=== PATIENT | male | born 1960 | race Caucasian/White ===

== ENCOUNTER 2021-11-17 14:53 | Outpatient (CLI) | payer OTHER, SELFPAY ==
[2021-11-17 21:35] LABS: Potassium* 3.6 mmol/L (3.6-5.1)
[2021-11-17 21:38] LABS: Alanine Aminotransferase* 24 U/L (4-50); Cholesterol* 208 mg/dL (90-199); HDL Cholesterol* 36 mg/dL (>=40); LDL Cholesterol Calculated 130 mg/dL (<100); Triglycerides* 212 mg/dL (40-149)
== END 2021-11-17 14:54 | disposition home or self-care (01) ==
LOC: LKVREF 14:53
PROVIDERS: PCP Family Medicine; Visit Provider Family Medicine
DX: E78.5 Hyperlipidemia, unspecified (principal); Z00.00 Encounter for general adult medical examination without abnormal findings; Z13.9 Encounter for screening, unspecified
CPT/HCPCS: 80061; 84132; 84460

== ENCOUNTER 2022-10-24 14:22 | Outpatient (CLI) | payer OTHER, SELFPAY | END 2022-10-24 14:23 | disposition home or self-care (01) | PROVIDERS: PCP Family Medicine; Visit Provider Family Medicine | DX: I71.20 Thoracic aortic aneurysm, without rupture, unspecified (principal); I51.7 Cardiomegaly; I34.0 Nonrheumatic mitral (valve) insufficiency; I48.91 Unspecified atrial fibrillation | CPT/HCPCS: 93306 ==

== ENCOUNTER 2023-07-17 08:01 | Outpatient (CLI) | payer BC, SELFPAY | END 2023-07-17 08:02 | disposition home or self-care (01) | LOC: WOUND 08:01 | PROVIDERS: PCP Family Medicine; Visit Provider Family Medicine | DX: I87.312 Chronic venous hypertension (idiopathic) with ulcer of left lower extremity (principal); L97.328 Non-pressure chronic ulcer of left ankle with other specified severity; F10.10 Alcohol abuse, uncomplicated | CPT/HCPCS: 11042; G0463 ==

== ENCOUNTER 2023-07-23 08:32 | Outpatient (CLI) | payer BC, SELFPAY | END 2023-07-23 08:33 | disposition home or self-care (01) | LOC: WOUND 08:32 | PROVIDERS: PCP Family Medicine; Visit Provider Nurse Practitioner Family | DX: I87.312 Chronic venous hypertension (idiopathic) with ulcer of left lower extremity (principal); I87.2 Venous insufficiency (chronic) (peripheral); L97.322 Non-pressure chronic ulcer of left ankle with fat layer exposed; I89.0 Lymphedema, not elsewhere classified; F10.10 Alcohol abuse, uncomplicated | CPT/HCPCS: 97597 ==

== ENCOUNTER 2023-07-30 09:04 | Outpatient (CLI) | payer BC, SELFPAY | END 2023-07-30 09:05 | disposition home or self-care (01) | LOC: WOUND 09:04 | PROVIDERS: PCP Family Medicine; Visit Provider Physician Assistant | DX: I87.312 Chronic venous hypertension (idiopathic) with ulcer of left lower extremity (principal); I87.2 Venous insufficiency (chronic) (peripheral); L97.322 Non-pressure chronic ulcer of left ankle with fat layer exposed; I89.0 Lymphedema, not elsewhere classified | CPT/HCPCS: 97597 ==

== ENCOUNTER 2023-08-06 10:05 | Outpatient (CLI) | payer BC, SELFPAY | END 2023-08-06 10:06 | disposition home or self-care (01) | LOC: WOUND 10:05 | PROVIDERS: PCP Family Medicine; Visit Provider Nurse Practitioner Family | DX: I87.312 Chronic venous hypertension (idiopathic) with ulcer of left lower extremity (principal); I87.2 Venous insufficiency (chronic) (peripheral); L97.322 Non-pressure chronic ulcer of left ankle with fat layer exposed; I89.0 Lymphedema, not elsewhere classified | CPT/HCPCS: 11042 ==

== ENCOUNTER 2023-08-09 15:36 | Outpatient (CLI) | payer BC, SELFPAY ==
--- OUTSIDE RECORDS SUMMARY | 2023-08-09 15:38 | XMS_ITS | Referral Summary ---
Author Name Unknown Organization [facility] Address [address] [place] [address] Care Team Providers Care Round Boner Name Role Phone Elsewhere, Pcp Primary Care Provider Unavailabl e Source Comments Patient records contain information from all sites at [facility]. For routine questions regarding patient records, call [phone] during business hours, M-F 8:00 AM - 5:00 PM Central Time. Record requests for emergency care only can be directed to [phone] at any time.[facility] Encounters Date Type Department Care Team Description 07/30/2023 2:45 PM CDT - 07/30/2023 11:59 PM CDT Hospital Encounter Department of Radiology in [place], [place] [address] [place] [phone] Cuco Brown P.A.-C. 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 0 Active triamterene-hydroCH LOROthiazide (DYAZIDE) 37.5-25 mg per capsule Take 2 capsules by mouth daily. 0 Active losartan (COZAAR) 50 mg tablet Take 50 mg by mouth daily. 0 Active potassium chloride (K-TAB) 20 mEq CR tablet Take 20 mEq by mouth daily. 0 Active sildenafil citrate (SILDENAFIL, ANTIHYPERTENSIVE, ORAL) Take 20 mg by mouth daily. 0 Active terazosin (HYTRIN) 1 mg capsule Take 1-2 mg by mouth at bedtime. 0 Active metoprolol succinate (TOPROL-XL) 50 mg 24 hr tablet Take 50 mg by mouth daily. Do not crush or chew. 0 Active triamcinolone (KENALOG) 0.1 % ointment Apply 1 application topically 2 (two) times a day. 0 Active furosemide (LASIX) 20 mg tablet Take 1 tablet (20 mg total) by mouth daily for 10 days. 10 tablet 0 12/27/2017 Active allopurinoL (ZYLOPRIM) 300 mg tablet Take 300 mg by mouth daily. 0 Active tadalafiL (CIALIS) 5 mg tablet Take 1 tablet by mouth daily. 0 05/22/[address] Active aspirin [address] tablet Take 1 tablet by mouth daily. 0 02/08/2017 Active Active Problems Problem Noted Date Diagnosed Date Morbid Obesity Body Mass Ind ex Greater Than Or Equal To 40 Adult 07/25/2015 Overview: Morbid Obesity Body Mass Index (BMI) >40 Adult Hypertension 08/18/2009 Overview: HTN [Hypertension] Immunizations Name Administration Dates Next Due DTP 04/01/1962,01/22/1962,1961 DTaP (Infanrix, [employer]) 06/13/2007 OPV 05/01/1962,04/01/1962 Smallpox 06/05/1962 Tdap 06/13/2007 Social History Tobacco Use Types Packs/Day Years Used Date Smoking Tobacco: Never Alcohol Use Standard Drinks/Week Comments Yes 0 (1 standard drink = 0.6 oz pur e alcohol) 6-10 beers daily Nutrition Answer Date Recorded Nutrition: EVOO Fat Source Unknown 07/04 Nutrition: Servings of Fruits/Vegetables per Day Not on file 07/04/2020 Dental Answer Date Recorded Dental: Regular Dentist Unknown 07/05/19 21 Sex and Gender Information Value Date Recorded Sex Assigned at Not on file Gender Identity Not on file Sexual Orientation Not on file Last Filed Vital Signs Vital Sign Reading Time Taken Comments Blood Pressure 157/93 12/27/2017 6:30 PM CDT Pulse 72 12/27/2017 6:30 PM CDT Temperature 36.4 ??C (97.5 ??F) 12/27/2017 1:44 PM CD T Respiratory Rate 21 12/27/2017 6:30 PM CDT Oxygen Saturation 96% 12/27/2017 6:30 PM CDT Inhaled Oxygen Concentration - - Weight 192 kg (423 lb 2.8 oz) 12/27/2017 1:35 PM CDT Height 190.3 cm (6' 2.92) 12/27/2017 1:35 PM CD T Body Mass Index 53 12/27/2017 1:35 PM CDT Plan of Treatment Not on file Procedures Procedure Name Priority Date/Time Associated Diagnosis Comments US LOWER EXTREMITY VENOUS INSUFFICIENCY BILATERAL RAD - Routine (most inpatients and all outpatients) 07/30/2023 5:03 PM CDT 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 Severe incompetence of the remnant great saphenous vein at the knee. The great saphenous vein connects to the superficial epigastric vein and anterior accessory vein in the mid thigh. Varicosities arise off the great saphenous vein in the mid thigh and connect to the anterior accessory saphenous vein. Varicosities also arise off the great saphenous vein in the calf and connect to the small saphenous vein. Mild incompetence of the anterior accessory saphenous vein. A paramedic vein is present off the posterior tibial vein. LEFT: Status post endovascular venous laser ablation of the great saphenous vein in 2017. 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 Varicosities arise off the anterior accessory saphenous vein in the upper thigh and connected to the remnant great saphenous vein in the calf and knee. A paramedic arises off the posterior tibial vein and has multiple varicosities, approximately 4 cm above a superficial ulcer in the medial left ankle. Narrative 07/30/2023 5:20 PM CDT EXAM: US LOWER EXTREMITY VENOUS INSUFFICIENCY BILATERAL Exam performed with color and spectral Doppler analysis. COMPARISON: Ultrasound lower extremity veins 12/27/2017 FINDINGS: RIGHT: Status post endovascular venous laser ablation of the great saphenous vein in 2017. Severe incompetence of the remnant great saphenous vein at the knee. The great saphenous vein connects to the superficial epigastric vein and anterior accessory vein in the mid thigh. Varicosities arise off the great saphenous vein in the mid thigh and connect to the anterior accessory saphenous vein. Varicosities also arise off the great saphenous vein in the calf and connect to the small saphenous vein. Mild incompetence of the anterior accessory saphenous vein. A paramedic vein is present off the posterior tibial vein. LEFT: Status post endovascular venous laser ablation of the great saphenous vein in 2017. 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 Varicosities arise off the anterior accessory saphenous vein in the upper thigh and connected to the remnant great saphenous vein in the calf and knee. A paramedic arises off the posterior tibial vein and has multiple varicosities, approximately 4 cm above a superficial ulcer in the medial left ankle. DVT SCREENING RIGHT: Negative for acute DVT. LEFT: Negative for acute DVT. Exam was performed with the patient standing and the leg being evaluated in a non weight-bearing position. Right CFV: Competent. Right FV: Competent. Right Pop: Competent. Right SFJ: Competent. Right AASV: Mild Incompetence. Right GSV Upper: Absent. Right GSV Knee: Severe Incompetence. Right GSV Calf : Competent. Right SPJ: Competent. Right SSV Calf: Competent. Right SFJ: 3.5 mm Right AASV: N/A Right GSV Upper: N/A Right GSV Knee: N/A Right SPJ: 6.5 mm Right SSV: 6.0 mm Left ??CFV: Competent. Left ??FV: Competent. Left ??Pop: Competent. Left ??SFJ: Competent. Left AASV: Competent. Left ??GSV Upper: Absent. Left ??GSV Knee: Severe Incompetence. Left ??GSV Calf: Competent. Left ??SPJ: Competent. Left ??SSV Calf: Competent. Left SFJ: 6.1 mm Left AASV: N/A Left GSV Upper: N/A Left GSV Knee: N/A Left SPJ: 6.4 mm Left SSV: 6.5 mm Absent= A Not Imaged= x Mild = 0.5 to 1 second Moderate= 1 to 3 seconds Severe = > 3 seconds * For the femoral and popliteal veins, significant reflux is greater than 1 second. May upgrade or downgrade depending on amplitude of reflux. Incidentally noted are multiple bilateral prominent inguinal lymph nodes, likely reactive. Procedure Note Clemente Liriano M.D. - 07/30/2023 EXAM: US LOWER EXTREMITY VENOUS INSUFFICIENCY BILATERAL Exam performed with color and spectral Doppler analysis. COMPARISON: Ultrasound lower extremity veins 12/27/2017 FINDINGS: RIGHT: Status post endovascular venous laser ablation of the greatsaphenous vein in 2017. Severe incompetence of the remnant great saphenousvein at the knee. The great saphenous vein connects to the superficialepigastric vein and anterior accessory vein in the mid thigh. Varicosities arise off the great saphenous vein inthe mid thigh and connect to the anterior accessory saphenous vein.Varicosities also arise off the great saphenous vein in the calf andconnect to the small saphenous vein. Mild incompetence of the anterior accessory saphenous vein. A paramedic veinis present off the posterior tibial vein. LEFT: Status post endovascular venous laser ablation of the greatsaphenous vein in 2017. Severe incompetence of the great saphenous vein inthe knee. Varicosities arise off the anterior accessory saphenous vein inthe upper thigh and connected to the remnant great saphenous vein in the calf and knee. A paramedic arises offthe posterior tibial vein and has multiple varicosities, approximately 4cm above a superficial ulcer in the medial left ankle. DVT SCREENING RIGHT: Negative for acute DVT. LEFT: Negative for acute DVT. Exam was performed with the patient standing and the leg being evaluatedin a non weight-bearing position. Right CFV: Competent. Right FV: Competent. Right Pop: Competent. Right SFJ: Competent. Right AASV: Mild Incompetence. Right GSV Upper: Absent. Right GSV Knee: Severe Incompetence. Right GSV Calf : Competent. Right SPJ: Competent. Right SSV Calf: Competent. Right SFJ: 3.5 mm Right AASV: N/A Right GSV Upper: N/A Right GSV Knee: N/A Right SPJ: 6.5 mm Right SSV: 6.0 mm Left CFV: Competent. Left FV: Competent. Left Pop: Competent. Left SFJ: Competent. Left AASV: Competent. Left GSV Upper: Absent. Left GSV Knee: Severe Incompetence. Left GSV Calf: Competent. Left SPJ: Competent. Left SSV Calf: Competent. Left SFJ: 6.1 mm Left AASV: N/A Left GSV Upper: N/A Left GSV Knee: N/A Left SPJ: 6.4 mm Left SSV: 6.5 mm Absent= A Not Imaged= x Mild = 0.5 to 1 second Moderate= 1 to 3 seconds Severe = > 3 seconds * For the femoral and popliteal veins, significant reflux is greater than1 second. May upgrade or downgrade depending on amplitude of reflux. Incidentally noted are multiple bilateral prominent inguinal lymph nodes,likely reactive. IMPRESSION: RIGHT: Status post endovascular venous laser ablation of the greatsaphenous vein in 2017. Severe incompetence of the remnant great saphenousvein at the knee. The great saphenous vein connects to the superficialepigastric vein and anterior accessory vein in the mid thigh. Varicosities arise off the great saphenous vein inthe mid thigh and connect to the anterior accessory saphenous vein.Varicosities also arise off the great saphenous vein in the calf andconnect to the small saphenous vein. Mild incompetence of the anterior accessory saphenous vein. A paramedic veinis present off the posterior tibial vein. LEFT: Status post endovascular venous laser ablation of the greatsaphenous vein in 2017. Severe incompetence of the great saphenous vein inthe knee. Varicosities arise off the anterior accessory saphenous vein inthe upper thigh and connected to the remnant great saphenous vein in the calf and knee. A paramedic arises offthe posterior tibial vein and has multiple varicosities, approximately 4cm above a superficial ulcer in the medial left ankle. Cuco Brown P.A.-C. IMG US PROCEDUR ES * Leg-General Surgery Image Exam (07/11/2023 2:10 PM DOOR FITTER) 07/11/2023 2:10 PM DOOR FITTER Narrative [facility] - 07/11/2023 2:12 PM DOOR FITTER This order has been created and auto-finalized to support the import of images acquired without order. The clinical documentation to support these images can be found on the encounter that produced images. Provider Not In System IMG NON RAD IMAGI NG PROCEDURES [facility] NA from Last 3 Months Care Teams Round Boner Relationship Specialty Start Date End Date Elsewhere, Pcp PCP - General Family Medicine 08/06/17
--- OUTSIDE RECORDS SUMMARY | 2023-08-09 15:38 | XMS_ITS | Encounter Summary ---
Author Name Unknown Organization [facility] Address [address] [place] [address] Care Team Providers Care Sports Fitness And Wellness Director Name Role Phone Elsewhere, Pcp Primary Care Provider Unavailabl e Encounter Details Date Type Department Care Team (Late st Contact Info) Description 03/25/2018 [facility] [address] [place] [address] Terrell Fernandez M.D. [address] [place] [address] Contracture Dupuytren's (Primary Dx) Social History Tobacco Use Types Packs/Day Years Used Date Smoking Tobacco: Never Alcohol Use Standard Drinks/Week Comments Yes 0 (1 standard drink = 0.6 oz pur e alcohol) 6-10 beers daily Sex and Gender Information Value Date Recorded Sex Assigned at Not on file Gender Identity Not on file Sexual Orientation Not on file documented as of this encounter Plan of Treatment Not on file documented as of this encounter Visit Diagnoses Diagnosis Contracture Dupuytren's- Primary documented in this encounter Care Teams Sports Fitness And Wellness Director Relationship Specialty Start Date End Date Elsewhere, Pcp PCP - General Family Medicine 08/06/17 documented as of this encounter
--- OUTSIDE RECORDS SUMMARY | 2023-08-09 15:38 | XMS_ITS | Data Portability ---
Author Name Unknown Address [address] [place] [address] Phone [phone] Organization [place] [facility] [employer] Address [address] [place] [address] Assessment Encounter Date Assessment Date Assessment LastModified by Organization Details LastModified Time 12/28/2022 12/28/2022 The patient was informed of his diagnosis as detailed down below. At this time the patient was informed that I would NOT recommend phenol and alcohol procedures secondary to my significant concern regarding healing that procedure due to his underlying skin envelope. The patient was understanding of this and will be seen in 2 weeks for a recheck. [email or web address] Not available 12/28/2022 15:54:11 Plan of Treatment Reminders Order Date Submit Date Provider Last Modified By Organization Details Last Modified Time Details Appointments None record ed. Lab None record ed. Referral None record ed. Procedures None record ed. Surgeries None record ed. Imaging None record ed. Medication Orders None record ed. Patient TargetsNo targets recorded. Patient InstructionsNo instructions recorded. Reason for Referral None Reported. Problems Name Status Onset Date Resolution Date Notes Provider Name and Address Organization Details Recorded Time Foot joint pain Active 019 Foot joint pain; Original Code: 104782613 Maximino ginal Codesystem: SNOMED CT Classifica tion: Medical Confi rmation Status: Confirmed Not Available [facility] 3 09:13:23 Hypertensive disorder Active 017 Hypertensive disorder; Original Code: 9387354206 Or iginal Codesystem: SNOMED CT Classifica tion: Medical Confi rmation Status: Confirmed Not Available [facility] 3 09:13:23 Peroneal tendinitis of left lower limb Active 019 Peroneal tendinitis of left lower limb; Original Code: [id number] Or iginal Codesystem: SNOMED CT Classifica tion: Medical Confi rmation Status: Confirmed Not Available [facility] 3 09:13:23 Heart disease Active 017 Heart disease; Original Code: 27812486 Orig inal Codesystem: SNOMED CT Classifica tion: Medical Confi rmation Status: Confirmed Not Available [facility] 3 09:13:23 Foot pain Active 017 Foot pain; Original Code: 470003231 Maximino ginal Codesystem: SNOMED CT Classifica tion: Medical Confi rmation Status: Confirmed Not Available [facility] 3 09:13:23 Congenital varus deformity of foot Active 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 Procedures Surgical History Date Name Laterality Status Provider Name and Address Organization Details Recorded Time [address] Christianson active Jackie ca [place] [facility] 01/11/2023 14:18:[address] Christianson completed Arvind George, CARLA [address] [place], [address], [facility] - [facility] 12/28/2022 15:48:44 Imaging Results None recorded. Procedure Notes None recorded. Medical Equipment None Reported. Medications Name Sig Start Date Stop Date Status Note LastModified by Organization Details LastModified Time terazosin 5 mg capsule TAKE 1 CAPSULE BY MOUTH ONCE DAILY AT BEDTIME active Not Available Not Available No t Available triamterene 37.5 mg-hydrochlor othiazide 25 mg capsule TAKE 2 CAPSULES BY MOUTH IN THE MORNING active Not Available Not Available No t Available potassium chloride ER 20 mEq tablet,extend ed release(part/ cryst) TAKE 2 TABLETS BY MOUTH TWICE DAILY active Not Available Not Available No t Available allopurinol 300 mg tablet TAKE 1 TABLET BY MOUTH ONCE DAILY active Not Available Not Available No t Available furosemide 20 mg tablet TAKE 1 TABLET BY MOUTH ONCE DAILY IN THE MORNING AND 2 ONCE DAILY AT NOON -- TOTAL DAILY DOSE OF 60MG active Not Available Not Available No t Available metoprolol succinate ER 25 mg tablet,extend ed release 24 hr TAKE 1 TABLET BY MOUTH ONCE DAILY active Not Available Not Available No t Available tadalafil 5 mg tablet TAKE 1 TABLET BY MOUTH ONCE DAILY active Not Available Not Available No t Available Vitals None Recorded Social History None recorded. Functional Status None recorded. Mental Status None recorded. Family History Nothing Reported. Medical History No medical history recorded. Past Encounters Encounter ID Performer Location Encounter Start Date Encounter Closed Date Diagnosis/Indication Diagnosis SNOMED-CT Code [id number] Arvind George DPM [place] [facility] [address] [place] [address] 12/28/2022 14:45:58 12/28/2022 16:06:42 Paronychia of toe of right foot [id number] 02 Health Concerns Section Related Observation LastModified by Organization Detai ls LastModified Time None Recorded Concern Status LastModified by Organization Details LastModified Time None Recorded Advance Directives Directive None Recorded Payers Encounter Date Sequence Insurance Name Policy Number Policy Lin Covered Member ID Lin Member ID Guarantor Name 12/28/2022 1 [employer] - [facility] - CHOICE PLUS (POS) Robert Charles [id number] Robert Charles Notes Date Note Type Note Provider Name and Address Organization Details Recorded Time 12/28/2022 text/html HPI Notes: Patient is a 62 year old male established patient who presents to clinic today for evaluation of an infected, ingrown nail to the right big toe. Mentions that he has had these removed in the past by my partner and he has noticed that it became ingrown with substantial infection about 1 month prior to the right [place]. Arvind George DPM [address] [place], [address], [facility] - [facility] 12/28/2022 15:54:14
--- OUTSIDE RECORDS SUMMARY | 2023-08-09 15:38 | XMS_ITS ---
Author Name Unknown Organization [facility] Address [address] [place] [address] Care Team Providers Care Pawn Shop Keeper Name Role Phone Unavailable Unavailable Unavailable Surgery Details Not on file Complications Check Surgery Details section. Procedure Estimated Blood Loss Check Surgery Details section. Procedure Findings Check Surgery Details section. Procedure Specimens Taken Check Surgery Details section.
--- OUTSIDE RECORDS SUMMARY | 2023-08-09 15:38 | XMS_ITS | Encounter Summary ---
Author Name Unknown Organization [facility] Address [address] [place] [address] Care Team Providers Care Business Attorney Name Role Phone Elsewhere, Pcp Primary Care Provider Unavailabl e Reason for Referral * Outpatient (Routine) - Closed Specialty Diagnoses / Procedures Referred By Contac t Referred To Contact Diagnoses 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 Procedures US Lower Extremity Venous Insufficiency Bilateral Cuco Brown P.A.-C. [address] [place] [address] [facility] Region Referral ID Status Reason Start Date Expiration Date Visits Re quested Visits Authorized [id number] Closed 07/11/2023 07/10/2024 1 1 ERS' COMPENSATION HEARINGS OFFICER Reason for Visit * Reason Comments Consult Varicose veins * Appointment Request (Routine) - Closed Specialty Diagnoses / Procedures Referred By Contac t Referred To Contact General Surgery Referral ID Status Reason Start Date Expiration Date Visits Re quested Visits Authorized [id number] Closed 07/05/2023 07/04/2024 1 1 Encounter Details Date Type Department Care Team (Latest Contact Info) Description 07/11/2023 2:00 PM WORKERS' COMPENSATION HEARINGS OFFICER Comprehensive Visit Department of General Surgery in [place], [place] [address], [place] [address] Cuco Brown P.A.-C. [address], [place] [address] 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 (Primary Dx) Social History Tobacco Use Types [...] on file documented as of this encounter Consult Notes * Cuco Brown P.A.-C. - 07/11/2023 2:00 PM CST SUBJECTIVE REFERRAL: REASON FOR CONSULT Robert Charles is a 62 y.o. yo who presents for evaluation of Varicose Veins. He was referred by Rickie Bailey MD HISTORY OF PRESENT ILLNESS Mr. Charles is being seen in consultation today for complaints of varicose veins. Patient states that on July 02 he had a random occurrence of one of his varicose veins 'springing a leak' and bleeding heavily for which he had to seek emergency care. This has happened to him several times in the past. He did have a bilateral EVLT of his GSV back in 2017. Which leg: left If both, which is worse: left How long has the patient had problems: two months has been issues with bruising and bleeding Wear compression stockings: no - patient states that he is no longer able to get them on due to hisarthritis. He does use velcro compression devices which he has been doing for at least a 'couple years' - they do help somewhat with his swelling, but not with any bleeding. History of DVT: No Does the patient take anticoagulation: Aspirin (81 mg) occasionally History of superficial bleeding episodes: Yes, describe: multiple spontaneous bleeding from visiblevaricose veins History of trauma or broken bones to legs: No Does the patient have wounds (prolonged healing): Yes, describe: right lower extremity was treated a couple years ago for a non healing wound. 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 OBJECTIVE PHYSICAL EXAM General: Alert and oriented x 3 in no acute distress sitting in office chair. Legs: Severe edema in bilateral lower extremities. Left leg with some varicosities with the posterior aspect otherwise some minor small varicosities scattered throughout. Wound on left ankle. Pictures in [facility] Ultrasound: not done. Ordered today ASSESSMENT / PLAN #1 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 I have seen and examined Robert Charles in consultation for varicose veins. The patient wasadvised of the need to wear obky-[id number]-[id number] compression stockings for a minimum of 3 months. They understand once the ultrasound is complete, it will be reviewed by Dr. Tobias for consideration of treatment. Additionally, the nursing staff will complete the prior authorization process after which they will receive a phone call to notify them of approval and discuss scheduling the procedure. All of their questions were answered. ERS' COMPENSATION HEARINGS OFFICER documented in this encounter Plan of Treatment Not on file documented as of this encounter Results * US Lower Extremity Venous Insufficiency [...] of the anterior accessory saphenous vein. A branch administrator vein is present off the posterior tibial vein. LEFT: Status post endovascular venous laser ablation of the great saphenous vein in 2017. 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 Varicosities arise off the anterior accessory saphenous vein in the upper thigh and connected to the remnant great saphenous vein in the calf and knee. A branch administrator arises off the posterior tibial vein and [...] of the anterior accessory saphenous vein. A branch administrator vein is present off the posterior tibial vein. LEFT: Status post endovascular venous laser ablation of the great saphenous vein in 2017. 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 Varicosities arise off the anterior accessory saphenous vein in the upper thigh and connected to the remnant great saphenous vein in the calf and knee. A branch administrator arises off the posterior tibial vein and [...] of the anterior accessory saphenous vein. A branch administrator veinis present off the posterior tibial vein. LEFT: Status post endovascular venous laser ablation of the greatsaphenous vein in 2017. Severe incompetence of the great saphenous vein inthe knee. Varicosities arise off the anterior accessory saphenous vein inthe upper thigh and connected to the remnant great saphenous vein in the calf and knee. A branch administrator arises offthe posterior tibial vein and has [...] of the anterior accessory saphenous vein. A branch administrator veinis present off the posterior tibial vein. LEFT: Status post endovascular venous laser ablation of the greatsaphenous vein in 2017. Severe incompetence of the great saphenous vein inthe knee. Varicosities arise off the anterior accessory saphenous vein inthe upper thigh and connected to the remnant great saphenous vein in the calf and knee. A branch administrator arises offthe posterior tibial vein and has multiple varicosities, approximately 4cm above a superficial ulcer in the medial left ankle. Cuco GRANT US PROCEDUR ES documented in this encounter Visit Diagnoses Diagnosis 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- Primary 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 documented in this encounter Care Teams Business Attorney Relationship Specialty Start Date End Date Elsewhere, Pcp PCP - General Family Medicine 08/06/17 documented as of this encounter
--- OUTSIDE RECORDS SUMMARY | 2023-08-09 15:38 | XMS_ITS | Encounter Summary ---
Author Name Unknown Organization [facility] Address [address] [place] [address] Care Team Providers Care Cartography/Mapping Technician Name Role Phone Elsewhere, Pcp Primary Care Provider Unavailabl e Reason for Visit * Reason Comments Bleeding/Bruising Encounter Details Date Type Department Care Team (Late st Contact Info) Description 07/02/2023 9:37 PM SUPERVISOR CARBON PAPER COATING - 07/02/2023 11:51 PM SUPERVISOR CARBON PAPER COATING Emergency [facility] [address] [place] [id number] Varicose Veins Of Right Lower Extremity With Ulcer Of Ankle (HCC) (Primary Dx) Discharge Disposition: Home or Self Care Social History Tobacco Use Types Packs/Day Years [...] on file documented as of this encounter Medications at Time of Discharge Medication Sig Dispensed Refills Start Date End Date aspirin [address] tablet Take 1 tablet by mouth daily. 0 02/08/2017 aspirin, buffered, 325 mg tablet Take 325 mg by mouth daily. 0 furosemide (LASIX) 20 mg tablet Take 1 tablet (20 mg total) by mouth daily for 10 days. 10 tablet 0 12/27/2017 losartan (COZAAR) 50 mg tablet Take 50 mg by mouth daily. 0 metoprolol succinate (TOPROL-XL) 50 mg 24 hr tablet Take 50 mg by mouth daily. Do not crush or chew. 0 potassium chloride (K-TAB) 20 mEq CR tablet Take 20 mEq by mouth daily. 0 sildenafil citrate (SILDENAFIL, ANTIHYPERTENSIVE, ORAL) Take 20 mg by mouth daily. 0 tadalafiL (CIALIS) 5 mg tablet Take 1 tablet by mouth daily. 0 05/22/2023 terazosin (HYTRIN) 1 mg capsule Take 1-2 mg by mouth at bedtime. 0 triamcinolone (KENALOG) 0.1 % ointment Apply 1 application topically 2 (two) times a day. 0 triamterene-hydroCHLOR Othiazide (DYAZIDE) 37.5-25 mg per capsule Take 2 capsules by mouth daily. 0 documented as of this encounter Plan of Treatment Not on file documented as of this encounter Visit Diagnoses Diagnosis Varicose Veins Of Right Lower Extremity With Ulcer Of Ankle (HCC)- Primary documented in this encounter Care Teams Cartography/Mapping Technician Relationship Specialty Start Date End Date Elsewhere, Pcp PCP - General Family Medicine 08/06/17 documented as of this encounter
--- OUTSIDE RECORDS SUMMARY | 2023-08-09 15:38 | XMS_ITS | Clinical Summary ---
Author Name Unknown Organization [facility] Address [address] [place] [address] Care Team Providers Care Plan Coordinator Name Role Phone Elsewhere, Pcp Primary Care Provider Unavailabl e Source Comments Patient records contain information from all sites at [facility]. For routine questions regarding patient records, call [phone] during business hours, M-F 8:00 AM - 5:00 PM Central Time. Record requests for emergency care only can be directed to [phone] at any time.[facility] Allergies Active Allergy Reactions Criticality Noted Date [...] >40 Adult Hypertension 08/18/2009 Overview: HTN [Hypertension] Encounters Date Type Department Care Team Description 07/30/2023 2:45 PM CDT - 07/30/2023 11:59 PM CDT Hospital Encounter Department of Radiology in [place], [place] [address], [place] [address] Cuco Brown P.AJorden-C. 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 Discharge Disposition: Home or Self Care 07/11/2023 2:10 PM CASTING ROOM OPERATOR Ancillary Procedure Department of General Surgery 07/11/2023 2:00 PM CASTING ROOM OPERATOR Comprehensive Visit Department of General Surgery in [place], [place] [address], [place] [address] Cuco Brown P.A.-C. 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 (Primary Dx) 07/02/2023 9:37 PM CASTING ROOM OPERATOR - 07/02/2023 11:51 PM CASTING ROOM OPERATOR Emergency [facility] [address] [place] [phone] Varicose Veins Of Right Lower Extremity With Ulcer Of Ankle (HCC) (Primary Dx) Discharge Disposition: Home or Self Care from Last 3 Months Immunizations Name Administration Dates Next Due DTP 04/01/1962,01/22/1962,1961 DTaP (Infanrix, [employer]) 06/13/2007 OPV 05/01/1962,04/01/1962 Smallpox 06/05/1962 Tdap 06/13/2007 Family History Medical History Relation Name Comments Cancer Brother Testicular Canc er Leukemia Father Hypertension Mother Stroke Mother Relation Name Status Comments Brother Father Mother Social History Tobacco Use Types Packs/Day Years Used Date Smoking Tobacco: Never Alcohol Use Standard Drinks/Week Comments Yes 0 (1 standard drink = 0.6 oz pur e alcohol) 6-10 beers daily Nutrition Answer Date Recorded Nutrition: EVOO Fat Source Unknown 07/04 Nutrition: Servings of Fruits/Vegetables per Day Not on file 07/04/2020 Dental Answer Date Recorded Dental: Regular Dentist Unknown 07/05/19 Sex and Gender Information Value Date Recorded [...] 12/27/2017 1:35 PM CDT Plan of Treatment Health Maintenance Due Date Last Done Comments CT Colonography 1961 Cologuard 1961 FIT 1961 HIV Screening 1961 Hepatitis C Screening 1960 Office Visit for Blood Pressure Check / Re-check 1961 Orthopoxvirus Vaccine (1 - Risk 2-dose series) 1961 06/05/1962 Zoster Vaccines (1 of 2) 09/30/2011 Creatinine Level (Kidney Function Test) 12/27/2018 12/27/2017, 01/25/2016, 01/21/2015, Additional history exists Potassium Level 12/27/2018 12/27/2017, 01/05, 01/21/2015, Additional history exists Sodium Level 12/27/2018 12/27/2017, 01/05, 01/21/2015, Additional history exists Fasting Glucose for Diabetes Screening 12/27/2020 12/27/2017, 01/25/2016, 01/21/2015, Additional history exists Lipid (Cholesterol) Screening 01/24/2021 01/25/2016, 01/21/2015, 01/11/2014, Additional history exists Colonoscopy 06/02/2021 06/02/2011 Colorectal Cancer Screening 06/02/2021 COVID-19 Vaccine ( - 2022- season) 2023 Influenza Vaccine (#1) 2023 Depression Screening (Annual PHQ-2) 05/06/2023 DTaP,Tdap,and Td Vaccines (7 - Td or Tdap) 09/05/2028 09/05/2018, 06/13/2007, 06/13/2007, Additional history exists Pneumococcal vaccine (0-64 years) Aged Out No longer eligible based on patient's age to complete this topic Procedures Procedure Name Priority Date/Time Associated Diagnosis Comments US LOWER EXTREMITY VENOUS INSUFFICIENCY BILATERAL RAD - Routine (most inpatients and all outpatients) 07/30/2023 5:03 PM CDT 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 GENERAL SURGERY IMAGE EXAM Routine 07/11/2023 2:10 PM CASTING ROOM OPERATOR from Last 3 Months Results * US [...] of the anterior accessory saphenous vein. A web content director vein is present off the posterior tibial vein. LEFT: Status post endovascular venous laser ablation of the great saphenous vein in 2017. 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 Varicosities arise off the anterior accessory saphenous vein in the upper thigh and connected to the remnant great saphenous vein in the calf and knee. A web content director arises off the posterior tibial vein and [...] of the anterior accessory saphenous vein. A web content director vein is present off the posterior tibial vein. LEFT: Status post endovascular venous laser ablation of the great saphenous vein in 2017. 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 Varicosities arise off the anterior accessory saphenous vein in the upper thigh and connected to the remnant great saphenous vein in the calf and knee. A web content director arises off the posterior tibial vein and [...] of the anterior accessory saphenous vein. A web content director veinis present off the posterior tibial vein. LEFT: Status post endovascular venous laser ablation of the greatsaphenous vein in 2017. Severe incompetence of the great saphenous vein inthe knee. Varicosities arise off the anterior accessory saphenous vein inthe upper thigh and connected to the remnant great saphenous vein in the calf and knee. A web content director arises offthe posterior tibial vein and has [...] of the anterior accessory saphenous vein. A web content director veinis present off the posterior tibial vein. LEFT: Status post endovascular venous laser ablation of the greatsaphenous vein in 2017. Severe incompetence of the great saphenous vein inthe knee. Varicosities arise off the anterior accessory saphenous vein inthe upper thigh and connected to the remnant great saphenous vein in the calf and knee. A web content director arises offthe posterior tibial vein and has multiple varicosities, approximately 4cm above a superficial ulcer in the medial left ankle. Cuco Brown P.A.-C. IMG US PROCEDUR ES * Leg-General Surgery Image Exam (07/11/2023 2:10 PM CASTING ROOM OPERATOR) 07/11/2023 2:10 PM CASTING ROOM OPERATOR Narrative IIMS - 07/11/2023 2:12 PM CASTING ROOM OPERATOR This order has been created and auto-finalized to support the import of images acquired without order. The clinical documentation to support these images can be found on the encounter that produced images. Provider Not In System IMG NON RAD IMAGI NG PROCEDURES IIM[facility] NA from Last 3 Months Care Teams Plan Coordinator Relationship Specialty Start Date End Date Elsewhere, Pcp PCP - General Family Medicine 08/06/17
--- OUTSIDE RECORDS SUMMARY | 2023-08-09 15:38 | XMS_ITS | Encounter Summary ---
Author Name Unknown Organization [facility] Address [address] [place] [address] Care Team Providers Care Drywall Hanger Framer Name Role Phone Elsewhere, Pcp Primary Care Provider Unavailabl e Encounter Details Date Type Department Care Team (Late st Contact Info) Description 07/11/2023 2:10 PM HAND PATTERN MARKER Ancillary Procedure Department of General Surgery Social History Tobacco Use Types Packs/Day Years [...] on file documented as of this encounter Procedures Procedure Name Priority Date/Time Associated Diagnosis Comments GENERAL SURGERY IMAGE EXAM Routine 07/11/2023 2:10 PM HAND PATTERN MARKER documented in this encounter Results * Leg-General Surgery Image Exam (07/11/2023 2:10 PM HAND PATTERN MARKER) 07/11/2023 2:10 PM HAND PATTERN MARKER Narrative IIMS - 07/11/2023 2:12 PM HAND PATTERN MARKER This order has been created and auto-finalized to support the import of images acquired without order. The clinical documentation to support these images can be found on the encounter that produced images. Provider Not In System IMG NON RAD IMAGI NG PROCEDURES [facility] NA documented in this encounter Visit Diagnoses Not on filedocumented in this encounter Care Teams Drywall Hanger Framer Relationship Specialty Start Date End Date Elsewhere, Pcp PCP - General Family Medicine 08/06/17 documented as of this encounter
--- OUTSIDE RECORDS SUMMARY | 2023-08-09 15:38 | XMS_ITS | Encounter Summary ---
Author Name Unknown Organization [facility] Address [address] [place] [address] Care Team Providers Care Automotive Parts Salesperson Name Role Phone Elsewhere, Pcp Primary Care Provider Unavailabl e Reason for Referral * Outpatient (Routine) - Closed Specialty Diagnoses / Procedures Referred By Clary pacheco Referred To Contact Diagnoses 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 Procedures US Lower Extremity Venous Insufficiency Bilateral Cuco Brown P.A.-C. [address] [place] [address] [facility] Region Referral ID Status Reason Start Date Expiration Date Visits Re quested Visits Authorized [id number] Closed 07/11/2023 07/10/2024 1 1 Reason for Visit * Outpatient (Routine) - Closed Specialty Diagnoses / Procedures Referred By Clary pacheco Referred To Contact Diagnoses 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 Procedures US Lower Extremity Venous Insufficiency Bilateral Cuco Brown P.A.-C. [address] [place] [address] [facility] Region Referral ID Status Reason Start Date Expiration Date Visits Re quested Visits Authorized [id number] Closed 07/11/2023 07/10/2024 1 1 Encounter Details Date Type Department Care Team (Latest Contact Info) Description 07/30/2023 2:45 PM CDT - 07/30/2023 11:59 PM CDT Hospital Encounter Department of Radiology in [place], [place] [address] [place] [address] Cuco Brown P.A.-C. [address] [place] [address] 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 Discharge Disposition: Home or Self Care Social [...] Sig Dispensed Refills Start Date End Date allopurinoL (ZYLOPRIM) 300 mg tablet Take 300 mg by mouth daily. [address] tablet Take 1 tablet by mouth daily. 0 02/08/2017 aspirin, buffered, 325 mg tablet Take 325 mg by mouth daily. 0 losartan (COZAAR) 50 mg tablet Take 50 [...] topically 2 (two) times a day. 0 triamterene-hydroCHLORO thiazide (DYAZIDE) 37.5-25 mg per capsule Take 2 [...] With Other Complications documented in this encounter Results * US Lower Extremity Venous Insufficiency Bilateral (07/30/2023 5:03 PM CDT) Anatomical Region Laterality Modality Lower Extremity, Ultrasound RST LOS, Ultrasound ARZ LOS, Ultrasound FLA LOS, Procedural, Vascular Interventional NWWI LOS Bilateral Ultrasound Impressions 07/30/2023 5:20 PM CDT RIGHT: Status post endovascular venous laser ablation of the great saphenous vein in 2016. Severe incompetence of the remnant great saphenous [...] of the anterior accessory saphenous vein. A billing typist vein is present off the posterior tibial vein. LEFT: Status post endovascular venous laser ablation of the great saphenous vein in 2017. 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 Varicosities arise off the anterior accessory saphenous vein in the upper thigh and connected to the remnant great saphenous vein in the calf and knee. A billing typist arises off the posterior tibial vein and [...] of the anterior accessory saphenous vein. A billing typist vein is present off the posterior tibial vein. LEFT: Status post endovascular venous laser ablation of the great saphenous vein in 2017. 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 Varicosities arise off the anterior accessory saphenous vein in the upper thigh and connected to the remnant great saphenous vein in the calf and knee. A billing typist arises off the posterior tibial vein and [...] of the anterior accessory saphenous vein. A billing typist veinis present off the posterior tibial vein. LEFT: Status post endovascular venous laser ablation of the greatsaphenous vein in 2017. Severe incompetence of the great saphenous vein inthe knee. Varicosities arise off the anterior accessory saphenous vein inthe upper thigh and connected to the remnant great saphenous vein in the calf and knee. A billing typist arises offthe posterior tibial vein and has [...] of the anterior accessory saphenous vein. A billing typist veinis present off the posterior tibial vein. LEFT: Status post endovascular venous laser ablation of the greatsaphenous vein in 2017. Severe incompetence of the great saphenous vein inthe knee. Varicosities arise off the anterior accessory saphenous vein inthe upper thigh and connected to the remnant great saphenous vein in the calf and knee. A billing typist arises offthe posterior tibial vein and has multiple varicosities, approximately 4cm above a superficial ulcer in the medial left ankle. Cuco Bronw P.A.-C. Kasey RDORIGUEZ PROCEDUR ES documented in this encounter Visit Diagnoses Diagnosis 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 documented in this encounter Care Teams Automotive Parts Salesperson Relationship Specialty Start Date End Date Elsewhere, Pcp PCP - General Family Medicine 08/06/17 documented as of this encounter
--- OUTSIDE RECORDS SUMMARY | 2023-08-09 15:38 | XMS_ITS | Clinical Summary ---
Author Name Unknown Organization [facility] Address [place], [place] [address] Care Team Providers Care Physician Office Secretary Name Role Phone Terrell Fernandez MD Primary Care Provider [phone] Allergies Active Allergy Reactions Criticality Noted Date Comments Amlodipine Arthralgia 07/04/2018 Lisinopril Cough 02/07/2018 Losartan Intolerance-Can't Take 07/04/2018 Medications Medication Sig Dispensed Refills Start Date End Date Status omeprazole (PRILOSEC) 20 mg capsuleIndication s:gastroesophagea l reflux disease Take 20 mg by mouth once daily before a meal. As needed Indications: GASTROESOPHAGEAL REFLUX Active tadalafil (CIALIS) 5 mg tabletIndications :erectile dysfunction Take 5 mg by mouth once daily if needed. Take 30 minutes before sexual activity. Indications: ERECTILE DYSFUNCTION Active triamterene-hydro chlorothiazide, 75-50 mg, (MAXZIDE) 75-50 mg tabletIndications :hypertension Take 2 tablets by mouth every morning. Indications: hypertension 0 02/08/2017 Active aspirin (ECOTRIN) 81 mg enteric coated tablet Take 1 tablet by mouth once daily with a meal. 0 02/08/2017 Active potassium chloride (KLOR-CON M20) 20 mEq Extended-Release tablet Take 1 tablet by mouth once daily with a meal. 0 02/08/2017 Active metoprolol succinate (TOPROL XL) 50 mg sustained-release tablet Take 1 tablet by mouth once daily. 0 07/04/2018 Active Terazosin HCl 10 mg capsuleIndication s:Essential hypertension Take 1 capsule by mouth at bedtime. 90 capsule 3 07/04/2018 Active furosemide (LASIX) 20 mg tabletIndications :Essential hypertension Take 2 tablets by mouth every morning. 0 07/04/2018 Active allopurinoL (ZYLOPRIM) 100 mg tablet Take 100 mg by mouth once daily. 07/20/2019 Active Active Problems Problem Noted Date Diagnosed Date Right ventricular dilation 08/28/2019 Morbid obesity due to excess calories 08/28/2019 Permanent atrial fibrillation 08/28/2019 HTN (hypertension) 08/28/2019 Ascending aortic aneurysm 08/28/2019 SAMIR (obstructive sleep apnea) 08/28/2019 Encounters Date Type Department Care Team Description 07/02/2023 9:38 PM DISTRICT ADMINISTRATIVE ASSISTANT - 07/02/2023 11:51 PM DISTRICT ADMINISTRATIVE ASSISTANT Emergency [facility] [address] [place] [address] Rickie Bailey MD Varicose veins of ankle (Primary Dx) Discharge Disposition: Home Self Care 07/02/2023 Travel from Last 3 Months Social History Tobacco Use Types Packs/Day Years Used Date Smoking Tobacco: Never Smokeless Tobacco: Never Alcohol Use Standard Drinks/Week Comments Yes 0 (1 standard drink = 0.6 oz pur e alcohol) 2-6 Drinks a day. Social Connections Answer Date Recorded Frequency of Communication with Friends and Fami ly Not on file 05/06/2021 Financial Resource Strain Answer Date R ecorded Difficulty of Paying Living Expenses Not on file 05/06/2021 Difficulty of Paying Living Expenses Not on file 05/06/2021 Sex and Gender Information Value Date Recorded Sex Assigned at Not on file Gender Identity Not on file Sexual Orientation Not on file Obstetrics History Last Filed Vital Signs Vital Sign Reading Time Taken Comments Blood Pressure 135/85 07/02/2023 11:00 PM DISTRICT ADMINISTRATIVE ASSISTANT Pulse 92 07/02/2023 11:00 PM DISTRICT ADMINISTRATIVE ASSISTANT Temperature 37.1 ??C (98.7 ??F) 07/02/2023 9:49 PM CS T Respiratory Rate 18 07/02/2023 11:0 0 PM DISTRICT ADMINISTRATIVE ASSISTANT Oxygen Saturation 96% 07/02/2023 11: 00 PM DISTRICT ADMINISTRATIVE ASSISTANT Inhaled Oxygen Concentration - - Weight 203.8 kg (449 lb 4.8 oz) 07/02/2023 9:49 PM DISTRICT ADMINISTRATIVE ASSISTANT Height 190.5 cm (6' 3) 07/02/2023 9:49 PM DISTRICT ADMINISTRATIVE ASSISTANT Body Mass Index 56.16 07/02/2023 9:49 PM DISTRICT ADMINISTRATIVE ASSISTANT Plan of Treatment Health Maintenance Due Date Last Done Comments Tdap 1972 Depression screening for age 12+ 1973 HIV for age 15-65 1976 Hepatitis C screening for ag e 18-79 09/30/1979 Tetanus booster 1981 Colonoscopy through age 75 2006 Lipids for age 45-75 2006 Zoster (shingles) series for age 50+ (1 of 2) 09/30/2011 BMI (ht and wt on same day) for age 18+ 08/27/2020 08/28/2019 COVID-19 vaccine series ( season) 2023 Influenza for age 50-64 01/05/2024 Pneumococcal series for age 6-64 Aged Out No longer eligible based on patient's age to complete this topic Advance Directives * Full Code (Latest Code Status on File) Date Activated Date Inactivated Comments 06/02/2012 7:11 AM 06/02/2012 12:53 PM Care Teams Physician Office Secretary Relationship Specialty Start Date End Date Terrell Fernandez MD [address] [place] [address] PCP - General Family Practice 08/11/21
--- OUTSIDE RECORDS SUMMARY | 2023-08-09 15:38 | XMS_ITS | Encounter Summary ---
Author Name Unknown Organization [facility] Address [address] [place] [address] Care Team Providers Care Nail Making Machine Tender Name Role Phone Elsewhere, Pcp Primary Care Provider Unavailabl e Encounter Details Date Type Department Care Team (Late st Contact Info) Description 11/07/2017 [facility] [address] [place] [address] Terrell Fernandez M.D. [address] [place] [address] Obesity Unspecified (Primary Dx) Social History Tobacco Use Types Packs/Day Years Used Date Smoking Tobacco: Never Sex and Gender Information Value Date Recorded Sex Assigned at Not on file Gender Identity Not on file Sexual Orientation Not on file documented as of this encounter Plan of Treatment Not on file documented as of this encounter Visit Diagnoses Diagnosis Obesity Unspecified- Primary documented in this encounter Care Teams Nail Making Machine Tender Relationship Specialty Start Date End Date Elsewhere, Pcp PCP - General Family Medicine 08/06/17 documented as of this encounter
== END 2023-08-09 15:37 | disposition home or self-care (01) ==
LOC: WOUND 15:36
PROVIDERS: PCP Family Medicine; Visit Provider Nurse Practitioner Family
DX: I87.312 Chronic venous hypertension (idiopathic) with ulcer of left lower extremity (principal); I87.2 Venous insufficiency (chronic) (peripheral); L97.322 Non-pressure chronic ulcer of left ankle with fat layer exposed; I89.0 Lymphedema, not elsewhere classified
CPT/HCPCS: 29581

== ENCOUNTER 2023-08-13 09:56 | Outpatient (CLI) | payer BC, SELFPAY ==
--- OUTSIDE RECORDS SUMMARY | 2023-08-13 09:58 | XMS_ITS | Clinical Summary ---
Author Name Unknown Organization [facility] Address [address] [place] [address] Care Team Providers Care Die Drawing Checker Name Role Phone Elsewhere, Pcp Primary Care Provider Unavailabl e Source Comments Patient records contain information from all sites at [facility]. For routine questions regarding patient records, call [phone] during business hours, M-F 8:00 AM - 5:00 PM Central Time. Record requests for emergency care only can be directed to [phone] at any time.[facility] Allergies Active Allergy Reactions Criticality Noted Date [...] CDT Hospital Encounter Department of Radiology in [place], [place] [address], [place] [address] Cuco Brown P.AJorden-C. 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 Discharge Disposition: Home or Self Care 07/11/2023 2:10 PM CARBON SEQUESTRATION PLANT ENGINEER Ancillary Procedure Department of General Surgery 07/11/2023 2:00 PM CARBON SEQUESTRATION PLANT ENGINEER Comprehensive Visit Department of General Surgery in [place], [place] [address], [place] [address] Cuco Brown P.A.-C. 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 (Primary Dx) 07/02/2023 9:37 PM CARBON SEQUESTRATION PLANT ENGINEER - 07/02/2023 11:51 PM CARBON SEQUESTRATION PLANT ENGINEER Emergency [facility] [address] [place] [phone] Varicose Veins Of Right Lower Extremity With [...] SURGERY IMAGE EXAM Routine 07/11/2023 2:10 PM CARBON SEQUESTRATION PLANT ENGINEER from Last 3 Months Results * US [...] of the anterior accessory saphenous vein. A manager service desk vein is present off the posterior tibial vein. LEFT: Status post endovascular venous laser ablation of the great saphenous vein in 2017. 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 Varicosities arise off the anterior accessory saphenous vein in the upper thigh and connected to the remnant great saphenous vein in the calf and knee. A manager service desk arises off the posterior tibial vein and [...] of the anterior accessory saphenous vein. A manager service desk vein is present off the posterior tibial vein. LEFT: Status post endovascular venous laser ablation of the great saphenous vein in 2017. 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 Varicosities arise off the anterior accessory saphenous vein in the upper thigh and connected to the remnant great saphenous vein in the calf and knee. A manager service desk arises off the posterior tibial vein and [...] of the anterior accessory saphenous vein. A manager service desk veinis present off the posterior tibial vein. LEFT: Status post endovascular venous laser ablation of the greatsaphenous vein in 2017. Severe incompetence of the great saphenous vein inthe knee. Varicosities arise off the anterior accessory saphenous vein inthe upper thigh and connected to the remnant great saphenous vein in the calf and knee. A manager service desk arises offthe posterior tibial vein and has [...] of the anterior accessory saphenous vein. A manager service desk veinis present off the posterior tibial vein. LEFT: Status post endovascular venous laser ablation of the greatsaphenous vein in 2017. Severe incompetence of the great saphenous vein inthe knee. Varicosities arise off the anterior accessory saphenous vein inthe upper thigh and connected to the remnant great saphenous vein in the calf and knee. A manager service desk arises offthe posterior tibial vein and has multiple varicosities, approximately 4cm above a superficial ulcer in the medial left ankle. Cuco Brown P.A.-C. IMG US PROCEDUR ES * Leg-General Surgery Image Exam (07/11/2023 2:10 PM CARBON SEQUESTRATION PLANT ENGINEER) 07/11/2023 2:10 PM CARBON SEQUESTRATION PLANT ENGINEER Narrative IIMS - 07/11/2023 2:12 PM CARBON SEQUESTRATION PLANT ENGINEER This order has been created and auto-finalized to support the import of images acquired without order. The clinical documentation to support these images can be found on the encounter that produced images. Provider Not In System IMG NON RAD IMAGI NG PROCEDURES IIMS NA from Last 3 Months Care Teams Die Drawing Checker Relationship Specialty Start Date End Date Elsewhere, Pcp PCP - General Family Medicine 08/06/17
--- OUTSIDE RECORDS SUMMARY | 2023-08-13 09:59 | XMS_ITS | Encounter Summary ---
Author Name Unknown Organization [facility] Address [address] [place] [address] Care Team Providers Care Observer Electrical Prospecting Name Role Phone Elsewhere, Pcp Primary Care Provider Unavailabl e Reason for Referral * Outpatient (Routine) - Closed Specialty Diagnoses / Procedures Referred By Clary pacheco Referred To Contact Diagnoses 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 Procedures US Lower Extremity Venous Insufficiency Bilateral Cuco Brown P.A.-C. [address] [place] [address] [facility] Region Referral ID Status Reason Start Date Expiration Date Visits Re quested Visits Authorized [id number] Closed 07/11/2023 07/10/2024 1 1 Reason for Visit * Outpatient (Routine) - Closed Specialty Diagnoses / Procedures Referred By Clary pacheco Referred To Contact Diagnoses 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 Procedures US Lower Extremity Venous Insufficiency Bilateral Cuco Brown P.A.-C. [address] [place] [address] [facility] Region Referral ID Status Reason Start Date Expiration Date Visits Re quested Visits Authorized [id number] Closed 07/11/2023 07/10/2024 1 1 Encounter Details Date Type Department Care Team (Latest Contact Info) Description 07/30/2023 2:45 PM CDT - 07/30/2023 11:59 PM CDT Hospital Encounter Department of Radiology in [place], [place] [address] [place] [address] Cuco Brown P.A.-C. [address] [place] [address] Varicose Veins Of Bilateral Lower [...] of the anterior accessory saphenous vein. A target setter vein is present off the posterior tibial vein. LEFT: Status post endovascular venous laser ablation of the great saphenous vein in 2017. 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 Varicosities arise off the anterior accessory saphenous vein in the upper thigh and connected to the remnant great saphenous vein in the calf and knee. A target setter arises off the posterior tibial vein and [...] of the anterior accessory saphenous vein. A target setter vein is present off the posterior tibial vein. LEFT: Status post endovascular venous laser ablation of the great saphenous vein in 2017. 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 Varicosities arise off the anterior accessory saphenous vein in the upper thigh and connected to the remnant great saphenous vein in the calf and knee. A target setter arises off the posterior tibial vein and [...] of the anterior accessory saphenous vein. A target setter veinis present off the posterior tibial vein. LEFT: Status post endovascular venous laser ablation of the greatsaphenous vein in 2017. Severe incompetence of the great saphenous vein inthe knee. Varicosities arise off the anterior accessory saphenous vein inthe upper thigh and connected to the remnant great saphenous vein in the calf and knee. A target setter arises offthe posterior tibial vein and has [...] of the anterior accessory saphenous vein. A target setter veinis present off the posterior tibial vein. LEFT: Status post endovascular venous laser ablation of the greatsaphenous vein in 2017. Severe incompetence of the great saphenous vein inthe knee. Varicosities arise off the anterior accessory saphenous vein inthe upper thigh and connected to the remnant great saphenous vein in the calf and knee. A target setter arises offthe posterior tibial vein and has multiple varicosities, approximately 4cm above a superficial ulcer in the medial left ankle. Cuco Brown P.A.-C. Kasey RODRIGUEZ PROCEDUR ES documented in this encounter Visit Diagnoses Diagnosis 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 documented in this encounter Care Teams Observer Electrical Prospecting Relationship Specialty Start Date End Date Elsewhere, Pcp PCP - General Family Medicine 08/06/17 documented as of this encounter
--- OUTSIDE RECORDS SUMMARY | 2023-08-13 09:59 | XMS_ITS | Data Portability ---
Author Name Unknown Address [address] [place] [address] Phone [phone] Organization [place] [facility] [employer] Address [address] [place] [address] Assessment Encounter Date Assessment Date Assessment LastModified [...] Active 019 Foot joint pain; Original Code: 767021547 Maximino ginal Codesystem: SNOMED CT Classifica tion: Medical Confi rmation Status: Confirmed Not Available [facility] 3 09:13:23 Hypertensive disorder Active 017 Hypertensive disorder; Original Code: [id number] Or iginal Codesystem: SNOMED CT Classifica tion: Medical Confi rmation Status: Confirmed Not Available [facility] 3 09:13:23 Peroneal tendinitis of left lower limb Active 019 Peroneal tendinitis of left lower limb; Original Code: [id number] Or iginal Codesystem: SNOMED CT Classifica tion: Medical Confi rmation Status: Confirmed Not Available [facility] 3 09:13:23 Heart disease Active 017 Heart disease; Original Code: [id number] Orig inal Codesystem: SNOMED CT Classifica tion: Medical Confi rmation Status: Confirmed Not Available [facility] 3 09:13:23 Foot pain Active 017 Foot pain; Original Code: [id number] Maximino ginal Codesystem: SNOMED CT Classifica tion: Medical Confi rmation Status: Confirmed Not Available [facility] 3 09:13:23 Congenital varus deformity of foot Active 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 Procedures Surgical History Date Name Laterality Status Provider Name and Address Organization Details Recorded Time [address] Christianson active Jackie ca [place] [facility] 01/11/2023 14:18:[address] Christianson completed Arvind George, CARLA [address] [place], [address], [facility] 12/28/2022 [...] Diagnosis SNOMED-CT Code [id number] Arvind George DPM [place] Main [facility] [address] [place] [address] 12/28/2022 14:45:58 12/28/2022 16:06:42 Paronychia of toe of right foot [id number] 02 Health Concerns Section Related Observation LastModified by Organization Detai ls LastModified Time None Recorded Concern Status LastModified by Organization Details LastModified Time None Recorded Advance Directives Directive None Recorded Payers Encounter Date Sequence Insurance Name Policy Number Policy Lin Covered Member ID Lin Member ID Guarantor Name 12/28/2022 1 [employer] CHOICE - [facility] - CHOICE PLUS (POS) Robert Charles [id number] Robert Charles Notes Date Note Type Note [...] the right Hallux. Arvind George DPM [address] [place], [address], [facility] 12/28/2022 15:54:14
--- OUTSIDE RECORDS SUMMARY | 2023-08-13 09:59 | XMS_ITS | Encounter Summary ---
Author Name Unknown Organization [facility] Address [address] [place] [address] Care Team Providers Care Statue Maker Name Role Phone Elsewhere, Pcp Primary Care Provider Unavailabl e Encounter Details Date Type Department Care Team (Late st Contact Info) Description 11/07/2017 [facility] [address] [place] [address] Terrell Fernandez M.D. [address] [place] [address] Obesity Unspecified (Primary Dx) Social History Tobacco [...] Primary documented in this encounter Care Teams Statue Maker Relationship Specialty Start Date End Date Elsewhere, Pcp PCP - General Family Medicine 08/06/17 documented as of this encounter
--- OUTSIDE RECORDS SUMMARY | 2023-08-13 09:59 | XMS_ITS | Encounter Summary ---
Author Name Unknown Organization [facility] Address [address] [place] [address] Care Team Providers Care Web Production Manager Name Role Phone Elsewhere, Pcp Primary Care Provider Unavailabl e Encounter Details Date Type Department Care Team (Late st Contact Info) Description 03/25/2018 [facility] [address] [place] [address] Terrell Fernandez M.D. [address] [place] [address] Contracture Dupuytren's (Primary Dx) Social History Tobacco [...] Primary documented in this encounter Care Teams Web Production Manager Relationship Specialty Start Date End Date Elsewhere, Pcp PCP - General Family Medicine 08/06/17 documented as of this encounter
--- OUTSIDE RECORDS SUMMARY | 2023-08-13 09:59 | XMS_ITS | Encounter Summary ---
Author Name Unknown Organization [facility] Address [address] [place] [address] Care Team Providers Care Sanitation Worker Name Role Phone Elsewhere, Pcp Primary Care Provider Unavailabl e Encounter Details Date Type Department Care Team (Late st Contact Info) Description 07/11/2023 2:10 PM DETECTIVE PRIVATE EYE Ancillary Procedure Department of General Surgery Social [...] SURGERY IMAGE EXAM Routine 07/11/2023 2:10 PM DETECTIVE PRIVATE EYE documented in this encounter Results * Leg-General Surgery Image Exam (07/11/2023 2:10 PM DETECTIVE PRIVATE EYE) 07/11/2023 2:10 PM DETECTIVE PRIVATE EYE Narrative IIMS - 07/11/2023 2:12 PM DETECTIVE PRIVATE EYE This order has been created and auto-finalized to support the import of images acquired without order. The clinical documentation to support these images can be found on the encounter that produced images. Provider Not In System IMG NON RAD IMAGI NG PROCEDURES IIMS NA documented in this encounter Visit Diagnoses Not on filedocumented in this encounter Care Teams Sanitation Worker Relationship Specialty Start Date End Date Elsewhere, Pcp PCP - General Family Medicine 08/06/17 documented as of this encounter
--- OUTSIDE RECORDS SUMMARY | 2023-08-13 09:59 | XMS_ITS | Referral Summary ---
Author Name Unknown Organization [facility] Address [address] [place] [address] Care Team Providers Care E Learning Specialist Name Role Phone Elsewhere, Pcp Primary Care Provider Unavailabl e Source Comments Patient records contain information from all sites at [facility]. For routine questions regarding patient records, call [phone] during business hours, M-F 8:00 AM - 5:00 PM Central Time. Record requests for emergency care only can be directed to [phone] at any time.[facility] Encounters Date Type Department Care Team Description 07/30/2023 2:45 PM CDT - 07/30/2023 11:59 PM CDT Hospital Encounter Department of Radiology in [place], [place] [address] [place] [phone] Cuco Brown P.A.-C. 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 Discharge Disposition: Home or Self Care 07/11/2023 2:10 PM HEAD GRINDER Ancillary Procedure Department of General Surgery 07/11/2023 2:00 PM HEAD GRINDER Comprehensive Visit Department of General Surgery in [place], [place] [address] [place] [phone] Cuco Brown P.A.-C. 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 (Primary Dx) 07/02/2023 9:37 PM HEAD GRINDER - 07/02/2023 11:51 PM HEAD GRINDER Emergency [facility] [address] [place] [phone] Varicose Veins Of Right Lower Extremity With [...] SURGERY IMAGE EXAM Routine 07/11/2023 2:10 PM HEAD GRINDER from Last 3 Months Results * US [...] of the anterior accessory saphenous vein. A cargo tank mechanic vein is present off the posterior tibial vein. LEFT: Status post endovascular venous laser ablation of the great saphenous vein in 2017. 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 Varicosities arise off the anterior accessory saphenous vein in the upper thigh and connected to the remnant great saphenous vein in the calf and knee. A cargo tank mechanic arises off the posterior tibial vein and [...] of the anterior accessory saphenous vein. A cargo tank mechanic vein is present off the posterior tibial vein. LEFT: Status post endovascular venous laser ablation of the great saphenous vein in 2017. 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 Varicosities arise off the anterior accessory saphenous vein in the upper thigh and connected to the remnant great saphenous vein in the calf and knee. A cargo tank mechanic arises off the posterior tibial vein and [...] of the anterior accessory saphenous vein. A cargo tank mechanic veinis present off the posterior tibial vein. LEFT: Status post endovascular venous laser ablation of the greatsaphenous vein in 2017. Severe incompetence of the great saphenous vein inthe knee. Varicosities arise off the anterior accessory saphenous vein inthe upper thigh and connected to the remnant great saphenous vein in the calf and knee. A cargo tank mechanic arises offthe posterior tibial vein and has [...] of the anterior accessory saphenous vein. A cargo tank mechanic veinis present off the posterior tibial vein. LEFT: Status post endovascular venous laser ablation of the greatsaphenous vein in 2017. Severe incompetence of the great saphenous vein inthe knee. Varicosities arise off the anterior accessory saphenous vein inthe upper thigh and connected to the remnant great saphenous vein in the calf and knee. A cargo tank mechanic arises offthe posterior tibial vein and has multiple varicosities, approximately 4cm above a superficial ulcer in the medial left ankle. Cuco Brown P.A.-C. IMG US PROCEDUR ES * Leg-General Surgery Image Exam (07/11/2023 2:10 PM HEAD GRINDER) 07/11/2023 2:10 PM HEAD GRINDER Narrative IIMS - 07/11/2023 2:12 PM HEAD GRINDER This order has been created and auto-finalized to support the import of images acquired without order. The clinical documentation to support these images can be found on the encounter that produced images. Provider Not In System IMG NON RAD IMAGI NG PROCEDURES IIMS NA from Last 3 Months Care Teams E Learning Specialist Relationship Specialty Start Date End Date Elsewhere, Pcp PCP - General Family Medicine 08/06/17
--- OUTSIDE RECORDS SUMMARY | 2023-08-13 09:59 | XMS_ITS | Encounter Summary ---
Author Name Unknown Organization [facility] Address [address] [place] [address] Care Team Providers Care Silk Conditioner Name Role Phone Elsewhere, Pcp Primary Care Provider Unavailabl e Reason for Visit * Reason Comments Bleeding/Bruising Encounter Details Date Type Department Care Team (Late st Contact Info) Description 07/02/2023 9:37 PM RECORDING CLERK - 07/02/2023 11:51 PM RECORDING CLERK Emergency [facility] [address] [place] [phone] Varicose Veins Of Right Lower Extremity With [...] Primary documented in this encounter Care Teams Silk Conditioner Relationship Specialty Start Date End Date Elsewhere, Pcp PCP - General Family Medicine 08/06/17 documented as of this encounter
--- OUTSIDE RECORDS SUMMARY | 2023-08-13 09:59 | XMS_ITS | Clinical Summary ---
Author Name Unknown Organization [facility] Address [place], [place] [address] Care Team Providers Care Instrument Lens Grinder Name Role Phone Terrell Fernandez MD Primary Care Provider [phone] Allergies Active Allergy Reactions Criticality Noted Date [...] Department Care Team Description 07/02/2023 9:38 PM SHOULDER PAD MOLDER - 07/02/2023 11:51 PM SHOULDER PAD MOLDER Emergency [facility] [address] [place] [address] Rickie Bailey MD Varicose veins of ankle [...] Comments Blood Pressure 135/85 07/02/2023 11:00 PM SHOULDER PAD MOLDER Pulse 92 07/02/2023 11:00 PM SHOULDER PAD MOLDER Temperature 37.1 ??C (98.7 ??F) 07/02/2023 9:49 PM CS T Respiratory Rate 18 07/02/2023 11:0 0 PM SHOULDER PAD MOLDER Oxygen Saturation 96% 07/02/2023 11: 00 PM SHOULDER PAD MOLDER Inhaled Oxygen Concentration - - Weight 203.8 kg (449 lb 4.8 oz) 07/02/2023 9:49 PM SHOULDER PAD MOLDER Height 190.5 cm (6' 3) 07/02/2023 9:49 PM SHOULDER PAD MOLDER Body Mass Index 56.16 07/02/2023 9:49 PM SHOULDER PAD MOLDER Plan of Treatment Health Maintenance Due Date [...] 7:11 AM 06/02/2012 12:53 PM Care Teams Instrument Lens Grinder Relationship Specialty Start Date End Date Terrell Fernandez MD [address] [place] [address] PCP - General Family Practice 08/11/21
--- OUTSIDE RECORDS SUMMARY | 2023-08-13 09:59 | XMS_ITS ---
Author Name Unknown Organization [facility] Address [address] [place] [address] Care Team Providers Care Medical Biller Coder Name Role Phone Unavailable Unavailable Unavailable Surgery Details Not on file Complications Check Surgery Details section. Procedure Estimated Blood Loss Check Surgery Details section. Procedure Findings Check Surgery Details section. Procedure Specimens Taken Check Surgery Details section.
--- OUTSIDE RECORDS SUMMARY | 2023-08-13 09:59 | XMS_ITS | Encounter Summary ---
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 [address] [place] [address] [facility] Region Referral ID Status Reason Start Date Expiration Date Visits Re quested Visits Authorized [id number] Closed 07/11/2023 07/10/2024 [address] MECHANIC Reason for Visit * Reason Comments Consult Varicose veins * Appointment Request (Routine) - Closed Specialty Diagnoses / Procedures Referred By Contac t Referred To Contact General Surgery Referral ID Status Reason Start Date Expiration Date Visits Re quested Visits Authorized [id number] Closed 07/05/2023 07/04/2024 1 1 Encounter Details Date Type Department Care Team (Latest Contact Info) Description 07/11/2023 2:00 PM KNITTER MECHANIC Comprehensive Visit Department of General Surgery in [place], [place] [address], [place] [address] Cuco Brown P.A.-C. [address], [place] [address] Varicose Veins Of Bilateral Lower Extremity With [...] patient wasadvised of the need to wear [id number] compression stockings for a minimum of 3 months. They understand once the ultrasound is complete, it will be reviewed by Dr. Tobias for consideration of treatment. Additionally, the nursing staff will complete the prior authorization process after which they will receive a phone call to notify them of approval and discuss scheduling the procedure. All of their questions were answered. TER MECHANIC documented in this encounter Plan of Treatment [...] of the anterior accessory saphenous vein. A rag collector vein is present off the posterior tibial vein. LEFT: Status post endovascular venous laser ablation of the great saphenous vein in 2017. 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 Varicosities arise off the anterior accessory saphenous vein in the upper thigh and connected to the remnant great saphenous vein in the calf and knee. A rag collector arises off the posterior tibial vein and [...] of the anterior accessory saphenous vein. A rag collector vein is present off the posterior tibial vein. LEFT: Status post endovascular venous laser ablation of the great saphenous vein in 2017. 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 Varicosities arise off the anterior accessory saphenous vein in the upper thigh and connected to the remnant great saphenous vein in the calf and knee. A rag collector arises off the posterior tibial vein and [...] of the anterior accessory saphenous vein. A rag collector veinis present off the posterior tibial vein. LEFT: Status post endovascular venous laser ablation of the greatsaphenous vein in 2017. Severe incompetence of the great saphenous vein inthe knee. Varicosities arise off the anterior accessory saphenous vein inthe upper thigh and connected to the remnant great saphenous vein in the calf and knee. A rag collector arises offthe posterior tibial vein and has [...] of the anterior accessory saphenous vein. A rag collector veinis present off the posterior tibial vein. LEFT: Status post endovascular venous laser ablation of the greatsaphenous vein in 2017. Severe incompetence of the great saphenous vein inthe knee. Varicosities arise off the anterior accessory saphenous vein inthe upper thigh and connected to the remnant great saphenous vein in the calf and knee. A rag collector arises offthe posterior tibial vein and has multiple varicosities, approximately 4cm above a superficial ulcer in the medial left ankle. 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
== END 2023-08-13 09:57 | disposition home or self-care (01) ==
LOC: WOUND 09:56
PROVIDERS: PCP Family Medicine; Visit Provider Nurse Practitioner Family
DX: I87.312 Chronic venous hypertension (idiopathic) with ulcer of left lower extremity (principal); I87.2 Venous insufficiency (chronic) (peripheral); L97.322 Non-pressure chronic ulcer of left ankle with fat layer exposed
CPT/HCPCS: 11042

== ENCOUNTER 2023-08-16 14:06 | Outpatient (CLI) | payer BC, SELFPAY ==
--- OUTSIDE RECORDS SUMMARY | 2023-08-16 14:08 | XMS_ITS | Clinical Summary ---
Author Name Unknown Organization [facility] Address [place], [place] [address] Care Team Providers Care Bulb Grower Name Role Phone Terrell Fernandez MD Primary Care Provider [phone] Allergies Active Allergy Reactions Criticality Noted Date [...] Department Care Team Description 07/02/2023 9:38 PM RESIDENTIAL HOUSEKEEPER - 07/02/2023 11:51 PM RESIDENTIAL HOUSEKEEPER Emergency [facility] [address] [place] [address] Rickie Bailey MD Varicose veins of ankle [...] Comments Blood Pressure 135/85 07/02/2023 11:00 PM RESIDENTIAL HOUSEKEEPER Pulse 92 07/02/2023 11:00 PM RESIDENTIAL HOUSEKEEPER Temperature 37.1 ??C (98.7 ??F) 07/02/2023 9:49 PM CS T Respiratory Rate 18 07/02/2023 11:0 0 PM RESIDENTIAL HOUSEKEEPER Oxygen Saturation 96% 07/02/2023 11: 00 PM RESIDENTIAL HOUSEKEEPER Inhaled Oxygen Concentration - - Weight 203.8 kg (449 lb 4.8 oz) 07/02/2023 9:49 PM RESIDENTIAL HOUSEKEEPER Height 190.5 cm (6' 3) 07/02/2023 9:49 PM RESIDENTIAL HOUSEKEEPER Body Mass Index 56.16 07/02/2023 9:49 PM RESIDENTIAL HOUSEKEEPER Plan of Treatment Health Maintenance Due Date [...] 7:11 AM 06/02/2012 12:53 PM Care Teams Bulb Grower Relationship Specialty Start Date End Date Terrell Fernandez MD [address] [place] [address] PCP - General Family Practice 08/11/21
--- OUTSIDE RECORDS SUMMARY | 2023-08-16 14:08 | XMS_ITS ---
Author Name Unknown Organization [facility] Address [address] [place] [address] Care Team Providers Care Coding Analyst Name Role Phone Unavailable Unavailable Unavailable Surgery Details Not on file Complications Check Surgery Details section. Procedure Estimated Blood Loss Check Surgery Details section. Procedure Findings Check Surgery Details section. Procedure Specimens Taken Check Surgery Details section.
--- OUTSIDE RECORDS SUMMARY | 2023-08-16 14:08 | XMS_ITS | Encounter Summary ---
Author Name Unknown Organization [facility] Address [address] [place] [address] Care Team Providers Care General Laborer Name Role Phone Elsewhere, Pcp Primary Care Provider Unavailabl e Encounter Details Date Type Department Care Team (Late st Contact Info) Description 07/11/2023 2:10 PM OUTER DIAMETER TECHNICIAN Ancillary Procedure Department of General Surgery Social [...] SURGERY IMAGE EXAM Routine 07/11/2023 2:10 PM OUTER DIAMETER TECHNICIAN documented in this encounter Results * Leg-General Surgery Image Exam (07/11/2023 2:10 PM OUTER DIAMETER TECHNICIAN) 07/11/2023 2:10 PM OUTER DIAMETER TECHNICIAN Narrative IIMS - 07/11/2023 2:12 PM OUTER DIAMETER TECHNICIAN This order has been created and auto-finalized to support the import of images acquired without order. The clinical documentation to support these images can be found on the encounter that produced images. Provider Not In System IMG NON RAD IMAGI NG PROCEDURES IIMS NA documented in this encounter Visit Diagnoses Not on filedocumented in this encounter Care Teams General Laborer Relationship Specialty Start Date End Date Elsewhere, Pcp PCP - General Family Medicine 08/06/17 documented as of this encounter
--- OUTSIDE RECORDS SUMMARY | 2023-08-16 14:08 | XMS_ITS | Encounter Summary ---
Author Name Unknown Organization [facility] Address [address] [place] [address] Care Team Providers Care Back Tender Pulp Drier Name Role Phone Elsewhere, Pcp Primary Care Provider Unavailabl e Encounter Details Date Type Department Care Team (Late st Contact Info) Description 03/25/2018 [facility] [address] [place] [address] Terrell Fernandez M.D. [address] [place] [address] Contracture Dupuytren's (Primary Dx) Social History Tobacco [...] Primary documented in this encounter Care Teams Back Tender Pulp Drier Relationship Specialty Start Date End Date Elsewhere, Pcp PCP - General Family Medicine 08/06/17 documented as of this encounter
--- OUTSIDE RECORDS SUMMARY | 2023-08-16 14:08 | XMS_ITS | Encounter Summary ---
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 [address] [place] [address] [facility] Region Referral ID Status Reason Start Date Expiration Date Visits Re quested Visits Authorized [id number] Closed 07/11/2023 07/10/2024 1 1 Encounter Details Date Type Department Care Team (Latest Contact Info) Description 07/30/2023 2:45 PM CDT - 07/30/2023 11:59 PM CDT Hospital Encounter Department of Radiology in [place], [place] [address] [place] [address] Cuco Brown P.A.-C. [address] [place] [address] Varicose Veins Of Bilateral Lower [...] of the anterior accessory saphenous vein. A solvent mixer vein is present off the posterior tibial vein. LEFT: Status post endovascular venous laser ablation of the great saphenous vein in 2017. 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 Varicosities arise off the anterior accessory saphenous vein in the upper thigh and connected to the remnant great saphenous vein in the calf and knee. A solvent mixer arises off the posterior tibial vein and [...] of the anterior accessory saphenous vein. A solvent mixer vein is present off the posterior tibial vein. LEFT: Status post endovascular venous laser ablation of the great saphenous vein in 2017. 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 Varicosities arise off the anterior accessory saphenous vein in the upper thigh and connected to the remnant great saphenous vein in the calf and knee. A solvent mixer arises off the posterior tibial vein and [...] of the anterior accessory saphenous vein. A solvent mixer veinis present off the posterior tibial vein. LEFT: Status post endovascular venous laser ablation of the greatsaphenous vein in 2017. Severe incompetence of the great saphenous vein inthe knee. Varicosities arise off the anterior accessory saphenous vein inthe upper thigh and connected to the remnant great saphenous vein in the calf and knee. A solvent mixer arises offthe posterior tibial vein and has [...] of the anterior accessory saphenous vein. A solvent mixer veinis present off the posterior tibial vein. LEFT: Status post endovascular venous laser ablation of the greatsaphenous vein in 2017. Severe incompetence of the great saphenous vein inthe knee. Varicosities arise off the anterior accessory saphenous vein inthe upper thigh and connected to the remnant great saphenous vein in the calf and knee. A solvent mixer arises offthe posterior tibial vein and has multiple varicosities, approximately 4cm above a superficial ulcer in the medial left ankle. Cuco Brown P.A.-C. 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
--- OUTSIDE RECORDS SUMMARY | 2023-08-16 14:08 | XMS_ITS | Referral Summary ---
Author Name Unknown Organization [facility] Address [address] [place] [address] Care Team Providers Care Instructional Manager Name Role Phone Elsewhere, Pcp Primary Care Provider Unavailabl e Source Comments Patient records contain information from all sites at [facility]. For routine questions regarding patient records, call [phone] during business hours, M-F 8:00 AM - 5:00 PM Central Time. Record requests for emergency care only can be directed to [phone] at any time.[facility] Encounters Date Type Department Care Team Description 07/30/2023 2:45 PM CDT - 07/30/2023 11:59 PM CDT Hospital Encounter Department of Radiology in [place], [place] [address] [place] [phone] Cuco Brown P.A.-C. 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 A finish specialist vein is present off the posterior tibial vein. LEFT: Status post endovascular venous laser ablation of the great saphenous vein in 2017. 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 Varicosities arise off the anterior accessory saphenous vein in the upper thigh and connected to the remnant great saphenous vein in the calf and knee. A finish specialist arises off the posterior tibial vein and [...] of the anterior accessory saphenous vein. A finish specialist vein is present off the posterior tibial vein. LEFT: Status post endovascular venous laser ablation of the great saphenous vein in 2017. 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 Varicosities arise off the anterior accessory saphenous vein in the upper thigh and connected to the remnant great saphenous vein in the calf and knee. A finish specialist arises off the posterior tibial vein and [...] of the anterior accessory saphenous vein. A finish specialist veinis present off the posterior tibial vein. LEFT: Status post endovascular venous laser ablation of the greatsaphenous vein in 2017. Severe incompetence of the great saphenous vein inthe knee. Varicosities arise off the anterior accessory saphenous vein inthe upper thigh and connected to the remnant great saphenous vein in the calf and knee. A finish specialist arises offthe posterior tibial vein and has [...] of the anterior accessory saphenous vein. A finish specialist veinis present off the posterior tibial vein. LEFT: Status post endovascular venous laser ablation of the greatsaphenous vein in 2017. Severe incompetence of the great saphenous vein inthe knee. Varicosities arise off the anterior accessory saphenous vein inthe upper thigh and connected to the remnant great saphenous vein in the calf and knee. A finish specialist arises offthe posterior tibial vein and has multiple varicosities, approximately 4cm above a superficial ulcer in the medial left ankle. Cuco Brown P.A.-C. IMG US PROCEDUR ES * Leg-General Surgery Image Exam (07/11/2023 2:10 PM DIRECTOR OF SUSTAINABILITY PROGRAMS) 07/11/2023 2:10 PM DIRECTOR OF SUSTAINABILITY PROGRAMS Narrative IIMS - 07/11/2023 2:12 PM DIRECTOR OF SUSTAINABILITY PROGRAMS This order has been created and auto-finalized to support the import of images acquired without order. The clinical documentation to support these images can be found on the encounter that produced images. Provider Not In System IMG NON RAD IMAGI NG PROCEDURES IIMS NA from Last 3 Months Care Teams Instructional Manager Relationship Specialty Start Date End Date Elsewhere, Pcp PCP - General Family Medicine 08/06/17
--- OUTSIDE RECORDS SUMMARY | 2023-08-16 14:08 | XMS_ITS | Data Portability ---
Author Name Unknown Address [address] [place] [address] Phone [phone] Organization [place] [facility] [employer] Address [address] [address] Assessment Encounter Date Assessment Date Assessment LastModified [...] Active 019 Foot joint pain; Original Code: 936171151 Maximino ginal Codesystem: SNOMED CT Classifica tion: Medical Confi rmation Status: Confirmed Not Available [facility] 3 09:13:23 Hypertensive disorder Active 017 Hypertensive disorder; Original Code: [id number] Or iginal Codesystem: SNOMED CT Classifica tion: Medical Confi rmation Status: Confirmed Not Available [facility] 3 09:13:23 Peroneal tendinitis of left lower limb Active 019 Peroneal tendinitis of left lower limb; Original Code: [id number] Or iginal Codesystem: SNOMED CT Classifica tion: Medical Confi rmation Status: Confirmed Not Available [facility] 3 09:13:23 Heart disease Active 017 Heart disease; Original Code: 25921188 Orig inal Codesystem: SNOMED CT Classifica tion: Medical Confi rmation Status: Confirmed Not Available [facility] 3 09:13:23 Foot pain Active 017 Foot pain; Original Code: [id number] Maximino ginal Codesystem: SNOMED CT Classifica tion: Medical Confi rmation Status: Confirmed Not Available [facility] 3 09:13:23 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 Procedures Surgical History Date Name Laterality Status Provider Name and Address Organization Details Recorded Time [address] Christianson active Jackie ca [place] - [facility] 01/11/2023 14:18:[address] Christianson completed Arvind George, CARLA [address] [place], [address], [facility] - [facility] 12/28/2022 [...] Diagnosis SNOMED-CT Code 8361 Arvind George DPM [place] [facility] [address] [place] [address] 12/28/2022 14:45:58 12/28/2022 16:06:42 Paronychia of toe of right foot [id number] 02 Health Concerns Section Related Observation LastModified by Organization Detai ls LastModified Time None Recorded Concern Status LastModified by Organization Details LastModified Time None Recorded Advance Directives Directive None Recorded Payers Encounter Date Sequence Insurance Name Policy Number Policy Lin Covered Member ID Lin Member ID Guarantor Name 12/28/2022 1 [employer] CHO[employer] - [facility] - CHOICE PLUS (POS) Robert Charles [id number] Robert Charles Notes Date Note Type Note [...] the right [place]. Arvind George DPM [address] [place], [address], [facility] - [facility] 12/28/2022 15:54:14
--- OUTSIDE RECORDS SUMMARY | 2023-08-16 14:08 | XMS_ITS | Encounter Summary ---
Author Name Unknown Organization [facility] Address [address] [place] [address] Care Team Providers Care Wrapper Stemmer Hand Name Role Phone Elsewhere, Pcp Primary Care Provider Unavailabl e Reason for Visit * Reason Comments Bleeding/Bruising Encounter Details Date Type Department Care Team (Late st Contact Info) Description 07/02/2023 9:37 PM HEALTH AND SAFETY COORDINATOR - 07/02/2023 11:51 PM HEALTH AND SAFETY COORDINATOR Emergency [facility] [address] [place] [phone] Varicose Veins Of Right Lower Extremity With [...] Primary documented in this encounter Care Teams Wrapper Stemmer Hand Relationship Specialty Start Date End Date Elsewhere, Pcp PCP - General Family Medicine 08/06/17 documented as of this encounter
--- OUTSIDE RECORDS SUMMARY | 2023-08-16 14:08 | XMS_ITS | Encounter Summary ---
Author Name Unknown Organization [facility] Address [address] [place] [address] Care Team Providers Care Fisher Trawl Net Name Role Phone Elsewhere, Pcp Primary Care Provider Unavailabl e Encounter Details Date Type Department Care Team (Late st Contact Info) Description 11/07/2017 [facility] [address] [place] [address] Terrell Fernandez M.D. [address] [place] [address] Obesity Unspecified (Primary Dx) Social History Tobacco [...] Primary documented in this encounter Care Teams Fisher Trawl Net Relationship Specialty Start Date End Date Elsewhere, Pcp PCP - General Family Medicine 08/06/17 documented as of this encounter
--- OUTSIDE RECORDS SUMMARY | 2023-08-16 14:08 | XMS_ITS | Encounter Summary ---
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 [address] [place] [address] [facility] Region Referral ID Status Reason Start Date Expiration Date Visits Re quested Visits Authorized [id number] Closed 07/11/2023 07/10/2024 1 1 ARCH AGRICULTURAL ENGINEER Reason for Visit * Reason Comments Consult Varicose veins * Appointment Request (Routine) - Closed Specialty Diagnoses / Procedures Referred By Contac t Referred To Contact General Surgery Referral ID Status Reason Start Date Expiration Date Visits Re quested Visits Authorized [id number] Closed 07/05/2023 07/04/2024 1 1 Encounter Details Date Type Department Care Team (Latest Contact Info) Description 07/11/2023 2:00 PM RESEARCH AGRICULTURAL ENGINEER Comprehensive Visit Department of General Surgery in [place], [place] [address] [place] [address] Cuco Brown P.A.-C. [address], [place] [address] Varicose Veins Of Bilateral Lower Extremity With [...] patient wasadvised of the need to wear [id number] compression stockings for a minimum of 3 months. They understand once the ultrasound is complete, it will be reviewed by Dr. Tobias for consideration of treatment. Additionally, the nursing staff will complete the prior authorization process after which they will receive a phone call to notify them of approval and discuss scheduling the procedure. All of their questions were answered. ARCH AGRICULTURAL ENGINEER documented in this encounter Plan of Treatment [...] of the anterior accessory saphenous vein. A consultant nurse vein is present off the posterior tibial vein. LEFT: Status post endovascular venous laser ablation of the great saphenous vein in 2017. 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 Varicosities arise off the anterior accessory saphenous vein in the upper thigh and connected to the remnant great saphenous vein in the calf and knee. A consultant nurse arises off the posterior tibial vein and [...] of the anterior accessory saphenous vein. A consultant nurse vein is present off the posterior tibial vein. LEFT: Status post endovascular venous laser ablation of the great saphenous vein in 2017. 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 Varicosities arise off the anterior accessory saphenous vein in the upper thigh and connected to the remnant great saphenous vein in the calf and knee. A consultant nurse arises off the posterior tibial vein and [...] of the anterior accessory saphenous vein. A consultant nurse veinis present off the posterior tibial vein. LEFT: Status post endovascular venous laser ablation of the greatsaphenous vein in 2017. Severe incompetence of the great saphenous vein inthe knee. Varicosities arise off the anterior accessory saphenous vein inthe upper thigh and connected to the remnant great saphenous vein in the calf and knee. A consultant nurse arises offthe posterior tibial vein and has [...] of the anterior accessory saphenous vein. A consultant nurse veinis present off the posterior tibial vein. LEFT: Status post endovascular venous laser ablation of the greatsaphenous vein in 2017. Severe incompetence of the great saphenous vein inthe knee. Varicosities arise off the anterior accessory saphenous vein inthe upper thigh and connected to the remnant great saphenous vein in the calf and knee. A consultant nurse arises offthe posterior tibial vein and has multiple varicosities, approximately 4cm above a superficial ulcer in the medial left ankle. 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
--- OUTSIDE RECORDS SUMMARY | 2023-08-16 14:08 | XMS_ITS | Clinical Summary ---
Author Name Unknown Organization [facility] Address [address] [place] [address] Care Team Providers Care Dumpster Operator Name Role Phone Elsewhere, Pcp Primary Care Provider Unavailabl e Source Comments Patient records contain information from all sites at [facility]. For routine questions regarding patient records, call [phone] during business hours, M-F 8:00 AM - 5:00 PM Central Time. Record requests for emergency care only can be directed to [phone] at any time.[facility] Allergies Active Allergy Reactions Criticality Noted Date [...] CDT Hospital Encounter Department of Radiology in [place], [place] [address], [place] [address] Cuco Brown P.AJorden-C. 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 A dressage judge vein is present off the posterior tibial vein. LEFT: Status post endovascular venous laser ablation of the great saphenous vein in 2017. 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 Varicosities arise off the anterior accessory saphenous vein in the upper thigh and connected to the remnant great saphenous vein in the calf and knee. A dressage judge arises off the posterior tibial vein and [...] of the anterior accessory saphenous vein. A dressage judge vein is present off the posterior tibial vein. LEFT: Status post endovascular venous laser ablation of the great saphenous vein in 2017. 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 Varicosities arise off the anterior accessory saphenous vein in the upper thigh and connected to the remnant great saphenous vein in the calf and knee. A dressage judge arises off the posterior tibial vein and [...] of the anterior accessory saphenous vein. A dressage judge veinis present off the posterior tibial vein. LEFT: Status post endovascular venous laser ablation of the greatsaphenous vein in 2017. Severe incompetence of the great saphenous vein inthe knee. Varicosities arise off the anterior accessory saphenous vein inthe upper thigh and connected to the remnant great saphenous vein in the calf and knee. A dressage judge arises offthe posterior tibial vein and has [...] of the anterior accessory saphenous vein. A dressage judge veinis present off the posterior tibial vein. LEFT: Status post endovascular venous laser ablation of the greatsaphenous vein in 2017. Severe incompetence of the great saphenous vein inthe knee. Varicosities arise off the anterior accessory saphenous vein inthe upper thigh and connected to the remnant great saphenous vein in the calf and knee. A dressage judge arises offthe posterior tibial vein and has multiple varicosities, approximately 4cm above a superficial ulcer in the medial left ankle. Cuco Brown P.A.-C. IMG US PROCEDUR ES * Leg-General Surgery Image Exam (07/11/2023 2:10 PM HOTEL DINING ROOM CASHIER) 07/11/2023 2:10 PM HOTEL DINING ROOM CASHIER Narrative IIMS - 07/11/2023 2:12 PM HOTEL DINING ROOM CASHIER This order has been created and auto-finalized to support the import of images acquired without order. The clinical documentation to support these images can be found on the encounter that produced images. Provider Not In System IMG NON RAD IMAGI NG PROCEDURES IIMS NA from Last 3 Months Care Teams Dumpster Operator Relationship Specialty Start Date End Date Elsewhere, Pcp PCP - General Family Medicine 08/06/17
== END 2023-08-16 14:07 | disposition home or self-care (01) ==
LOC: WOUND 14:06
PROVIDERS: PCP Family Medicine; Visit Provider Nurse Practitioner Family
DX: I87.312 Chronic venous hypertension (idiopathic) with ulcer of left lower extremity (principal); I87.2 Venous insufficiency (chronic) (peripheral); L97.322 Non-pressure chronic ulcer of left ankle with fat layer exposed
CPT/HCPCS: 29581

== ENCOUNTER 2023-08-20 10:00 | Outpatient (CLI) | payer BC, SELFPAY ==
--- OUTSIDE RECORDS SUMMARY | 2023-08-20 10:02 | XMS_ITS | Encounter Summary ---
Author Name Unknown Organization [facility] Address [address] [place] [address] Care Team Providers Care Cnc Cutting Operator Name Role Phone Elsewhere, Pcp Primary Care Provider Unavailabl e Encounter Details Date Type Department Care Team (Late st Contact Info) Description 11/07/2017 [facility] [address] [place] [address] Terrell Fernandez M.D. [address] [place] [address] Obesity Unspecified (Primary Dx) Social History Tobacco [...] Primary documented in this encounter Care Teams Cnc Cutting Operator Relationship Specialty Start Date End Date Elsewhere, Pcp PCP - General Family Medicine 08/06/17 documented as of this encounter
--- OUTSIDE RECORDS SUMMARY | 2023-08-20 10:02 | XMS_ITS | Encounter Summary ---
Author Name Unknown Organization [facility] Address [address] [place] [address] Care Team Providers Care Electric Accounting Machine Operator Name Role Phone Elsewhere, Pcp Primary Care Provider Unavailabl e Encounter Details Date Type Department Care Team (Late st Contact Info) Description 03/25/2018 [facility] [address] [place] [address] Terrell Fernandez M.D. [address] [place] [address] Contracture Dupuytren's (Primary Dx) Social History Tobacco [...] Primary documented in this encounter Care Teams Electric Accounting Machine Operator Relationship Specialty Start Date End Date Elsewhere, Pcp PCP - General Family Medicine 08/06/17 documented as of this encounter
--- OUTSIDE RECORDS SUMMARY | 2023-08-20 10:02 | XMS_ITS | Encounter Summary ---
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 [address] [place] [address] [facility] Region Referral ID Status Reason Start Date Expiration Date Visits Re quested Visits Authorized [id number] Closed 07/11/2023 07/10/2024 1 1 Encounter Details Date Type Department Care Team (Latest Contact Info) Description 07/30/2023 2:45 PM CDT - 07/30/2023 11:59 PM CDT Hospital Encounter Department of Radiology in [place], [place] [address] [place] [address] Cuco Brown P.A.-C. [address] [place] [address] Varicose Veins Of Bilateral Lower [...] tablet Take 300 mg by mouth daily. aspirin [address] tablet Take 1 tablet by mouth daily. 02/08/2017 aspirin, buffered, 325 mg tablet Take 325 mg by mouth daily. losartan (COZAAR) 50 mg tablet Take 50 mg by mouth daily. metoprolol succinate (TOPROL-XL) 50 mg 24 hr tablet Take 50 mg by mouth daily. Do not crush or chew. potassium chloride (K-TAB) 20 mEq CR tablet Take 20 mEq by mouth daily. sildenafil citrate (SILDENAFIL, ANTIHYPERTENSIVE, ORAL) Take 20 mg by mouth daily. tadalafiL (CIALIS) 5 mg tablet Take 1 tablet by mouth daily. 05/22/2023 terazosin (HYTRIN) 1 mg capsule Take 1-2 mg by mouth at bedtime. triamcinolone (KENALOG) 0.1 % ointment Apply 1 application topically 2 (two) times a day. triamterene-hydroCHLORO thiazide (DYAZIDE) 37.5-25 mg per capsule Take 2 capsules by mouth daily. documented as of this encounter Plan of [...] of the anterior accessory saphenous vein. A classroom aide vein is present off the posterior tibial vein. LEFT: Status post endovascular venous laser ablation of the great saphenous vein in 2017. 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 Varicosities arise off the anterior accessory saphenous vein in the upper thigh and connected to the remnant great saphenous vein in the calf and knee. A classroom aide arises off the posterior tibial vein and [...] of the anterior accessory saphenous vein. A classroom aide vein is present off the posterior tibial vein. LEFT: Status post endovascular venous laser ablation of the great saphenous vein in 2017. 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 Varicosities arise off the anterior accessory saphenous vein in the upper thigh and connected to the remnant great saphenous vein in the calf and knee. A classroom aide arises off the posterior tibial vein and [...] of the anterior accessory saphenous vein. A classroom aide veinis present off the posterior tibial vein. LEFT: Status post endovascular venous laser ablation of the greatsaphenous vein in 2017. Severe incompetence of the great saphenous vein inthe knee. Varicosities arise off the anterior accessory saphenous vein inthe upper thigh and connected to the remnant great saphenous vein in the calf and knee. A classroom aide arises offthe posterior tibial vein and has [...] of the anterior accessory saphenous vein. A classroom aide veinis present off the posterior tibial vein. LEFT: Status post endovascular venous laser ablation of the greatsaphenous vein in 2017. Severe incompetence of the great saphenous vein inthe knee. Varicosities arise off the anterior accessory saphenous vein inthe upper thigh and connected to the remnant great saphenous vein in the calf and knee. A classroom aide arises offthe posterior tibial vein and has multiple varicosities, approximately 4cm above a superficial ulcer in the medial left ankle. 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
--- OUTSIDE RECORDS SUMMARY | 2023-08-20 10:02 | XMS_ITS ---
Author Name Unknown Organization [facility] Address [address] [place] [address] Care Team Providers Care Mill Tender Name Role Phone Unavailable Unavailable Unavailable Surgery Details Not on file Complications Check Surgery Details section. Procedure Estimated Blood Loss Check Surgery Details section. Procedure Findings Check Surgery Details section. Procedure Specimens Taken Check Surgery Details section.
--- OUTSIDE RECORDS SUMMARY | 2023-08-20 10:02 | XMS_ITS | Clinical Summary ---
Author Name Unknown Organization [facility] [place] [address] Care Team Providers Care Configuration Management Analyst Name Role Phone Terrell Fernandez MD Primary Care Provider [phone] Allergies Active Allergy Reactions Criticality Noted Date [...] Department Care Team Description 07/02/2023 9:38 PM DONOR TECHNICIAN - 07/02/2023 11:51 PM DONOR TECHNICIAN Emergency [facility] [address] [place] [address] Rickie Bailey MD Varicose veins of ankle [...] Comments Blood Pressure 135/85 07/02/2023 11:00 PM DONOR TECHNICIAN Pulse 92 07/02/2023 11:00 PM DONOR TECHNICIAN Temperature 37.1 ??C (98.7 ??F) 07/02/2023 9:49 PM CS T Respiratory Rate 18 07/02/2023 11:0 0 PM DONOR TECHNICIAN Oxygen Saturation 96% 07/02/2023 11: 00 PM DONOR TECHNICIAN Inhaled Oxygen Concentration - - Weight 203.8 kg (449 lb 4.8 oz) 07/02/2023 9:49 PM DONOR TECHNICIAN Height 190.5 cm (6' 3) 07/02/2023 9:49 PM DONOR TECHNICIAN Body Mass Index 56.16 07/02/2023 9:49 PM DONOR TECHNICIAN Plan of Treatment Health Maintenance Due Date [...] 7:11 AM 06/02/2012 12:53 PM Care Teams Configuration Management Analyst Relationship Specialty Start Date End Date Terrell Fernandez MD [address] [place] [address] PCP - General Family Practice 08/11/21
--- OUTSIDE RECORDS SUMMARY | 2023-08-20 10:02 | XMS_ITS | Encounter Summary ---
Author Name Unknown Organization [facility] Address [address] [place] [address] Care Team Providers Care Early Childhood Services Coordinator Name Role Phone Elsewhere, Pcp Primary Care Provider Unavailabl e Reason for Visit * Reason Comments Bleeding/Bruising Encounter Details Date Type Department Care Team (Late st Contact Info) Description 07/02/2023 9:37 PM CLINICAL SUPPORT ASSOCIATE - 07/02/2023 11:51 PM CLINICAL SUPPORT ASSOCIATE Emergency [facility] [address] [place] [phone] Varicose Veins Of Right Lower Extremity With [...] tablet Take 325 mg by mouth daily. furosemide (LASIX) 20 mg tablet Take 1 tablet (20 mg total) by mouth daily for 10 days. 10 tablet 12/27/2017 losartan (COZAAR) 50 mg tablet Take [...] application topically 2 (two) times a day. triamterene-hydroCHLOR Othiazide (DYAZIDE) 37.5-25 mg per capsule Take 2 capsules by mouth daily. documented as of this encounter Plan of Treatment Not on file documented as of this encounter Visit Diagnoses Diagnosis Varicose Veins Of Right Lower Extremity With Ulcer Of Ankle (HCC)- Primary documented in this encounter Care Teams Early Childhood Services Coordinator Relationship Specialty Start Date End Date Elsewhere, Pcp PCP - General Family Medicine 08/06/17 documented as of this encounter
--- OUTSIDE RECORDS SUMMARY | 2023-08-20 10:02 | XMS_ITS | Encounter Summary ---
Author Name Unknown Organization [facility] Address [address] [place] [address] Care Team Providers Care Title Curator Name Role Phone Elsewhere, Pcp Primary Care Provider Unavailabl e Encounter Details Date Type Department Care Team (Late st Contact Info) Description 07/11/2023 2:10 PM EARLY CHILDHOOD COORDINATOR Ancillary Procedure Department of General Surgery Social [...] SURGERY IMAGE EXAM Routine 07/11/2023 2:10 PM EARLY CHILDHOOD COORDINATOR documented in this encounter Results * Leg-General Surgery Image Exam (07/11/2023 2:10 PM EARLY CHILDHOOD COORDINATOR) 07/11/2023 2:10 PM EARLY CHILDHOOD COORDINATOR Narrative IIMS - 07/11/2023 2:12 PM EARLY CHILDHOOD COORDINATOR This order has been created and auto-finalized to support the import of images acquired without order. The clinical documentation to support these images can be found on the encounter that produced images. Provider Not In System IMG NON RAD IMAGI NG PROCEDURES IIMS NA documented in this encounter Visit Diagnoses Not on filedocumented in this encounter Care Teams Title Curator Relationship Specialty Start Date End Date Elsewhere, Pcp PCP - General Family Medicine 08/06/17 documented as of this encounter
--- OUTSIDE RECORDS SUMMARY | 2023-08-20 10:02 | XMS_ITS | Clinical Summary ---
Author Name Unknown Organization [facility] Address [address] [place] [address] Care Team Providers Care Firearms Expert Name Role Phone Elsewhere, Pcp Primary Care Provider Unavailabl e Source Comments Patient records contain information from all sites at [facility]. For routine questions regarding patient records, call [phone] during business hours, M-F 8:00 AM - 5:00 PM Central Time. Record requests for emergency care only can be directed to [phone] at any time.[facility] Allergies Active Allergy Reactions Criticality Noted Date Comments Amlodipine Myalgia 07/04/2018 Lisinopril Cough 02/07/2018 Losartan Other (see comments) 07/04/2018 Medications Medication Sig Dispensed Refills Start Date End Date Status aspirin, buffered, 325 mg tablet Take 325 mg by mouth daily. Active triamterene-hydroCH LOROthiazide (DYAZIDE) 37.5-25 mg per capsule Take 2 capsules by mouth daily. Active losartan (COZAAR) 50 mg tablet Take 50 mg by mouth daily. Active potassium chloride (K-TAB) 20 mEq CR tablet Take 20 mEq by mouth daily. Active sildenafil citrate (SILDENAFIL, ANTIHYPERTENSIVE, ORAL) Take 20 mg by mouth daily. Active terazosin (HYTRIN) 1 mg capsule Take 1-2 mg by mouth at bedtime. Active metoprolol succinate (TOPROL-XL) 50 mg 24 hr tablet Take 50 mg by mouth daily. Do not crush or chew. Active triamcinolone (KENALOG) 0.1 % ointment Apply 1 application topically 2 (two) times a day. Active furosemide (LASIX) 20 mg tablet Take 1 tablet (20 mg total) by mouth daily for 10 days. 10 tablet 12/27/2017 Active allopurinoL (ZYLOPRIM) 300 mg tablet Take 300 mg by mouth daily. Active tadalafiL (CIALIS) 5 mg tablet Take 1 tablet by mouth daily. 05/22/20[address] Active aspirin [address] tablet Take 1 tablet by mouth daily. 02/08/2017 Active Active Problems Problem Noted Date Diagnosed Date Morbid Obesity Body Mass Ind ex Greater Than Or Equal To 40 Adult 07/25/2015 Overview: Morbid Obesity Body Mass Index (BMI) >40 Adult Hypertension 08/18/2009 Overview: HTN [Hypertension] Encounters Date Type Department Care Team Description 07/30/2023 2:45 PM CDT - 07/30/2023 11:59 PM CDT Hospital Encounter Department of Radiology in [place], [place] [address] [address] Cuco Brown P.A.-C. 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 (Primary Dx) 07/02/2023 9:37 PM SERVICE CENTER REPRESENTATIVE - 07/02/2023 11:51 PM SERVICE CENTER REPRESENTATIVE Emergency [facility] [address] [place] [address] Varicose Veins Of Right Lower Extremity With [...] Cancer Screening 06/02/2021 COVID-19 Vaccine ( - 2022-24 season) 2023 Influenza Vaccine (#1) 2023 Depression [...] SURGERY IMAGE EXAM Routine 07/11/2023 2:10 PM SERVICE CENTER REPRESENTATIVE BASIC METABOLIC PANEL, S/P STAT 12/27/2017 5:11 PM CDT LIPID PANEL, S Routine 01/25/2016 8:48 AM CDT from Last 3 Months or Most Recently Relevant to Health Maintenance Results * US Lower Extremity Venous Insufficiency [...] of the anterior accessory saphenous vein. A block feeder vein is present off the posterior tibial vein. LEFT: Status post endovascular venous laser ablation of the great saphenous vein in 2017. 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 Varicosities arise off the anterior accessory saphenous vein in the upper thigh and connected to the remnant great saphenous vein in the calf and knee. A block feeder arises off the posterior tibial vein and [...] of the anterior accessory saphenous vein. A block feeder vein is present off the posterior tibial vein. LEFT: Status post endovascular venous laser ablation of the great saphenous vein in 2017. 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 Varicosities arise off the anterior accessory saphenous vein in the upper thigh and connected to the remnant great saphenous vein in the calf and knee. A block feeder arises off the posterior tibial vein and [...] of the anterior accessory saphenous vein. A block feeder veinis present off the posterior tibial vein. LEFT: Status post endovascular venous laser ablation of the greatsaphenous vein in 2017. Severe incompetence of the great saphenous vein inthe knee. Varicosities arise off the anterior accessory saphenous vein inthe upper thigh and connected to the remnant great saphenous vein in the calf and knee. A block feeder arises offthe posterior tibial vein and has [...] of the anterior accessory saphenous vein. A block feeder veinis present off the posterior tibial vein. LEFT: Status post endovascular venous laser ablation of the greatsaphenous vein in 2017. Severe incompetence of the great saphenous vein inthe knee. Varicosities arise off the anterior accessory saphenous vein inthe upper thigh and connected to the remnant great saphenous vein in the calf and knee. A block feeder arises offthe posterior tibial vein and has multiple varicosities, approximately 4cm above a superficial ulcer in the medial left ankle. Cuco Brown P.A.-C. IMG US PROCEDUR ES * Leg-General Surgery Image Exam (07/11/2023 2:10 PM SERVICE CENTER REPRESENTATIVE) 07/11/2023 2:10 PM SERVICE CENTER REPRESENTATIVE Narrative IIMS - 07/11/2023 2:12 PM SERVICE CENTER REPRESENTATIVE This order has been created and auto-finalized to support the import of images acquired without order. The clinical documentation to support these images can be found on the encounter that produced images. Provider Not In System IMG NON RAD IMAGI NG PROCEDURES IIMS NA * (ABNORMAL) BMP (Basic Metabolic Panel) (12/27/2017 5:11 PM CDT) Potassium, P 3.5(L) 3.6 - 5.2 mmol/L 12/27/2017 5:36 PM CDT [facility] Sodium, P 140 135 - 145 mmol/L 12/27/2017 5:36 PM CDT [facility] Chloride, P 102 98 - 107 mmol/L 12/27/2017 5:36 PM CDT [facility] Bicarbonate, P 25 22 - 29 mmol/L 12/27/2017 5:36 PM CDT [facility] Anion Gap, P 13 7 - 15 12/27/2017 5:36 PM CDT [facility] BUN (Blood Urea Nitrogen), P 15 8 - 24 mg/dL 12/27/2017 5:36 PM CDT [facility] Creatinine 0.85 0.74 - 1.35 mg/dL 12/27/2017 5:36 PM CDT [facility] eGFR-Black/Afri can Djib[place]ian >90 >=60 mL/min/BSA 12/27/2017 5:36 PM CDT [facility] Comment: ----ADDITIONAL INFORMATION---- Estimated GFR calculated using the 2009 CKD_EPI creatinine equation. eGFR Non-Black/Afric an Djib[place]ian >90 >=60 mL/min/BSA 12/27/2017 5:36 PM CDT [facility] Comment: ----ADDITIONAL INFORMATION---- Estimated GFR calculated using the 2009 CKD_EPI creatinine equation. Calcium, Total, P 9.1 8.6 - 10.0 mg/dL 12/27/2017 5:36 PM CDT [facility] Glucose, P 89 70 - 140 mg/dL 12/27/2017 5:36 PM CDT [facility] Blood (Blood, Venous) 12/27/2017 5:11 PM CDT 12/27/2017 5:16 PM CDT Gabriel Mccracken M.D. LAB BLOOD ADD-ON [facility] [address] * (ABNORMAL) Lipid Panel (01/25/2016 8:48 AM CDT) Calculated LDL 116 <=129 MGDL POWERCHART Comment: 2014 National Lipid Association recommendations for LDL-C in adults ages 18 and up: Desirable <100 mg/dL Above desirable 100-129 mg/dL Borderline high 130-159 mg/dL High 160-189 mg/dL Very High 190 mg/dL 2014 National Lipid Association recommendations for LDL-C in children ages 2 to 17. Acceptable <110 mg/dL Borderline High 110-129mg/dL High 130 mg/dL LDL-C >190mg/dL: The markedly elevated LDL level is suggestive of a genetic condition such as familial hypercholesterolemia(FH) or familial defective apolipoprotein B-100 (FDB). Molecular genetic testing for FH and FDB is available through [facility]: FH/ADH Genetic Reflex Panel (test ADHP). Acquired (non-genetic) causes of markedly increased LDL cholesterol include cholestatic liver disease due to the presence of LpX. If a genetic form of hypercholesterolemia is suspected, family studies including biochemical testing for lipids (total cholesterol,triglycerides, LDL cholesterol and HDL cholesterol) are recommended. ??Please contact the laboratory at or the on-line test catalog at [facility] for information about how to order these tests or to speak with a genetic counselor. Further interpretation would require clinical information. Total Cholesterol/HDL Ratio 4.27 POWERCHART Cholesterol, Total 192 <=199 MGDL POWERCHART Comment: 2014 National Lipid Association recommendations for Total Cholesterol in adults ages 18 and up: Desirable <200 mg/dL Borderline high 200-239 mg/dL High 240 mg/dL 2014 National Lipid Association recommendations for Total Cholesterol in children ages 2 to 17. Acceptable <170 mg/dL Borderline High 170-199 mg/dL High 200 mg/dL HX HDL 45 >=40 MGDL POWERCHART Comment: 2014 National Lipid Association recommendations for HDL-C in adults ages 18 and up: Low <40 mg/dL (Men) Low <50 mg/dL (Women) 2014 National Lipid Association recommendations for HDL-C in children ages 2 to 17. Low <40 mg/dL Borderline Low 40-45 mg/dL Acceptable >45 mg/dL Triglycerides 154(H) <=149 MGDL POWERCHART Comment: 2014 National Lipid Association recommendations for Triglycerides in adults ages 18 and up: Normal <150 mg/dL Borderline High 150-199 mg/dL High 200-499 mg/dL Very High 500 mg/dL 2014 National Lipid Association recommendations for Triglycerides in children ages 2 to 9. Acceptable <75 mg/dL Borderline High 75-99 mg/dL High 100 mg/dL 2014 National Lipid Association recommendations for Triglycerides in children ages 10 to 17. Acceptable <90 mg/dL Borderline High 90-129 mg/dL High 130 mg/dL Trigs >400mg/dL: Triglycerides >400 mg/dL. Calculated LDL cholesterol is not valid. Non-HDL cholesterol may be used for risk assessment when triglycerides are >400mg/dL. HXLDL/HDL 3 POWERCHART Blood 01/25/2016 8:48 AM CDT Sedrick Urias M.D. LAB BLOOD ADD-ON POWERCHART from Last 3 Months or Most Recently Relevant to Health Maintenance Care Teams Firearms Expert Relationship Specialty Start Date End Date Elsewhere, Pcp PCP - General Family Medicine 08/06/17
--- OUTSIDE RECORDS SUMMARY | 2023-08-20 10:02 | XMS_ITS | Encounter Summary ---
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 [address] [place] [address] [facility] Region Referral ID Status Reason Start Date Expiration Date Visits Re quested Visits Authorized [id number] Closed 07/11/2023 07/10/2024 1 1 TROTYPER Reason for Visit * Reason Comments Consult Varicose veins * Appointment Request (Routine) - Closed Specialty Diagnoses / Procedures Referred By Contac t Referred To Contact General Surgery Referral ID Status Reason Start Date Expiration Date Visits Re quested Visits Authorized [id number] Closed 07/05/2023 07/04/2024 1 1 Encounter Details Date Type Department Care Team (Latest Contact Info) Description 07/11/2023 2:00 PM ELECTROTYPER Comprehensive Visit Department of General Surgery in [place], [place] [address] [address] Cuco Brown P.A.-C. [address] [address] Varicose Veins Of Bilateral Lower Extremity With [...] patient wasadvised of the need to wear [id number] compression stockings for a minimum of 3 months. They understand once the ultrasound is complete, it will be reviewed by Dr. Tobias for consideration of treatment. Additionally, the nursing staff will complete the prior authorization process after which they will receive a phone call to notify them of approval and discuss scheduling the procedure. All of their questions were answered. TROTYPER documented in this encounter Plan of Treatment [...] of the anterior accessory saphenous vein. A windows vmware administrator vein is present off the posterior tibial vein. LEFT: Status post endovascular venous laser ablation of the great saphenous vein in 2017. 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 Varicosities arise off the anterior accessory saphenous vein in the upper thigh and connected to the remnant great saphenous vein in the calf and knee. A windows vmware administrator arises off the posterior tibial vein [...] of the anterior accessory saphenous vein. A windows vmware administrator vein is present off the posterior tibial vein. LEFT: Status post endovascular venous laser ablation of the great saphenous vein in 2017. 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 Varicosities arise off the anterior accessory saphenous vein in the upper thigh and connected to the remnant great saphenous vein in the calf and knee. A windows vmware administrator arises off the posterior tibial vein [...] of the anterior accessory saphenous vein. A windows vmware administrator veinis present off the posterior tibial vein. LEFT: Status post endovascular venous laser ablation of the greatsaphenous vein in 2017. Severe incompetence of the great saphenous vein inthe knee. Varicosities arise off the anterior accessory saphenous vein inthe upper thigh and connected to the remnant great saphenous vein in the calf and knee. A windows vmware administrator arises offthe posterior tibial vein and [...] of the anterior accessory saphenous vein. A windows vmware administrator veinis present off the posterior tibial vein. LEFT: Status post endovascular venous laser ablation of the greatsaphenous vein in 2017. Severe incompetence of the great saphenous vein inthe knee. Varicosities arise off the anterior accessory saphenous vein inthe upper thigh and connected to the remnant great saphenous vein in the calf and knee. A windows vmware administrator arises offthe posterior tibial vein and has multiple varicosities, approximately 4cm above a superficial ulcer in the medial left ankle. 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
--- OUTSIDE RECORDS SUMMARY | 2023-08-20 10:02 | XMS_ITS | Data Portability ---
Author Name Unknown Address [address] [place] [address] Phone [phone] Organization [place] [facility], [employer] Address [address] [place] [place] [address] Assessment Encounter Date Assessment Date Assessment LastModified [...] Active 019 Foot joint pain; Original Code: [id number] Maximino ginal Codesystem: SNOMED CT Classifica tion: Medical Confi rmation Status: Confirmed Not Available [facility] 3 09:13:23 Hypertensive disorder Active 017 Hypertensive disorder; Original Code: [id number] Or iginal Codesystem: SNOMED CT Classifica tion: Medical Confi rmation Status: Confirmed Not Available [facility] 3 09:13:23 Peroneal tendinitis of left lower limb Active 019 Peroneal tendinitis of left lower limb; Original Code: [id number] Or iginal Codesystem: SNOMED CT Classifica tion: Medical Confi rmation Status: Confirmed Not Available [facility] 3 09:13:23 Heart disease Active 017 Heart disease; Original Code: [id number] Orig inal Codesystem: SNOMED CT Classifica tion: Medical Confi rmation Status: Confirmed Not Available [facility] 3 09:13:23 Foot pain Active 017 Foot pain; Original Code: [id number] Maximino ginal Codesystem: SNOMED CT Classifica tion: Medical Confi rmation Status: Confirmed Not Available [facility] 3 09:13:23 Congenital varus deformity of foot Active 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 Procedures Surgical History Date Name Laterality Status Provider Name and Address Organization Details Recorded Time [address] Christianson active Jackie ac [place] [facility] 01/11/2023 14:18:[address] Christianson completed Arvind George, CARLA [address] [place], [address], [facility] [...] Diagnosis SNOMED-CT Code 8361 Arvind George DPM [place] [facility] [address] [place] [address] 12/28/2022 14:45:58 12/28/2022 16:06:42 Paronychia of toe of right foot [id number] 02 Health Concerns Section Related Observation LastModified by Organization Detai ls LastModified Time None Recorded Concern Status LastModified by Organization Details LastModified Time None Recorded Advance Directives Directive None Recorded Payers Encounter Date Sequence Insurance Name Policy Number Policy Lin Covered Member ID Lin Member ID Guarantor Name 12/28/2022 1 [employer] CHOICE - [facility] - CHOICE PLUS (POS) Robert Charles [id number] Robert Charles Notes Date Note Type Note [...] the right Hallux. Arvind George DPM [address] [place], [address], [facility] - [facility] 12/28/2022 15:54:14
--- OUTSIDE RECORDS SUMMARY | 2023-08-20 10:02 | XMS_ITS | Referral Summary ---
Author Name Unknown Organization [facility] Address [address] [place] [address] Care Team Providers Care Portal Architect Name Role Phone Elsewhere, Pcp Primary Care Provider Unavailabl e Source Comments Patient records contain information from all sites at [facility]. For routine questions regarding patient records, call [phone] during business hours, M-F 8:00 AM - 5:00 PM Central Time. Record requests for emergency care only can be directed to [phone] at any time.[facility] Encounters Date Type Department Care Team Description 07/30/2023 2:45 PM CDT - 07/30/2023 11:59 PM CDT Hospital Encounter Department of Radiology in [place], [place] [address] [place] [phone] Cuco Brown P.A.-C. 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 A order entry representative vein is present off the posterior tibial vein. LEFT: Status post endovascular venous laser ablation of the great saphenous vein in 2016. 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 Varicosities arise off the anterior accessory saphenous vein in the upper thigh and connected to the remnant great saphenous vein in the calf and knee. A order entry representative arises off the posterior tibial vein and [...] of the anterior accessory saphenous vein. A order entry representative vein is present off the posterior tibial vein. LEFT: Status post endovascular venous laser ablation of the great saphenous vein in 2017. 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 Varicosities arise off the anterior accessory saphenous vein in the upper thigh and connected to the remnant great saphenous vein in the calf and knee. A order entry representative arises off the posterior tibial vein and [...] of the anterior accessory saphenous vein. A order entry representative veinis present off the posterior tibial vein. LEFT: Status post endovascular venous laser ablation of the greatsaphenous vein in 2017. Severe incompetence of the great saphenous vein inthe knee. Varicosities arise off the anterior accessory saphenous vein inthe upper thigh and connected to the remnant great saphenous vein in the calf and knee. A order entry representative arises offthe posterior tibial vein and has [...] of the anterior accessory saphenous vein. A order entry representative veinis present off the posterior tibial vein. LEFT: Status post endovascular venous laser ablation of the greatsaphenous vein in 2017. Severe incompetence of the great saphenous vein inthe knee. Varicosities arise off the anterior accessory saphenous vein inthe upper thigh and connected to the remnant great saphenous vein in the calf and knee. A order entry representative arises offthe posterior tibial vein and has multiple varicosities, approximately 4cm above a superficial ulcer in the medial left ankle. Cuco Brown P.A.-C. IMG US PROCEDUR ES * Leg-General Surgery Image Exam (07/11/2023 2:10 PM BRAILLE TRANSLATOR) 07/11/2023 2:10 PM BRAILLE TRANSLATOR Narrative IIMS - 07/11/2023 2:12 PM BRAILLE TRANSLATOR This order has been created and auto-finalized to support the import of images acquired without order. The clinical documentation to support these images can be found on the encounter that produced images. Provider Not In System IMG NON RAD IMAGI NG PROCEDURES IIVA NA * (ABNORMAL) BMP (Basic Metabolic Panel) (12/27/2017 5:11 PM CDT) Potassium, P 3.5(L) 3.6 - 5.2 mmol/L 12/27/2017 5:36 PM CDT [facility] Sodium, P 140 135 - 145 mmol/L 12/27/2017 5:36 PM CDT [facility] Chloride, P 102 98 - 107 mmol/L 12/27/2017 5:36 PM CDT [facility] Bicarbonate, P 25 22 - 29 mmol/L 12/27/2017 5:36 PM CDT [facility] Anion Gap, P 13 7 - 15 12/27/2017 5:36 PM CDT [facility] BUN (Blood Urea Nitrogen), P 15 8 - 24 mg/dL 12/27/2017 5:36 PM CDT [facility] Creatinine 0.85 0.74 - 1.35 mg/dL 12/27/2017 5:36 PM CDT [facility] eGFR-Black/Afri can Irish >90 >=60 mL/min/BSA 12/27/2017 5:36 PM CDT [facility] Comment: ----ADDITIONAL INFORMATION---- Estimated GFR calculated using the 2009 CKD_EPI creatinine equation. eGFR Non-Black/Afric an Irish >90 >=60 mL/min/BSA 12/27/2017 5:36 PM CDT [facility] Comment: ----ADDITIONAL INFORMATION---- Estimated GFR calculated using the 2009 CKD_EPI creatinine equation. Calcium, Total, P 9.1 8.6 - 10.0 mg/dL 12/27/2017 5:36 PM CDT [facility] Glucose, P 89 70 - 140 mg/dL 12/27/2017 5:36 PM CDT [facility] Blood (Blood, Venous) 12/27/2017 5:11 PM CDT 12/27/2017 5:16 PM CDT Gabriel Mccracken M.D. LAB BLOOD ADD-ON [facility] [address] [place], [place] [id number] [place] [address] * (ABNORMAL) Lipid Panel (01/25/2016 8:48 AM [...] for FH and FDB is available through [place] [facility]: FH/ADH Genetic Reflex Panel (test ADHP). Acquired (non-genetic) causes of markedly increased LDL cholesterol include cholestatic liver disease due to the presence of LpX. If a genetic form of hypercholesterolemia is suspected, family studies including biochemical testing for lipids (total cholesterol,triglycerides, LDL cholesterol and HDL cholesterol) are recommended. ??Please contact the laboratory at or the on-line test catalog at [employer] for information about how to order these [...] Recently Relevant to Health Maintenance Care Teams Portal Architect Relationship Specialty Start Date End Date Elsewhere, Pcp PCP - General Family Medicine 08/06/17
== END 2023-08-20 10:01 | disposition home or self-care (01) ==
LOC: WOUND 10:00
PROVIDERS: PCP Family Medicine; Visit Provider Nurse Practitioner Family
DX: I87.312 Chronic venous hypertension (idiopathic) with ulcer of left lower extremity (principal); I87.2 Venous insufficiency (chronic) (peripheral); L97.322 Non-pressure chronic ulcer of left ankle with fat layer exposed; I89.0 Lymphedema, not elsewhere classified
CPT/HCPCS: 97597

== ENCOUNTER 2023-08-27 09:54 | Outpatient (CLI) | payer BC, SELFPAY ==
--- OUTSIDE RECORDS SUMMARY | 2023-08-27 09:56 | XMS_ITS | Encounter Summary ---
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 [address] [place] [phone] [facility] Region Referral ID Status Reason Start Date Expiration Date Visits Re quested Visits Authorized [id number] Closed 07/11/2023 07/10/2024 1 1 Encounter Details Date Type Department Care Team (Latest Contact Info) Description 07/30/2023 2:45 PM CDT - 07/30/2023 11:59 PM CDT Hospital Encounter Department of Radiology in [place], [place] [address] [place] [address] Cuco Brown P.A.-C. [address] [place] [address] Varicose Veins Of Bilateral Lower [...] of the anterior accessory saphenous vein. A clam grower vein is present off the posterior tibial vein. LEFT: Status post endovascular venous laser ablation of the great saphenous vein in 2017. 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 Varicosities arise off the anterior accessory saphenous vein in the upper thigh and connected to the remnant great saphenous vein in the calf and knee. A clam grower arises off the posterior tibial vein and [...] of the anterior accessory saphenous vein. A clam grower vein is present off the posterior tibial vein. LEFT: Status post endovascular venous laser ablation of the great saphenous vein in 2017. 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 Varicosities arise off the anterior accessory saphenous vein in the upper thigh and connected to the remnant great saphenous vein in the calf and knee. A clam grower arises off the posterior tibial vein and [...] of the anterior accessory saphenous vein. A clam grower veinis present off the posterior tibial vein. LEFT: Status post endovascular venous laser ablation of the greatsaphenous vein in 2017. Severe incompetence of the great saphenous vein inthe knee. Varicosities arise off the anterior accessory saphenous vein inthe upper thigh and connected to the remnant great saphenous vein in the calf and knee. A clam grower arises offthe posterior tibial vein and has [...] of the anterior accessory saphenous vein. A clam grower veinis present off the posterior tibial vein. LEFT: Status post endovascular venous laser ablation of the greatsaphenous vein in 2017. Severe incompetence of the great saphenous vein inthe knee. Varicosities arise off the anterior accessory saphenous vein inthe upper thigh and connected to the remnant great saphenous vein in the calf and knee. A clam grower arises offthe posterior tibial vein and has multiple varicosities, approximately 4cm above a superficial ulcer in the medial left ankle. 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
--- OUTSIDE RECORDS SUMMARY | 2023-08-27 09:56 | XMS_ITS | Clinical Summary ---
Author Name Unknown Organization [facility] Address [address] [place] [address] Care Team Providers Care Craft Superintendent Name Role Phone Elsewhere, Pcp Primary Care Provider Unavailabl e Source Comments Patient records contain information from all sites at [facility]. For routine questions regarding patient records, call [phone] during business hours, M-F 8:00 AM - 5:00 PM Central Time. Record requests for emergency care only can be directed to [phone] at any time.[facility] Allergies Active Allergy Reactions Criticality Noted [...] CDT Hospital Encounter Department of Radiology in [place], [place] [address] [address] Cuco Brown P.A.-C. 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 A chief risk officer vein is present off the posterior tibial vein. LEFT: Status post endovascular venous laser ablation of the great saphenous vein in 2017. 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 Varicosities arise off the anterior accessory saphenous vein in the upper thigh and connected to the remnant great saphenous vein in the calf and knee. A chief risk officer arises off the posterior tibial vein and [...] of the anterior accessory saphenous vein. A chief risk officer vein is present off the posterior tibial vein. LEFT: Status post endovascular venous laser ablation of the great saphenous vein in 2017. 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 Varicosities arise off the anterior accessory saphenous vein in the upper thigh and connected to the remnant great saphenous vein in the calf and knee. A chief risk officer arises off the posterior tibial vein and [...] of the anterior accessory saphenous vein. A chief risk officer veinis present off the posterior tibial vein. LEFT: Status post endovascular venous laser ablation of the greatsaphenous vein in 2017. Severe incompetence of the great saphenous vein inthe knee. Varicosities arise off the anterior accessory saphenous vein inthe upper thigh and connected to the remnant great saphenous vein in the calf and knee. A chief risk officer arises offthe posterior tibial vein and has [...] of the anterior accessory saphenous vein. A chief risk officer veinis present off the posterior tibial vein. LEFT: Status post endovascular venous laser ablation of the greatsaphenous vein in 2017. Severe incompetence of the great saphenous vein inthe knee. Varicosities arise off the anterior accessory saphenous vein inthe upper thigh and connected to the remnant great saphenous vein in the calf and knee. A chief risk officer arises offthe posterior tibial vein and has multiple varicosities, approximately 4cm above a superficial ulcer in the medial left ankle. Cuco Brown P.A.-C. IMG US PROCEDUR ES * Leg-General Surgery Image Exam (07/11/2023 2:10 PM ANALYTICAL TECH) 07/11/2023 2:10 PM ANALYTICAL TECH Narrative IIMS - 07/11/2023 2:12 PM ANALYTICAL TECH This order has been created and auto-finalized [...] - 5.2 mmol/L 12/27/2017 5:36 PM CDT [facility] Sodium, P 140 135 - 145 mmol/L 12/27/2017 5:36 PM CDT [facility] Chloride, P 102 98 - 107 mmol/L 12/27/2017 5:36 PM CDT [facility] Bicarbonate, P 25 22 - 29 mmol/L 12/27/2017 5:36 PM CDT [facility] Anion Gap, P 13 7 - 15 12/27/2017 5:36 PM CDT [facility] BUN (Blood Urea Nitrogen), P 15 8 - 24 mg/dL 12/27/2017 5:36 PM CDT [facility] Creatinine 0.85 0.74 - 1.35 mg/dL 12/27/2017 5:36 PM CDT [facility] eGFR-Black/Afri can German >90 >=60 mL/min/BSA 12/27/2017 5:36 PM CDT [facility] Comment: ----ADDITIONAL INFORMATION---- Estimated GFR calculated using the 2009 CKD_EPI creatinine equation. eGFR Non-Black/Afric an German >90 >=60 mL/min/BSA 12/27/2017 5:36 PM CDT [facility] Comment: ----ADDITIONAL INFORMATION---- Estimated GFR calculated using the 2009 CKD_EPI creatinine equation. Calcium, Total, P 9.1 8.6 - 10.0 mg/dL 12/27/2017 5:36 PM CDT [facility] Glucose, P 89 70 - 140 mg/dL 12/27/2017 5:36 PM CDT [facility] Blood (Blood, Venous) 12/27/2017 5:11 PM CDT 12/27/2017 5:16 PM CDT Gabriel Mccracken M.D. LAB BLOOD ADD-ON [facility] [address] * (ABNORMAL) Lipid Panel (01/25/2016 8:48 [...] for FH and FDB is available through [employer]: FH/ADH Genetic Reflex Panel (test ADHP). Acquired (non-genetic) causes of markedly increased LDL cholesterol include cholestatic liver disease due to the presence of LpX. If a genetic form of hypercholesterolemia is suspected, family studies including biochemical testing for lipids (total cholesterol,triglycerides, LDL cholesterol and HDL cholesterol) are recommended. ??Please contact the laboratory at or the on-line test catalog at [employer] for information about how to order these [...] Recently Relevant to Health Maintenance Care Teams Craft Superintendent Relationship Specialty Start Date End Date Elsewhere, Pcp PCP - General Family Medicine 08/06/17
--- OUTSIDE RECORDS SUMMARY | 2023-08-27 09:56 | XMS_ITS | Referral Summary ---
Author Name Unknown Organization [facility] Address [address] [place] [address] Care Team Providers Care Radiosonde Specialist Name Role Phone Elsewhere, Pcp Primary Care Provider Unavailabl e Source Comments Patient records contain information from all sites at [facility]. For routine questions regarding patient records, call [phone] during business hours, M-F 8:00 AM - 5:00 PM Central Time. Record requests for emergency care only can be directed to [phone] at any time.[facility] Encounters Date Type Department Care Team Description 07/30/2023 2:45 PM CDT - 07/30/2023 11:59 PM CDT Hospital Encounter Department of Radiology in [place], [place] [address] [place] [phone] Cuco Brown P.A.-C. 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 A airplane cabin attendant vein is present off the posterior tibial vein. LEFT: Status post endovascular venous laser ablation of the great saphenous vein in 2016. 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 Varicosities arise off the anterior accessory saphenous vein in the upper thigh and connected to the remnant great saphenous vein in the calf and knee. A airplane cabin attendant arises off the posterior tibial vein and [...] of the anterior accessory saphenous vein. A airplane cabin attendant vein is present off the posterior tibial vein. LEFT: Status post endovascular venous laser ablation of the great saphenous vein in 2017. 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 Varicosities arise off the anterior accessory saphenous vein in the upper thigh and connected to the remnant great saphenous vein in the calf and knee. A airplane cabin attendant arises off the posterior tibial vein and [...] of the anterior accessory saphenous vein. A airplane cabin attendant veinis present off the posterior tibial vein. LEFT: Status post endovascular venous laser ablation of the greatsaphenous vein in 2017. Severe incompetence of the great saphenous vein inthe knee. Varicosities arise off the anterior accessory saphenous vein inthe upper thigh and connected to the remnant great saphenous vein in the calf and knee. A airplane cabin attendant arises offthe posterior tibial vein and has [...] of the anterior accessory saphenous vein. A airplane cabin attendant veinis present off the posterior tibial vein. LEFT: Status post endovascular venous laser ablation of the greatsaphenous vein in 2017. Severe incompetence of the great saphenous vein inthe knee. Varicosities arise off the anterior accessory saphenous vein inthe upper thigh and connected to the remnant great saphenous vein in the calf and knee. A airplane cabin attendant arises offthe posterior tibial vein and has multiple varicosities, approximately 4cm above a superficial ulcer in the medial left ankle. Cuco Brown P.A.-C. IMG US PROCEDUR ES * Leg-General Surgery Image Exam (07/11/2023 2:10 PM EMPLOYEE OPERATIONS EXAMINER) 07/11/2023 2:10 PM EMPLOYEE OPERATIONS EXAMINER Narrative IIMS - 07/11/2023 2:12 PM EMPLOYEE OPERATIONS EXAMINER This order has been created and auto-finalized to support the import of images acquired without order. The clinical documentation to support these images can be found on the encounter that produced images. Provider Not In System IMG NON RAD IMAGI NG PROCEDURES IIAL NA * (ABNORMAL) BMP (Basic Metabolic Panel) (12/27/2017 5:11 PM CDT) Potassium, P 3.5(L) 3.6 - 5.2 mmol/L 12/27/2017 5:36 PM CDT [facility] Sodium, P 140 135 - 145 mmol/L 12/27/2017 5:36 PM CDT [facility] Chloride, P 102 98 - 107 mmol/L 12/27/2017 5:36 PM CDT [facility] Bicarbonate, P 25 22 - 29 mmol/L 12/27/2017 5:36 PM CDT [facility] Anion Gap, P 13 7 - 15 12/27/2017 5:36 PM CDT [facility] BUN (Blood Urea Nitrogen), P 15 8 - 24 mg/dL 12/27/2017 5:36 PM CDT [facility] Creatinine 0.85 0.74 - 1.35 mg/dL 12/27/2017 5:36 PM CDT [facility] eGFR-Black/Afri can Nigerian >90 >=60 mL/min/BSA 12/27/2017 5:36 PM CDT [facility] Comment: ----ADDITIONAL INFORMATION---- Estimated GFR calculated using the 2009 CKD_EPI creatinine equation. eGFR Non-Black/Afric an Nigerian >90 >=60 mL/min/BSA 12/27/2017 5:36 PM CDT [facility] Comment: ----ADDITIONAL INFORMATION---- Estimated GFR calculated using the 2009 CKD_EPI creatinine equation. Calcium, Total, P 9.1 8.6 - 10.0 mg/dL 12/27/2017 5:36 PM CDT [facility] Glucose, P 89 70 - 140 mg/dL 12/27/2017 5:36 PM CDT [facility] Blood (Blood, Venous) 12/27/2017 5:11 PM CDT 12/27/2017 5:16 PM CDT Gabriel Mccracken M.D. LAB BLOOD ADD-ON [facility] [address] [place], [place] [id number] [place] [address] * (ABNORMAL) Lipid Panel (01/25/2016 8:48 AM [...] for FH and FDB is available through [facility]: FH/ADH Genetic Reflex Panel (test ADHP). Acquired (non-genetic) causes of markedly increased LDL cholesterol include cholestatic liver disease due to the presence of LpX. If a genetic form of hypercholesterolemia is suspected, family studies including biochemical testing for lipids (total cholesterol,triglycerides, LDL cholesterol and HDL cholesterol) are recommended. ??Please contact the laboratory at or the on-line test catalog at [employer] for information about how to order these [...] Recently Relevant to Health Maintenance Care Teams Radiosonde Specialist Relationship Specialty Start Date End Date Elsewhere, Pcp PCP - General Family Medicine 08/06/17
--- OUTSIDE RECORDS SUMMARY | 2023-08-27 09:56 | XMS_ITS ---
Author Name Unknown Organization [facility] Address [address] [place] [address] Care Team Providers Care Torpedo Worker Name Role Phone Unavailable Unavailable Unavailable Surgery Details Not on file Complications Check Surgery Details section. Procedure Estimated Blood Loss Check Surgery Details section. Procedure Findings Check Surgery Details section. Procedure Specimens Taken Check Surgery Details section.
--- OUTSIDE RECORDS SUMMARY | 2023-08-27 09:57 | XMS_ITS | Encounter Summary ---
Author Name Unknown Organization [facility] Address [address] [place] [address] Care Team Providers Care Continuing Education Instructor Name Role Phone Elsewhere, Pcp Primary Care Provider Unavailabl e Encounter Details Date Type Department Care Team (Late st Contact Info) Description 11/07/2017 [facility] [address] [place] [address] Terrell Fernandez M.D. [address] [place] [address] Obesity Unspecified (Primary Dx) Social History Tobacco [...] Primary documented in this encounter Care Teams Continuing Education Instructor Relationship Specialty Start Date End Date Elsewhere, Pcp PCP - General Family Medicine 08/06/17 documented as of this encounter
--- OUTSIDE RECORDS SUMMARY | 2023-08-27 09:57 | XMS_ITS | Encounter Summary ---
Author Name Unknown Organization [facility] Address [address] [place] [address] Care Team Providers Care Automobile Rental Clerk Name Role Phone Elsewhere, Pcp Primary Care Provider Unavailabl e Encounter Details Date Type Department Care Team (Late st Contact Info) Description 07/11/2023 2:10 PM MERIT SYSTEM DIRECTOR Ancillary Procedure Department of General Surgery Social [...] SURGERY IMAGE EXAM Routine 07/11/2023 2:10 PM MERIT SYSTEM DIRECTOR documented in this encounter Results * Leg-General Surgery Image Exam (07/11/2023 2:10 PM MERIT SYSTEM DIRECTOR) 07/11/2023 2:10 PM MERIT SYSTEM DIRECTOR Narrative IIMS - 07/11/2023 2:12 PM MERIT SYSTEM DIRECTOR This order has been created and auto-finalized to support the import of images acquired without order. The clinical documentation to support these images can be found on the encounter that produced images. Provider Not In System IMG NON RAD IMAGI NG PROCEDURES IIMS NA documented in this encounter Visit Diagnoses Not on filedocumented in this encounter Care Teams Automobile Rental Clerk Relationship Specialty Start Date End Date Elsewhere, Pcp PCP - General Family Medicine 08/06/17 documented as of this encounter
--- OUTSIDE RECORDS SUMMARY | 2023-08-27 09:57 | XMS_ITS | Clinical Summary ---
Author Name Unknown Organization [facility] Address [place], [place] [address] Care Team Providers Care Funeral Counselor Name Role Phone Terrell Fernandez MD Primary Care Provider [phone] Allergies Active Allergy Reactions Criticality Noted Date [...] Department Care Team Description 07/02/2023 9:38 PM CELL LEAD - 07/02/2023 11:51 PM CELL LEAD Emergency [facility] [address] [place] [address] Rickie Bailey MD Varicose veins of ankle [...] Comments Blood Pressure 135/85 07/02/2023 11:00 PM CELL LEAD Pulse 92 07/02/2023 11:00 PM CELL LEAD Temperature 37.1 ??C (98.7 ??F) 07/02/2023 9:49 PM CS T Respiratory Rate 18 07/02/2023 11:0 0 PM CELL LEAD Oxygen Saturation 96% 07/02/2023 11: 00 PM CELL LEAD Inhaled Oxygen Concentration - - Weight 203.8 kg (449 lb 4.8 oz) 07/02/2023 9:49 PM CELL LEAD Height 190.5 cm (6' 3) 07/02/2023 9:49 PM CELL LEAD Body Mass Index 56.16 07/02/2023 9:49 PM CELL LEAD Plan of Treatment Health Maintenance Due Date [...] 7:11 AM 06/02/2012 12:53 PM Care Teams Funeral Counselor Relationship Specialty Start Date End Date Terrell Fernandez MD [address] [place] [address] PCP - General Family Practice 08/11/21
--- OUTSIDE RECORDS SUMMARY | 2023-08-27 09:57 | XMS_ITS | Encounter Summary ---
Author Name Unknown Organization [facility] Address [address] [place] [address] Care Team Providers Care Account Executive Name Role Phone Elsewhere, Pcp Primary Care Provider Unavailabl e Reason for Visit * Reason Comments Bleeding/Bruising Encounter Details Date Type Department Care Team (Late st Contact Info) Description 07/02/2023 9:37 PM STORM CHASER - 07/02/2023 11:51 PM STORM CHASER Emergency [facility] [address] [place] [phone] Varicose Veins Of Right Lower Extremity With [...] Primary documented in this encounter Care Teams Account Executive Relationship Specialty Start Date End Date Elsewhere, Pcp PCP - General Family Medicine 08/06/17 documented as of this encounter
--- OUTSIDE RECORDS SUMMARY | 2023-08-27 09:57 | XMS_ITS | Encounter Summary ---
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 [address] [place] [address] [facility] Region Referral ID Status Reason Start Date Expiration Date Visits Re quested Visits Authorized [id number] Closed 07/11/2023 07/10/2024 1 1 ISH THINNER Reason for Visit * Reason Comments Consult Varicose veins * Appointment Request (Routine) - Closed Specialty Diagnoses / Procedures Referred By Contac t Referred To Contact General Surgery Referral ID Status Reason Start Date Expiration Date Visits Re quested Visits Authorized [id number] Closed 07/05/2023 07/04/2024 1 1 Encounter Details Date Type Department Care Team (Latest Contact Info) Description 07/11/2023 2:00 PM VARNISH THINNER Comprehensive Visit Department of General Surgery in [place], [place] [address], [place] [address] Cuco Brown P.A.-C. [address] [address] Varicose Veins Of Bilateral Lower Extremity With [...] patient wasadvised of the need to wear ybbe-new-[id number] compression stockings for a minimum of 3 months. They understand once the ultrasound is complete, it will be reviewed by Dr. Tobias for consideration of treatment. Additionally, the nursing staff will complete the prior authorization process after which they will receive a phone call to notify them of approval and discuss scheduling the procedure. All of their questions were answered. ISH THINNER documented in this encounter Plan of Treatment [...] of the anterior accessory saphenous vein. A lead java software engineer vein is present off the posterior tibial vein. LEFT: Status post endovascular venous laser ablation of the great saphenous vein in 2017. 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 Varicosities arise off the anterior accessory saphenous vein in the upper thigh and connected to the remnant great saphenous vein in the calf and knee. A lead java software engineer arises off the posterior tibial vein and [...] of the anterior accessory saphenous vein. A lead java software engineer vein is present off the posterior tibial vein. LEFT: Status post endovascular venous laser ablation of the great saphenous vein in 2017. 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 Varicosities arise off the anterior accessory saphenous vein in the upper thigh and connected to the remnant great saphenous vein in the calf and knee. A lead java software engineer arises off the posterior tibial vein and [...] of the anterior accessory saphenous vein. A lead java software engineer veinis present off the posterior tibial vein. LEFT: Status post endovascular venous laser ablation of the greatsaphenous vein in 2017. Severe incompetence of the great saphenous vein inthe knee. Varicosities arise off the anterior accessory saphenous vein inthe upper thigh and connected to the remnant great saphenous vein in the calf and knee. A lead java software engineer arises offthe posterior tibial vein and has [...] of the anterior accessory saphenous vein. A lead java software engineer veinis present off the posterior tibial vein. LEFT: Status post endovascular venous laser ablation of the greatsaphenous vein in 2017. Severe incompetence of the great saphenous vein inthe knee. Varicosities arise off the anterior accessory saphenous vein inthe upper thigh and connected to the remnant great saphenous vein in the calf and knee. A lead java software engineer arises offthe posterior tibial vein and has multiple varicosities, approximately 4cm above a superficial ulcer in the medial left ankle. 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
--- OUTSIDE RECORDS SUMMARY | 2023-08-27 09:57 | XMS_ITS | Data Portability ---
Author Name Unknown Address [address] [place] [address] Phone [phone] Organization ID - [facility] [employer] Address [address] [id number] Assessment Encounter Date Assessment Date Assessment LastModified [...] Active 019 Foot joint pain; Original Code: [id number] Maximino ginal Codesystem: SNOMED CT Classifica tion: Medical Confi rmation Status: Confirmed Not Available [facility] 3 09:13:23 Hypertensive disorder Active 017 Hypertensive disorder; Original Code: [id number] Or iginal Codesystem: SNOMED CT Classifica tion: Medical Confi rmation Status: Confirmed Not Available [facility] 3 09:13:23 Peroneal tendinitis of left lower limb Active 019 Peroneal tendinitis of left lower limb; Original Code: [id number] Or iginal Codesystem: SNOMED CT Classifica tion: Medical Confi rmation Status: Confirmed Not Available [facility] 3 09:13:23 Heart disease Active 017 Heart disease; Original Code: [id number] Orig inal Codesystem: SNOMED CT Classifica tion: Medical Confi rmation Status: Confirmed Not Available [facility] 3 09:13:23 Foot pain Active 017 Foot pain; Original Code: [id number] Maximino ginal Codesystem: SNOMED CT Classifica tion: Medical Confi rmation Status: Confirmed Not Available [facility] 3 09:13:23 Congenital varus deformity of foot Active 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 Procedures Surgical History Date Name Laterality Status Provider Name and Address Organization Details Recorded Time [address] Christianson active Jackie ca ID - [facility] 01/11/2023 14:18:[address] Christianson completed Arvind George, CARLA [address] [place], [address], [facility] - [...] Diagnosis SNOMED-CT Code 8361 Arvind George DPM [place] [facility] [address] [place] [address] 12/28/2022 14:45:58 12/28/2022 16:06:42 Paronychia of toe of right foot [id number] 02 Health Concerns Section Related Observation LastModified by Organization Detai ls LastModified Time None Recorded Concern Status LastModified by Organization Details LastModified Time None Recorded Advance Directives Directive None Recorded Payers Encounter Date Sequence Insurance Name Policy Number Policy Lin Covered Member ID Lin Member ID Guarantor Name 12/28/2022 1 MED[employer] CHOICE - [facility] - CHOICE PLUS (POS) Robert Charles [id number] Robert Charles Notes Date Note Type Note [...] the right Hallux. Arvind George DPM [address] [place], [address], [facility] - [facility] 12/28/2022 15:54:14
--- OUTSIDE RECORDS SUMMARY | 2023-08-27 09:57 | XMS_ITS | Encounter Summary ---
Author Name Unknown Organization [facility] Address [address] [place] [address] Care Team Providers Care Dog Beautician Name Role Phone Elsewhere, Pcp Primary Care Provider Unavailabl e Encounter Details Date Type Department Care Team (Late st Contact Info) Description 03/25/2018 [facility] [address] [place] [address] Terrell Fernandez M.D. [address] [place] [address] Contracture Dupuytren's (Primary Dx) Social History Tobacco [...] Primary documented in this encounter Care Teams Dog Beautician Relationship Specialty Start Date End Date Elsewhere, Pcp PCP - General Family Medicine 08/06/17 documented as of this encounter
== END 2023-08-27 09:55 | disposition home or self-care (01) ==
LOC: WOUND 09:54
PROVIDERS: PCP Family Medicine; Visit Provider Nurse Practitioner Family
DX: I87.312 Chronic venous hypertension (idiopathic) with ulcer of left lower extremity (principal); I87.2 Venous insufficiency (chronic) (peripheral); L97.322 Non-pressure chronic ulcer of left ankle with fat layer exposed; I89.0 Lymphedema, not elsewhere classified
CPT/HCPCS: 11042

== ENCOUNTER 2023-09-03 09:55 | Outpatient (CLI) | payer BC, SELFPAY ==
--- OUTSIDE RECORDS SUMMARY | 2023-09-03 09:57 | XMS_ITS | Clinical Summary ---
Author Name Unknown Organization [facility] Address [place], [place] [address] Care Team Providers Care Deposit Refund Clerk Name Role Phone Terrell Fernandez MD Primary Care Provider [phone] Allergies Active Allergy Reactions Criticality Noted Date [...] Department Care Team Description 07/02/2023 9:38 PM SALESPERSON SURGICAL APPLIANCES - 07/02/2023 11:51 PM SALESPERSON SURGICAL APPLIANCES Emergency [facility] [address] [place] [address] Rickie Bailey MD Varicose veins of ankle [...] Comments Blood Pressure 135/85 07/02/2023 11:00 PM SALESPERSON SURGICAL APPLIANCES Pulse 92 07/02/2023 11:00 PM SALESPERSON SURGICAL APPLIANCES Temperature 37.1 ??C (98.7 ??F) 07/02/2023 9:49 PM CS T Respiratory Rate 18 07/02/2023 11:0 0 PM SALESPERSON SURGICAL APPLIANCES Oxygen Saturation 96% 07/02/2023 11: 00 PM SALESPERSON SURGICAL APPLIANCES Inhaled Oxygen Concentration - - Weight 203.8 kg (449 lb 4.8 oz) 07/02/2023 9:49 PM SALESPERSON SURGICAL APPLIANCES Height 190.5 cm (6' 3) 07/02/2023 9:49 PM SALESPERSON SURGICAL APPLIANCES Body Mass Index 56.16 07/02/2023 9:49 PM SALESPERSON SURGICAL APPLIANCES Plan of Treatment Health Maintenance Due Date [...] 7:11 AM 06/02/2012 12:53 PM Care Teams Deposit Refund Clerk Relationship Specialty Start Date End Date Terrell Fernandez MD [address] [place] [address] PCP - General Family Practice 08/11/21
--- OUTSIDE RECORDS SUMMARY | 2023-09-03 09:57 | XMS_ITS | Encounter Summary ---
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 [address] [place] [address] [facility] Region Referral ID Status Reason Start Date Expiration Date Visits Re quested Visits Authorized [id number] Closed 07/11/2023 07/10/2024 1 1 RE ADMINISTRATOR Reason for Visit * Reason Comments Consult Varicose veins * Appointment Request (Routine) - Closed Specialty Diagnoses / Procedures Referred By Contac t Referred To Contact General Surgery Referral ID Status Reason Start Date Expiration Date Visits Re quested Visits Authorized [id number] Closed 07/05/2023 07/04/2024 1 1 Encounter Details Date Type Department Care Team (Latest Contact Info) Description 07/11/2023 2:00 PM VMWARE ADMINISTRATOR Comprehensive Visit Department of General Surgery in [place], [place] [address], [place] [address] Cuco Brown P.A.-C. [address], [place] [address] Varicose Veins Of Bilateral Lower Extremity With [...] patient wasadvised of the need to wear txso-ymz-txyouka compression stockings for a minimum of 3 months. They understand once the ultrasound is complete, it will be reviewed by Dr. Tobias for consideration of treatment. Additionally, the nursing staff will complete the prior authorization process after which they will receive a phone call to notify them of approval and discuss scheduling the procedure. All of their questions were answered. RE ADMINISTRATOR documented in this encounter Plan of Treatment [...] of the anterior accessory saphenous vein. A pickle pumper vein is present off the posterior tibial vein. LEFT: Status post endovascular venous laser ablation of the great saphenous vein in 2017. 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 Varicosities arise off the anterior accessory saphenous vein in the upper thigh and connected to the remnant great saphenous vein in the calf and knee. A pickle pumper arises off the posterior tibial vein and [...] of the anterior accessory saphenous vein. A pickle pumper vein is present off the posterior tibial vein. LEFT: Status post endovascular venous laser ablation of the great saphenous vein in 2017. 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 Varicosities arise off the anterior accessory saphenous vein in the upper thigh and connected to the remnant great saphenous vein in the calf and knee. A pickle pumper arises off the posterior tibial vein and [...] of the anterior accessory saphenous vein. A pickle pumper veinis present off the posterior tibial vein. LEFT: Status post endovascular venous laser ablation of the greatsaphenous vein in 2017. Severe incompetence of the great saphenous vein inthe knee. Varicosities arise off the anterior accessory saphenous vein inthe upper thigh and connected to the remnant great saphenous vein in the calf and knee. A pickle pumper arises offthe posterior tibial vein and has [...] of the anterior accessory saphenous vein. A pickle pumper veinis present off the posterior tibial vein. LEFT: Status post endovascular venous laser ablation of the greatsaphenous vein in 2017. Severe incompetence of the great saphenous vein inthe knee. Varicosities arise off the anterior accessory saphenous vein inthe upper thigh and connected to the remnant great saphenous vein in the calf and knee. A pickle pumper arises offthe posterior tibial vein and has multiple varicosities, approximately 4cm above a superficial ulcer in the medial left ankle. 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
--- OUTSIDE RECORDS SUMMARY | 2023-09-03 09:57 | XMS_ITS | Encounter Summary ---
Author Name Unknown Organization [facility] Address [address] [place] [address] Care Team Providers Care Family Member Caretaker Name Role Phone Elsewhere, Pcp Primary Care Provider Unavailabl e Encounter Details Date Type Department Care Team (Late st Contact Info) Description 07/11/2023 2:10 PM TRANSFORMER MECHANIC Ancillary Procedure Department of General Surgery Social [...] SURGERY IMAGE EXAM Routine 07/11/2023 2:10 PM TRANSFORMER MECHANIC documented in this encounter Results * Leg-General Surgery Image Exam (07/11/2023 2:10 PM TRANSFORMER MECHANIC) 07/11/2023 2:10 PM TRANSFORMER MECHANIC Narrative IIMS - 07/11/2023 2:12 PM TRANSFORMER MECHANIC This order has been created and auto-finalized to support the import of images acquired without order. The clinical documentation to support these images can be found on the encounter that produced images. Provider Not In System IMG NON RAD IMAGI NG PROCEDURES IIMS NA documented in this encounter Visit Diagnoses Not on filedocumented in this encounter Care Teams Family Member Caretaker Relationship Specialty Start Date End Date Elsewhere, Pcp PCP - General Family Medicine 08/06/17 documented as of this encounter
--- OUTSIDE RECORDS SUMMARY | 2023-09-03 09:57 | XMS_ITS | Encounter Summary ---
Author Name Unknown Organization [facility] Address [address] [place] [address] Care Team Providers Care Research Instrumentation Technician Name Role Phone Elsewhere, Pcp Primary Care Provider Unavailabl e Encounter Details Date Type Department Care Team (Late st Contact Info) Description 11/07/2017 [facility] [address] [place] [address] Terrell Fernandez M.D. [address] [place] [address] Obesity Unspecified (Primary Dx) Social History Tobacco [...] Primary documented in this encounter Care Teams Research Instrumentation Technician Relationship Specialty Start Date End Date Elsewhere, Pcp PCP - General Family Medicine 08/06/17 documented as of this encounter
--- OUTSIDE RECORDS SUMMARY | 2023-09-03 09:57 | XMS_ITS | Encounter Summary ---
Author Name Unknown Organization [facility] Address [address] [place] [address] Care Team Providers Care Power Saw Operator Name Role Phone Elsewhere, Pcp Primary Care Provider Unavailabl e Reason for Visit * Reason Comments Bleeding/Bruising Encounter Details Date Type Department Care Team (Late st Contact Info) Description 07/02/2023 9:37 PM TANK CLEANING SUPERVISOR - 07/02/2023 11:51 PM TANK CLEANING SUPERVISOR Emergency [facility] [address] [place] [phone] Varicose Veins Of Right Lower Extremity With [...] Primary documented in this encounter Care Teams Power Saw Operator Relationship Specialty Start Date End Date Elsewhere, Pcp PCP - General Family Medicine 08/06/17 documented as of this encounter
--- OUTSIDE RECORDS SUMMARY | 2023-09-03 09:57 | XMS_ITS | Encounter Summary ---
Author Name Unknown Organization [facility] Address [address] [place] [address] Care Team Providers Care Tower Erector Name Role Phone Elsewhere, Pcp Primary Care Provider Unavailabl e Encounter Details Date Type Department Care Team (Late st Contact Info) Description 03/25/2018 [facility] [address] [place] [address] Terrell Fernandez M.D. [address] [place] [address] Contracture Dupuytren's (Primary Dx) Social History Tobacco [...] Primary documented in this encounter Care Teams Tower Erector Relationship Specialty Start Date End Date Elsewhere, Pcp PCP - General Family Medicine 08/06/17 documented as of this encounter
--- OUTSIDE RECORDS SUMMARY | 2023-09-03 09:57 | XMS_ITS | Clinical Summary ---
Author Name Unknown Organization [facility] Address [address] [place] [address] Care Team Providers Care Campus President Name Role Phone Elsewhere, Pcp Primary Care Provider Unavailabl e Source Comments Patient records contain information from all sites at [facility]. For routine questions regarding patient records, call [phone] during business hours, M-F 8:00 AM - 5:00 PM Central Time. Record requests for emergency care only can be directed to [phone] at any time.[facility] Allergies Active Allergy Reactions Criticality Noted [...] CDT Hospital Encounter Department of Radiology in [place], [place] [address] [address] Cuco Brown P.A.-C. 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 A cashier associate vein is present off the posterior tibial vein. LEFT: Status post endovascular venous laser ablation of the great saphenous vein in 2017. 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 Varicosities arise off the anterior accessory saphenous vein in the upper thigh and connected to the remnant great saphenous vein in the calf and knee. A cashier associate arises off the posterior tibial vein and [...] of the anterior accessory saphenous vein. A cashier associate vein is present off the posterior tibial vein. LEFT: Status post endovascular venous laser ablation of the great saphenous vein in 2017. 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 Varicosities arise off the anterior accessory saphenous vein in the upper thigh and connected to the remnant great saphenous vein in the calf and knee. A cashier associate arises off the posterior tibial vein and [...] of the anterior accessory saphenous vein. A cashier associate veinis present off the posterior tibial vein. LEFT: Status post endovascular venous laser ablation of the greatsaphenous vein in 2017. Severe incompetence of the great saphenous vein inthe knee. Varicosities arise off the anterior accessory saphenous vein inthe upper thigh and connected to the remnant great saphenous vein in the calf and knee. A cashier associate arises offthe posterior tibial vein and has [...] of the anterior accessory saphenous vein. A cashier associate veinis present off the posterior tibial vein. LEFT: Status post endovascular venous laser ablation of the greatsaphenous vein in 2017. Severe incompetence of the great saphenous vein inthe knee. Varicosities arise off the anterior accessory saphenous vein inthe upper thigh and connected to the remnant great saphenous vein in the calf and knee. A cashier associate arises offthe posterior tibial vein and has multiple varicosities, approximately 4cm above a superficial ulcer in the medial left ankle. Cuco Brown P.A.-C. IMG US PROCEDUR ES * Leg-General Surgery Image Exam (07/11/2023 2:10 PM TOOL AND DIE INSPECTOR) 07/11/2023 2:10 PM TOOL AND DIE INSPECTOR Narrative IIMS - 07/11/2023 2:12 PM TOOL AND DIE INSPECTOR This order has been created and auto-finalized [...] - 5.2 mmol/L 12/27/2017 5:36 PM CDT [facility] Sodium, P 140 135 - 145 mmol/L 12/27/2017 5:36 PM CDT [facility] Chloride, P 102 98 - 107 mmol/L 12/27/2017 5:36 PM CDT [facility] Bicarbonate, P 25 22 - 29 mmol/L 12/27/2017 5:36 PM CDT [facility] Anion Gap, P 13 7 - 15 12/27/2017 5:36 PM CDT [facility] BUN (Blood Urea Nitrogen), P 15 8 - 24 mg/dL 12/27/2017 5:36 PM CDT [facility] Creatinine 0.85 0.74 - 1.35 mg/dL 12/27/2017 5:36 PM CDT [facility] eGFR-Black/Afri can Honduran >90 >=60 mL/min/BSA 12/27/2017 5:36 PM CDT [facility] Comment: ----ADDITIONAL INFORMATION---- Estimated GFR calculated using the 2009 CKD_EPI creatinine equation. eGFR Non-Black/Afric an Honduran >90 >=60 mL/min/BSA 12/27/2017 5:36 PM CDT [facility] Comment: ----ADDITIONAL INFORMATION---- Estimated GFR calculated using the 2009 CKD_EPI creatinine equation. Calcium, Total, P 9.1 8.6 - 10.0 mg/dL 12/27/2017 5:36 PM CDT [facility] Glucose, P 89 70 - 140 mg/dL 12/27/2017 5:36 PM CDT [facility] Blood (Blood, Venous) 12/27/2017 5:11 PM CDT 12/27/2017 5:16 PM CDT Gabriel Mccracken M.D. LAB BLOOD ADD-ON [facility] [address] * (ABNORMAL) Lipid Panel (01/25/2016 8:48 [...] for FH and FDB is available through [employer]: FH/ADH Genetic Reflex Panel (test ADHP). Acquired (non-genetic) causes of markedly increased LDL cholesterol include cholestatic liver disease due to the presence of LpX. If a genetic form of hypercholesterolemia is suspected, family studies including biochemical testing for lipids (total cholesterol,triglycerides, LDL cholesterol and HDL cholesterol) are recommended. ??Please contact the laboratory at or the on-line test catalog at [facility] for information about how to order these [...] Recently Relevant to Health Maintenance Care Teams Campus President Relationship Specialty Start Date End Date Elsewhere, Pcp PCP - General Family Medicine 08/06/17
--- OUTSIDE RECORDS SUMMARY | 2023-09-03 09:57 | XMS_ITS | Encounter Summary ---
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 [address] [place] [address] [facility] Region Referral ID Status Reason Start Date Expiration Date Visits Re quested Visits Authorized [id number] Closed 07/11/2023 07/10/2024 1 1 Encounter Details Date Type Department Care Team (Latest Contact Info) Description 07/30/2023 2:45 PM CDT - 07/30/2023 11:59 PM CDT Hospital Encounter Department of Radiology in [place], [place] [address] [place] [address] Cuco Brown P.A.-C. [address] [place] [address] Varicose Veins Of Bilateral Lower [...] of the anterior accessory saphenous vein. A weaving inspector vein is present off the posterior tibial vein. LEFT: Status post endovascular venous laser ablation of the great saphenous vein in 2017. 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 Varicosities arise off the anterior accessory saphenous vein in the upper thigh and connected to the remnant great saphenous vein in the calf and knee. A weaving inspector arises off the posterior tibial vein and [...] of the anterior accessory saphenous vein. A weaving inspector vein is present off the posterior tibial vein. LEFT: Status post endovascular venous laser ablation of the great saphenous vein in 2017. 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 Varicosities arise off the anterior accessory saphenous vein in the upper thigh and connected to the remnant great saphenous vein in the calf and knee. A weaving inspector arises off the posterior tibial vein and [...] of the anterior accessory saphenous vein. A weaving inspector veinis present off the posterior tibial vein. LEFT: Status post endovascular venous laser ablation of the greatsaphenous vein in 2017. Severe incompetence of the great saphenous vein inthe knee. Varicosities arise off the anterior accessory saphenous vein inthe upper thigh and connected to the remnant great saphenous vein in the calf and knee. A weaving inspector arises offthe posterior tibial vein and has [...] of the anterior accessory saphenous vein. A weaving inspector veinis present off the posterior tibial vein. LEFT: Status post endovascular venous laser ablation of the greatsaphenous vein in 2017. Severe incompetence of the great saphenous vein inthe knee. Varicosities arise off the anterior accessory saphenous vein inthe upper thigh and connected to the remnant great saphenous vein in the calf and knee. A weaving inspector arises offthe posterior tibial vein and has multiple varicosities, approximately 4cm above a superficial ulcer in the medial left ankle. 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
--- OUTSIDE RECORDS SUMMARY | 2023-09-03 09:57 | XMS_ITS | Referral Summary ---
Author Name Unknown Organization [facility] Address [address] [place] [address] Care Team Providers Care Technician Submarine Cable Equipment Name Role Phone Elsewhere, Pcp Primary Care Provider Unavailabl e Source Comments Patient records contain information from all sites at [facility]. For routine questions regarding patient records, call [phone] during business hours, M-F 8:00 AM - 5:00 PM Central Time. Record requests for emergency care only can be directed to [phone] at any time.[facility] Encounters Date Type Department Care Team Description 07/30/2023 2:45 PM CDT - 07/30/2023 11:59 PM CDT Hospital Encounter Department of Radiology in [place], [place] [address] [place] [phone] Cuco Brown P.A.-C. 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 A air conditioning manager vein is present off the posterior tibial vein. LEFT: Status post endovascular venous laser ablation of the great saphenous vein in 2016. 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 Varicosities arise off the anterior accessory saphenous vein in the upper thigh and connected to the remnant great saphenous vein in the calf and knee. A air conditioning manager arises off the posterior tibial vein and [...] of the anterior accessory saphenous vein. A air conditioning manager vein is present off the posterior tibial vein. LEFT: Status post endovascular venous laser ablation of the great saphenous vein in 2017. 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 Varicosities arise off the anterior accessory saphenous vein in the upper thigh and connected to the remnant great saphenous vein in the calf and knee. A air conditioning manager arises off the posterior tibial vein and [...] of the anterior accessory saphenous vein. A air conditioning manager veinis present off the posterior tibial vein. LEFT: Status post endovascular venous laser ablation of the greatsaphenous vein in 2017. Severe incompetence of the great saphenous vein inthe knee. Varicosities arise off the anterior accessory saphenous vein inthe upper thigh and connected to the remnant great saphenous vein in the calf and knee. A air conditioning manager arises offthe posterior tibial vein and has [...] of the anterior accessory saphenous vein. A air conditioning manager veinis present off the posterior tibial vein. LEFT: Status post endovascular venous laser ablation of the greatsaphenous vein in 2017. Severe incompetence of the great saphenous vein inthe knee. Varicosities arise off the anterior accessory saphenous vein inthe upper thigh and connected to the remnant great saphenous vein in the calf and knee. A air conditioning manager arises offthe posterior tibial vein and has multiple varicosities, approximately 4cm above a superficial ulcer in the medial left ankle. Cuco Brown P.A.-C. IMG US PROCEDUR ES * Leg-General Surgery Image Exam (07/11/2023 2:10 PM DATA SYSTEMS ANALYST) 07/11/2023 2:10 PM DATA SYSTEMS ANALYST Narrative IIMS - 07/11/2023 2:12 PM DATA SYSTEMS ANALYST This order has been created and auto-finalized to support the import of images acquired without order. The clinical documentation to support these images can be found on the encounter that produced images. Provider Not In System IMG NON RAD IMAGI NG PROCEDURES IIMA NA * (ABNORMAL) BMP (Basic Metabolic Panel) (12/27/2017 5:11 PM CDT) Potassium, P 3.5(L) 3.6 - 5.2 mmol/L 12/27/2017 5:36 PM CDT [facility] Sodium, P 140 135 - 145 mmol/L 12/27/2017 5:36 PM CDT [facility] Chloride, P 102 98 - 107 mmol/L 12/27/2017 5:36 PM CDT [facility] Bicarbonate, P 25 22 - 29 mmol/L 12/27/2017 5:36 PM CDT [facility] Anion Gap, P 13 7 - 15 12/27/2017 5:36 PM CDT [facility] BUN (Blood Urea Nitrogen), P 15 8 - 24 mg/dL 12/27/2017 5:36 PM CDT [facility] Creatinine 0.85 0.74 - 1.35 mg/dL 12/27/2017 5:36 PM CDT [facility] eGFR-Black/Afri can Lithuanian >90 >=60 mL/min/BSA 12/27/2017 5:36 PM CDT [facility] Comment: ----ADDITIONAL INFORMATION---- Estimated GFR calculated using the 2009 CKD_EPI creatinine equation. eGFR Non-Black/Afric an Lithuanian >90 >=60 mL/min/BSA 12/27/2017 5:36 PM CDT [facility] Comment: ----ADDITIONAL INFORMATION---- Estimated GFR calculated using the 2009 CKD_EPI creatinine equation. Calcium, Total, P 9.1 8.6 - 10.0 mg/dL 12/27/2017 5:36 PM CDT [facility] Glucose, P 89 70 - 140 mg/dL 12/27/2017 5:36 PM CDT [facility] Blood (Blood, Venous) 12/27/2017 5:11 PM CDT 12/27/2017 5:16 PM CDT Gabriel Mccracken M.D. LAB BLOOD ADD-ON [facility] [address] [place], [place] [id number] [place] [address] * (ABNORMAL) Lipid Panel (01/25/2016 8:48 AM [...] for FH and FDB is available through [facility]: FH/ADH Genetic Reflex Panel (test ADHP). Acquired (non-genetic) causes of markedly increased LDL cholesterol include cholestatic liver disease due to the presence of LpX. If a genetic form of hypercholesterolemia is suspected, family studies including biochemical testing for lipids (total cholesterol,triglycerides, LDL cholesterol and HDL cholesterol) are recommended. ??Please contact the laboratory at or the on-line test catalog at [facility] for information about how to order these [...] Recently Relevant to Health Maintenance Care Teams Technician Submarine Cable Equipment Relationship Specialty Start Date End Date Elsewhere, Pcp PCP - General Family Medicine 08/06/17
--- OUTSIDE RECORDS SUMMARY | 2023-09-03 09:57 | XMS_ITS ---
Author Name Unknown Organization [facility] Address [address] [place] [address] Care Team Providers Care Senior Electrical Engineer Name Role Phone Unavailable Unavailable Unavailable Surgery Details Not on file Complications Check Surgery Details section. Procedure Estimated Blood Loss Check Surgery Details section. Procedure Findings Check Surgery Details section. Procedure Specimens Taken Check Surgery Details section.
== END 2023-09-03 09:56 | disposition home or self-care (01) ==
LOC: WOUND 09:55
PROVIDERS: PCP Family Medicine; Visit Provider Nurse Practitioner Family
DX: I87.312 Chronic venous hypertension (idiopathic) with ulcer of left lower extremity (principal); I87.2 Venous insufficiency (chronic) (peripheral); L97.322 Non-pressure chronic ulcer of left ankle with fat layer exposed; I89.0 Lymphedema, not elsewhere classified
CPT/HCPCS: 11042

== ENCOUNTER 2023-09-10 09:56 | Outpatient (CLI) | payer BC, SELFPAY | END 2023-09-10 09:57 | disposition home or self-care (01) | LOC: WOUND 09:56 | PROVIDERS: PCP Family Medicine; Visit Provider Nurse Practitioner Family | DX: I87.312 Chronic venous hypertension (idiopathic) with ulcer of left lower extremity (principal); I87.2 Venous insufficiency (chronic) (peripheral); L97.322 Non-pressure chronic ulcer of left ankle with fat layer exposed; I10 Essential (primary) hypertension; I48.91 Unspecified atrial fibrillation; I71.21 Aneurysm of the ascending aorta, without rupture; N40.1 Benign prostatic hyperplasia with lower urinary tract symptoms; R35.1 Nocturia; E87.6 Hypokalemia; E66.01 Morbid (severe) obesity due to excess calories; Z68.43 Body mass index [BMI] 50.0-59.9, adult | CPT/HCPCS: 80053; 80061; 83880; 97597; G0103 ==

== ENCOUNTER 2023-09-17 09:44 | Outpatient (CLI) | payer BC, SELFPAY ==
--- OUTSIDE RECORDS SUMMARY | 2023-09-17 09:46 | XMS_ITS | Encounter Summary ---
Author Name Unknown Organization [facility] Address [address] [place] [address] Care Team Providers Care Restaurant Crew Member Name Role Phone Elsewhere, Pcp Primary Care Provider Unavailabl e Encounter Details Date Type Department Care Team (Late st Contact Info) Description 03/25/2018 [facility] [address] [place] [address] Terrell Fernandez M.D. [address] [place] [address] Contracture Dupuytren's (Primary Dx) Social History Tobacco [...] Primary documented in this encounter Care Teams Restaurant Crew Member Relationship Specialty Start Date End Date Elsewhere, Pcp PCP - General Family Medicine 08/06/17 documented as of this encounter
--- OUTSIDE RECORDS SUMMARY | 2023-09-17 09:46 | XMS_ITS | Encounter Summary ---
Author Name Unknown Organization [facility] Address [address] [place] [address] Care Team Providers Care Tie Hacker Name Role Phone Elsewhere, Pcp Primary Care Provider Unavailabl e Encounter Details Date Type Department Care Team (Late st Contact Info) Description 11/07/2017 [facility] [address] [place] [address] Terrell Fernandez M.D. [address] [place] [address] Obesity Unspecified (Primary Dx) Social History Tobacco [...] Primary documented in this encounter Care Teams Tie Hacker Relationship Specialty Start Date End Date Elsewhere, Pcp PCP - General Family Medicine 08/06/17 documented as of this encounter
--- OUTSIDE RECORDS SUMMARY | 2023-09-17 09:46 | XMS_ITS ---
Author Name Unknown Organization [facility] Address [address] [place] [address] Care Team Providers Care Supervisor Pleating Name Role Phone Unavailable Unavailable Unavailable Surgery Details Not on file Complications Check Surgery Details section. Procedure Estimated Blood Loss Check Surgery Details section. Procedure Findings Check Surgery Details section. Procedure Specimens Taken Check Surgery Details section.
--- OUTSIDE RECORDS SUMMARY | 2023-09-17 09:46 | XMS_ITS | Encounter Summary ---
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 [address] [place] [address] [facility] Region Referral ID Status Reason Start Date Expiration Date Visits Re quested Visits Authorized [id number] Closed 07/11/2023 07/10/2024 1 1 Encounter Details Date Type Department Care Team (Latest Contact Info) Description 07/30/2023 2:45 PM CDT - 07/30/2023 11:59 PM CDT Hospital Encounter Department of Radiology in [place], [place] [address] [place] [address] Cuco Brown P.A.-C. [address] [place] [address] Varicose Veins Of Bilateral Lower [...] of the anterior accessory saphenous vein. A forest ecologist vein is present off the posterior tibial vein. LEFT: Status post endovascular venous laser ablation of the great saphenous vein in 2017. 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 Varicosities arise off the anterior accessory saphenous vein in the upper thigh and connected to the remnant great saphenous vein in the calf and knee. A forest ecologist arises off the posterior tibial vein and [...] of the anterior accessory saphenous vein. A forest ecologist vein is present off the posterior tibial vein. LEFT: Status post endovascular venous laser ablation of the great saphenous vein in 2017. 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 Varicosities arise off the anterior accessory saphenous vein in the upper thigh and connected to the remnant great saphenous vein in the calf and knee. A forest ecologist arises off the posterior tibial vein and [...] of the anterior accessory saphenous vein. A forest ecologist veinis present off the posterior tibial vein. LEFT: Status post endovascular venous laser ablation of the greatsaphenous vein in 2017. Severe incompetence of the great saphenous vein inthe knee. Varicosities arise off the anterior accessory saphenous vein inthe upper thigh and connected to the remnant great saphenous vein in the calf and knee. A forest ecologist arises offthe posterior tibial vein and has [...] of the anterior accessory saphenous vein. A forest ecologist veinis present off the posterior tibial vein. LEFT: Status post endovascular venous laser ablation of the greatsaphenous vein in 2017. Severe incompetence of the great saphenous vein inthe knee. Varicosities arise off the anterior accessory saphenous vein inthe upper thigh and connected to the remnant great saphenous vein in the calf and knee. A forest ecologist arises offthe posterior tibial vein and has multiple varicosities, approximately 4cm above a superficial ulcer in the medial left ankle. 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
--- OUTSIDE RECORDS SUMMARY | 2023-09-17 09:46 | XMS_ITS | Encounter Summary ---
Author Name Unknown Organization [facility] Address [address] [place] [address] Care Team Providers Care Primer Expeditor And Drier Name Role Phone Elsewhere, Pcp Primary Care Provider Unavailabl e Reason for Visit * Reason Comments Bleeding/Bruising Encounter Details Date Type Department Care Team (Late st Contact Info) Description 07/02/2023 9:37 PM DRAW END HAND - 07/02/2023 11:51 PM DRAW END HAND Emergency [facility] [address] [place] [phone] Varicose Veins Of Right Lower Extremity With [...] Primary documented in this encounter Care Teams Primer Expeditor And Drier Relationship Specialty Start Date End Date Elsewhere, Pcp PCP - General Family Medicine 08/06/17 documented as of this encounter
--- OUTSIDE RECORDS SUMMARY | 2023-09-17 09:46 | XMS_ITS | Referral Summary ---
Author Name Unknown Organization [facility] Address [address] [place] [address] Care Team Providers Care Quantitative Consultant Name Role Phone Elsewhere, Pcp Primary Care Provider Unavailabl e Source Comments Patient records contain information from all sites at [facility]. For routine questions regarding patient records, call [phone] during business hours, M-F 8:00 AM - 5:00 PM Central Time. Record requests for emergency care only can be directed to [phone] at any time.[facility] Encounters Date Type Department Care Team Description 07/30/2023 2:45 PM CDT - 07/30/2023 11:59 PM CDT Hospital Encounter Department of Radiology in [place], [place] [address] [place] [phone] Cuco Brown P.A.-C. 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 A seismic survey assistant vein is present off the posterior tibial vein. LEFT: Status post endovascular venous laser ablation of the great saphenous vein in 2016. 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 Varicosities arise off the anterior accessory saphenous vein in the upper thigh and connected to the remnant great saphenous vein in the calf and knee. A seismic survey assistant arises off the posterior tibial vein and [...] of the anterior accessory saphenous vein. A seismic survey assistant vein is present off the posterior tibial vein. LEFT: Status post endovascular venous laser ablation of the great saphenous vein in 2017. 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 Varicosities arise off the anterior accessory saphenous vein in the upper thigh and connected to the remnant great saphenous vein in the calf and knee. A seismic survey assistant arises off the posterior tibial vein and [...] of the anterior accessory saphenous vein. A seismic survey assistant veinis present off the posterior tibial vein. LEFT: Status post endovascular venous laser ablation of the greatsaphenous vein in 2017. Severe incompetence of the great saphenous vein inthe knee. Varicosities arise off the anterior accessory saphenous vein inthe upper thigh and connected to the remnant great saphenous vein in the calf and knee. A seismic survey assistant arises offthe posterior tibial vein and has [...] of the anterior accessory saphenous vein. A seismic survey assistant veinis present off the posterior tibial vein. LEFT: Status post endovascular venous laser ablation of the greatsaphenous vein in 2017. Severe incompetence of the great saphenous vein inthe knee. Varicosities arise off the anterior accessory saphenous vein inthe upper thigh and connected to the remnant great saphenous vein in the calf and knee. A seismic survey assistant arises offthe posterior tibial vein and has multiple varicosities, approximately 4cm above a superficial ulcer in the medial left ankle. Cuco Brown P.A.-C. IMG US PROCEDUR ES * Leg-General Surgery Image Exam (07/11/2023 2:10 PM ARMY RANGER) 07/11/2023 2:10 PM ARMY RANGER Narrative IIMS - 07/11/2023 2:12 PM ARMY RANGER This order has been created and auto-finalized to support the import of images acquired without order. The clinical documentation to support these images can be found on the encounter that produced images. Provider Not In System IMG NON RAD IMAGI NG PROCEDURES IIKS NA * (ABNORMAL) BMP (Basic Metabolic Panel) (12/27/2017 5:11 PM CDT) Potassium, P 3.5(L) 3.6 - 5.2 mmol/L 12/27/2017 5:36 PM CDT [facility] Sodium, P 140 135 - 145 mmol/L 12/27/2017 5:36 PM CDT [facility] Chloride, P 102 98 - 107 mmol/L 12/27/2017 5:36 PM CDT [facility] Bicarbonate, P 25 22 - 29 mmol/L 12/27/2017 5:36 PM CDT [facility] Anion Gap, P 13 7 - 15 12/27/2017 5:36 PM CDT [facility] BUN (Blood Urea Nitrogen), P 15 8 - 24 mg/dL 12/27/2017 5:36 PM CDT [facility] Creatinine 0.85 0.74 - 1.35 mg/dL 12/27/2017 5:36 PM CDT [facility] eGFR-Black/Afri can Panamanian >90 >=60 mL/min/BSA 12/27/2017 5:36 PM CDT [facility] Comment: ----ADDITIONAL INFORMATION---- Estimated GFR calculated using the 2009 CKD_EPI creatinine equation. eGFR Non-Black/Afric an Panamanian >90 >=60 mL/min/BSA 12/27/2017 5:36 PM CDT [facility] Comment: ----ADDITIONAL INFORMATION---- Estimated GFR calculated using the 2009 CKD_EPI creatinine equation. Calcium, Total, P 9.1 8.6 - 10.0 mg/dL 12/27/2017 5:36 PM CDT [facility] Glucose, P 89 70 - 140 mg/dL 12/27/2017 5:36 PM CDT [facility] Blood (Blood, Venous) 12/27/2017 5:11 PM CDT 12/27/2017 5:16 PM CDT Gabriel Mccracken M.D. LAB BLOOD ADD-ON [facility] [address] [place], [place] [address] [place] [address] * (ABNORMAL) Lipid Panel (01/25/2016 8:48 AM [...] for FH and FDB is available through [facility]: FH/ADH Genetic Reflex Panel (test ADHP). Acquired (non-genetic) causes of markedly increased LDL cholesterol include cholestatic liver disease due to the presence of LpX. If a genetic form of hypercholesterolemia is suspected, family studies including biochemical testing for lipids (total cholesterol,triglycerides, LDL cholesterol and HDL cholesterol) are recommended. ??Please contact the laboratory at or the on-line test catalog at [facility] for information about how to order these [...] Recently Relevant to Health Maintenance Care Teams Quantitative Consultant Relationship Specialty Start Date End Date Elsewhere, Pcp PCP - General Family Medicine 08/06/17
--- OUTSIDE RECORDS SUMMARY | 2023-09-17 09:46 | XMS_ITS | Clinical Summary ---
Author Name Unknown Organization [facility] Address [address] [place] [address] Care Team Providers Care Clam Treader Name Role Phone Elsewhere, Pcp Primary Care Provider Unavailabl e Source Comments Patient records contain information from all sites at [facility]. For routine questions regarding patient records, call [phone] during business hours, M-F 8:00 AM - 5:00 PM Central Time. Record requests for emergency care only can be directed to [phone] at any time.[facility] Allergies Active Allergy Reactions Criticality Noted [...] CDT Hospital Encounter Department of Radiology in [place], [place] [address] [phone] Cuco Brown P.A.-C. 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 A passenger locomotive engineer vein is present off the posterior tibial vein. LEFT: Status post endovascular venous laser ablation of the great saphenous vein in 2017. 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 Varicosities arise off the anterior accessory saphenous vein in the upper thigh and connected to the remnant great saphenous vein in the calf and knee. A passenger locomotive engineer arises off the posterior tibial vein [...] of the anterior accessory saphenous vein. A passenger locomotive engineer vein is present off the posterior tibial vein. LEFT: Status post endovascular venous laser ablation of the great saphenous vein in 2017. 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 Varicosities arise off the anterior accessory saphenous vein in the upper thigh and connected to the remnant great saphenous vein in the calf and knee. A passenger locomotive engineer arises off the posterior tibial vein [...] of the anterior accessory saphenous vein. A passenger locomotive engineer veinis present off the posterior tibial vein. LEFT: Status post endovascular venous laser ablation of the greatsaphenous vein in 2017. Severe incompetence of the great saphenous vein inthe knee. Varicosities arise off the anterior accessory saphenous vein inthe upper thigh and connected to the remnant great saphenous vein in the calf and knee. A passenger locomotive engineer arises offthe posterior tibial vein and [...] of the anterior accessory saphenous vein. A passenger locomotive engineer veinis present off the posterior tibial vein. LEFT: Status post endovascular venous laser ablation of the greatsaphenous vein in 2017. Severe incompetence of the great saphenous vein inthe knee. Varicosities arise off the anterior accessory saphenous vein inthe upper thigh and connected to the remnant great saphenous vein in the calf and knee. A passenger locomotive engineer arises offthe posterior tibial vein and has multiple varicosities, approximately 4cm above a superficial ulcer in the medial left ankle. Cuco Brown P.A.-C. IMG US PROCEDUR ES * Leg-General Surgery Image Exam (07/11/2023 2:10 PM BARBER SHOP OPERATOR) 07/11/2023 2:10 PM BARBER SHOP OPERATOR Narrative IIMS - 07/11/2023 2:12 PM BARBER SHOP OPERATOR This order has been created and [...] - 5.2 mmol/L 12/27/2017 5:36 PM CDT [facility] Sodium, P 140 135 - 145 mmol/L 12/27/2017 5:36 PM CDT [facility] Chloride, P 102 98 - 107 mmol/L 12/27/2017 5:36 PM CDT [facility] Bicarbonate, P 25 22 - 29 mmol/L 12/27/2017 5:36 PM CDT [facility] Anion Gap, P 13 7 - 15 12/27/2017 5:36 PM CDT [facility] BUN (Blood Urea Nitrogen), P 15 8 - 24 mg/dL 12/27/2017 5:36 PM CDT [facility] Creatinine 0.85 0.74 - 1.35 mg/dL 12/27/2017 5:36 PM CDT [facility] eGFR-Black/Afri can Ivorian >90 >=60 mL/min/BSA 12/27/2017 5:36 PM CDT [facility] Comment: ----ADDITIONAL INFORMATION---- Estimated GFR calculated using the 2009 CKD_EPI creatinine equation. eGFR Non-Black/Afric an Ivorian >90 >=60 mL/min/BSA 12/27/2017 5:36 PM CDT [facility] Comment: ----ADDITIONAL INFORMATION---- Estimated GFR calculated using the 2009 CKD_EPI creatinine equation. Calcium, Total, P 9.1 8.6 - 10.0 mg/dL 12/27/2017 5:36 PM CDT [facility] Glucose, P 89 70 - 140 mg/dL 12/27/2017 5:36 PM CDT [facility] Blood (Blood, Venous) 12/27/2017 5:11 PM CDT 12/27/2017 5:16 PM CDT Gabriel Mccracken M.D. LAB BLOOD ADD-ON [facility] [address] * (ABNORMAL) Lipid Panel (01/25/2016 8:48 [...] for FH and FDB is available through [facility] [facility]: FH/ADH Genetic Reflex Panel (test ADHP). Acquired (non-genetic) causes of markedly increased LDL cholesterol include cholestatic liver disease due to the presence of LpX. If a genetic form of hypercholesterolemia is suspected, family studies including biochemical testing for lipids (total cholesterol,triglycerides, LDL cholesterol and HDL cholesterol) are recommended. ??Please contact the laboratory at or the on-line test catalog at [email or web address] for information about how to order these [...] Recently Relevant to Health Maintenance Care Teams Clam Treader Relationship Specialty Start Date End Date Elsewhere, Pcp PCP - General Family Medicine 08/06/17
--- OUTSIDE RECORDS SUMMARY | 2023-09-17 09:46 | XMS_ITS | Data Portability ---
Author Name Unknown Address [address] [place] [address] Phone [phone] Organization [place] - [facility], [employer] Address [address] [place] [address] Assessment Encounter Date Assessment Date Assessment LastModified [...] a recheck. [email or web address] Not available 12/28/2022 15:54:11 09/06/2023 09/06/2023 The patient was informed of his diagnosis as detailed down below. At this time the patient was informed that I would NOT recommend phenol and alcohol procedures secondary to my significant concern regarding healing that procedure due to his underlying skin envelope. The patient was understanding of this and will be seen in 2 weeks for a recheck. [email or web address] Not available 09/06/2023 16:25:20 Plan of Treatment Reminders Order Date Submit Date Provider Last Modified By Organization Details Last Modified Time Details Appointments [facility] CHECK 15 2023 03:00P Kenzie George Not available Not available Not available Office Visit 2023 03:00P Kenzie George Not available Not available Not available Lab None recorded . Referral None recorded . Procedures None recorded . Surgeries None recorded . Imaging None recorded . Medication Orders None recorded . Patient TargetsNo targets recorded. Patient InstructionsNo instructions recorded. Reason for Referral None Reported. Problems Name Status Onset Date Resolution Date Notes Provider Name and Address Organization Details Recorded Time Foot joint pain Active 019 Foot joint pain; Original Code: 098650450 Maximino ginal Codesystem: SNOMED CT Classifica tion: Medical Confi rmation Status: Confirmed Not Available [facility] 3 09:13:23 Hypertensive disorder Active 017 Hypertensive disorder; Original Code: 4136935106 Or iginal Codesystem: SNOMED CT Classifica tion: Medical Confi rmation Status: Confirmed Not Available [facility] 3 09:13:23 Peroneal tendinitis of left lower limb Active 019 Peroneal tendinitis of left lower limb; Original Code: 5453834405 Or iginal Codesystem: SNOMED CT Classifica tion: Medical Confi rmation Status: Confirmed Not Available [facility] 3 09:13:23 Heart disease Active 017 Heart disease; Original Code: 48636255 Orig inal Codesystem: SNOMED CT Classifica tion: Medical Confi rmation Status: Confirmed Not Available [facility] 3 09:13:23 Foot pain Active 017 Foot pain; Original Code: 411326098 Maximino ginal Codesystem: SNOMED CT Classifica tion: Medical Confi rmation Status: Confirmed Not Available [facility] 3 09:13:23 Congenital varus deformity of foot Active 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 Procedures Surgical History Date Name Laterality Status Provider Name and Address Organization Details Recorded Time [address] Christianson completed SOPHIE Mathews - [facility] 09/06/2023 16:12:[address] Christianson active SOPHIE Mathews - [facility] 01/11/2023 14:18:[address] Christianson completed Arvind George, DPM [address] [place], [address], [facility] - [facility] 12/28/2022 15:48:44 Imaging Results None recorded. Procedure Notes None recorded. Medical Equipment None Reported. Medications Name Sig Start Date Stop Date Status Note LastModified by Organization Details LastModified Time terazosin 5 mg capsule TAKE 1 CAPSULE BY MOUTH ONCE DAILY AT BEDTIME active Not Available Not Available No t Available prednisone 20 mg tablet TAKE ONE TABLET BY MOUTH TWICE A DAY FOR 5 DAYS active Not Available Not Available No t Available triamterene 37.5 mg-hydrochloro thiazide 25 mg capsule TAKE 2 CAPSULES BY MOUTH IN THE MORNING active Not Available Not Available No t Available potassium chloride ER 20 mEq tablet,extende d release(part/c ryst) TAKE 2 TABLETS BY MOUTH TWICE DAILY active Not Available Not Available No t Available cephalexin 500 mg capsule TAKE 1 CAPSULE BY MOUTH THREE TIMES DAILY active Not Available Not Available No t Available triamcinolone acetonide 0.1 % topical ointment APPLY TO AFFECTED AREA(S) TWO TIMES A DAY active Not Available Not Available No t [...] t Available metoprolol succinate ER 25 mg tablet,extende d release 24 hr TAKE 1 TABLET BY [...] Diagnosis/Indication Diagnosis SNOMED-CT Code [address] [facility] Main Office [address] [place] [address] 12/28/2022 14:45:58 12/28/2022 16:06:42 Paronychia of toe of right foot [id number] [facility] Main Office [address] [place] [address] 09/06/2023 15:53:58 09/11/2023 10:41:24 Ingrowing nail 708513258 Paronychia of toe of right foot [id number] 02 Health Concerns Section Related Observation LastModified by Organization Detai ls LastModified Time None Recorded Concern Status LastModified by Organization Details LastModified Time None Recorded Advance Directives Directive None Recorded Payers Encounter Date Sequence Insurance Name Policy Number Policy Lin Covered Member ID Lin Member ID Guarantor Name 09/06/2023 1 [place] [id number] Robert Charles [id number] Robert Charles 12/28/2022 1 MEDICA CHOICE [facility] - CHOICE PLUS (POS) Robert Charles [id number] Robert Charles Notes Date Note Type Note [...] to the right Hallux. Arvind George DPM [address] [place], [address], [facility] 12/28/2022 15:54:14 09/06/2023 text/html HPI Notes: Patient is a 62 [...] to the right Hallux. Arvind George DPM [address] [place], [address], [facility] 09/10/2023 14:32:25
--- OUTSIDE RECORDS SUMMARY | 2023-09-17 09:46 | XMS_ITS | Encounter Summary ---
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 [address] [place] [address] [facility] Region Referral ID Status Reason Start Date Expiration Date Visits Re quested Visits Authorized [id number] Closed 07/11/2023 07/10/2024 1 1 DING ECONOMIST Reason for Visit * Reason Comments Consult Varicose veins * Appointment Request (Routine) - Closed Specialty Diagnoses / Procedures Referred By Contac t Referred To Contact General Surgery Referral ID Status Reason Start Date Expiration Date Visits Re quested Visits Authorized [id number] Closed 07/05/2023 07/04/2024 1 1 Encounter Details Date Type Department Care Team (Latest Contact Info) Description 07/11/2023 2:00 PM BUILDING ECONOMIST Comprehensive Visit Department of General Surgery in [place], [place] [address], [place] [address] Cuco Brown P.A.-C. [address], [place] [address] Varicose Veins Of Bilateral Lower Extremity With [...] patient wasadvised of the need to wear [id number] compression stockings for a minimum of 3 months. They understand once the ultrasound is complete, it will be reviewed by Dr. Tobias for consideration of treatment. Additionally, the nursing staff will complete the prior authorization process after which they will receive a phone call to notify them of approval and discuss scheduling the procedure. All of their questions were answered. DING ECONOMIST documented in this encounter Plan of Treatment [...] of the anterior accessory saphenous vein. A holiday detector operator vein is present off the posterior tibial vein. LEFT: Status post endovascular venous laser ablation of the great saphenous vein in 2017. 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 Varicosities arise off the anterior accessory saphenous vein in the upper thigh and connected to the remnant great saphenous vein in the calf and knee. A holiday detector operator arises off the posterior tibial vein and [...] of the anterior accessory saphenous vein. A holiday detector operator vein is present off the posterior tibial vein. LEFT: Status post endovascular venous laser ablation of the great saphenous vein in 2017. 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 Varicosities arise off the anterior accessory saphenous vein in the upper thigh and connected to the remnant great saphenous vein in the calf and knee. A holiday detector operator arises off the posterior tibial vein and [...] of the anterior accessory saphenous vein. A holiday detector operator veinis present off the posterior tibial vein. LEFT: Status post endovascular venous laser ablation of the greatsaphenous vein in 2017. Severe incompetence of the great saphenous vein inthe knee. Varicosities arise off the anterior accessory saphenous vein inthe upper thigh and connected to the remnant great saphenous vein in the calf and knee. A holiday detector operator arises offthe posterior tibial vein and has [...] of the anterior accessory saphenous vein. A holiday detector operator veinis present off the posterior tibial vein. LEFT: Status post endovascular venous laser ablation of the greatsaphenous vein in 2017. Severe incompetence of the great saphenous vein inthe knee. Varicosities arise off the anterior accessory saphenous vein inthe upper thigh and connected to the remnant great saphenous vein in the calf and knee. A holiday detector operator arises offthe posterior tibial vein and has multiple varicosities, approximately 4cm above a superficial ulcer in the medial left ankle. 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
--- OUTSIDE RECORDS SUMMARY | 2023-09-17 09:46 | XMS_ITS | Clinical Summary ---
Author Name Unknown Organization [facility] Address [place], [place] [address] Care Team Providers Care Photo Mask Processor Name Role Phone Terrell Fernandez MD Primary Care Provider [phone] Allergies Active Allergy Reactions Criticality Noted Date [...] Department Care Team Description 07/02/2023 9:38 PM SURFACE SUPPLY BREATHING APPARATUS - 07/02/2023 11:51 PM SURFACE SUPPLY BREATHING APPARATUS Emergency [facility] [place] [address] [place] [address] Rickie Bailey MD Varicose veins of ankle [...] Comments Blood Pressure 135/85 07/02/2023 11:00 PM SURFACE SUPPLY BREATHING APPARATUS Pulse 92 07/02/2023 11:00 PM SURFACE SUPPLY BREATHING APPARATUS Temperature 37.1 ??C (98.7 ??F) 07/02/2023 9:49 PM CS T Respiratory Rate 18 07/02/2023 11:0 0 PM SURFACE SUPPLY BREATHING APPARATUS Oxygen Saturation 96% 07/02/2023 11: 00 PM SURFACE SUPPLY BREATHING APPARATUS Inhaled Oxygen Concentration - - Weight 203.8 kg (449 lb 4.8 oz) 07/02/2023 9:49 PM SURFACE SUPPLY BREATHING APPARATUS Height 190.5 cm (6' 3) 07/02/2023 9:49 PM SURFACE SUPPLY BREATHING APPARATUS Body Mass Index 56.16 07/02/2023 9:49 PM SURFACE SUPPLY BREATHING APPARATUS Plan of Treatment Health Maintenance Due Date [...] 7:11 AM 06/02/2012 12:53 PM Care Teams Photo Mask Processor Relationship Specialty Start Date End Date Terrell Fernandez MD [address] [place] [address] PCP - General Family Practice 08/11/21
== END 2023-09-17 09:45 | disposition home or self-care (01) ==
LOC: WOUND 09:44
PROVIDERS: PCP Family Medicine; Visit Provider Nurse Practitioner Family
DX: I87.312 Chronic venous hypertension (idiopathic) with ulcer of left lower extremity (principal); I87.2 Venous insufficiency (chronic) (peripheral); I89.0 Lymphedema, not elsewhere classified; L97.322 Non-pressure chronic ulcer of left ankle with fat layer exposed
CPT/HCPCS: 11042

== ENCOUNTER 2023-09-24 09:48 | Outpatient (CLI) | payer BC, SELFPAY ==
--- OUTSIDE RECORDS SUMMARY | 2023-09-24 09:50 | XMS_ITS ---
Author Name Unknown Organization [facility] Address [address] [place] [address] Care Team Providers Care Ad Compositor Name Role Phone Unavailable Unavailable Unavailable Surgery Details Not on file Complications Check Surgery Details section. Procedure Estimated Blood Loss Check Surgery Details section. Procedure Findings Check Surgery Details section. Procedure Specimens Taken Check Surgery Details section.
--- OUTSIDE RECORDS SUMMARY | 2023-09-24 09:50 | XMS_ITS | Referral Summary ---
Author Name Unknown Organization [facility] Address [address] [place] [address] Care Team Providers Care Building Construction Inspector Name Role Phone Elsewhere, Pcp Primary Care Provider Unavailabl e Source Comments Patient records contain information from all sites at [facility]. For routine questions regarding patient records, call [phone] during business hours, M-F 8:00 AM - 5:00 PM Central Time. Record requests for emergency care only can be directed to [phone] at any time.[facility] Encounters Date Type Department Care Team Description 07/30/2023 2:45 PM CDT - 07/30/2023 11:59 PM CDT Hospital Encounter Department of Radiology in [place], [place] [address] [place] [phone] Cuco Brown P.A.-C. 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 A internet manager vein is present off the posterior tibial vein. LEFT: Status post endovascular venous laser ablation of the great saphenous vein in 2016. 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 Varicosities arise off the anterior accessory saphenous vein in the upper thigh and connected to the remnant great saphenous vein in the calf and knee. A internet manager arises off the posterior tibial vein [...] of the anterior accessory saphenous vein. A internet manager vein is present off the posterior tibial vein. LEFT: Status post endovascular venous laser ablation of the great saphenous vein in 2017. 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 Varicosities arise off the anterior accessory saphenous vein in the upper thigh and connected to the remnant great saphenous vein in the calf and knee. A internet manager arises off the posterior tibial vein [...] of the anterior accessory saphenous vein. A internet manager veinis present off the posterior tibial vein. LEFT: Status post endovascular venous laser ablation of the greatsaphenous vein in 2017. Severe incompetence of the great saphenous vein inthe knee. Varicosities arise off the anterior accessory saphenous vein inthe upper thigh and connected to the remnant great saphenous vein in the calf and knee. A internet manager arises offthe posterior tibial vein and [...] of the anterior accessory saphenous vein. A internet manager veinis present off the posterior tibial vein. LEFT: Status post endovascular venous laser ablation of the greatsaphenous vein in 2017. Severe incompetence of the great saphenous vein inthe knee. Varicosities arise off the anterior accessory saphenous vein inthe upper thigh and connected to the remnant great saphenous vein in the calf and knee. A internet manager arises offthe posterior tibial vein and has multiple varicosities, approximately 4cm above a superficial ulcer in the medial left ankle. Cuco Brown P.A.-C. IMG US PROCEDUR ES * Leg-General Surgery Image Exam (07/11/2023 2:10 PM TUBE BUFFER) 07/11/2023 2:10 PM TUBE BUFFER Narrative IIMS - 07/11/2023 2:12 PM TUBE BUFFER This order has been created and auto-finalized to support the import of images acquired without order. The clinical documentation to support these images can be found on the encounter that produced images. Provider Not In System IMG NON RAD IMAGI NG PROCEDURES IIOH NA * (ABNORMAL) BMP (Basic Metabolic Panel) (12/27/2017 5:11 PM CDT) Potassium, P 3.5(L) 3.6 - 5.2 mmol/L 12/27/2017 5:36 PM CDT [facility] [place] Sodium, P 140 135 - 145 mmol/L 12/27/2017 5:36 PM CDT [facility] [place] Chloride, P 102 98 - 107 mmol/L 12/27/2017 5:36 PM CDT [facility] [place] Bicarbonate, P 25 22 - 29 mmol/L 12/27/2017 5:36 PM CDT [facility] [place] Anion Gap, P 13 7 - 15 12/27/2017 5:36 PM CDT [facility] [place] BUN (Blood Urea Nitrogen), P 15 8 - 24 mg/dL 12/27/2017 5:36 PM CDT [facility] [place] Creatinine 0.85 0.74 - 1.35 mg/dL 12/27/2017 5:36 PM CDT [facility] [place] eGFR-Black/Afri can Cape Verdean >90 >=60 mL/min/BSA 12/27/2017 5:36 PM CDT [facility] [place] Comment: ----ADDITIONAL INFORMATION---- Estimated GFR calculated using the 2009 CKD_EPI creatinine equation. eGFR Non-Black/Afric an Cape Verdean >90 >=60 mL/min/BSA 12/27/2017 5:36 PM CDT [facility] [place] Comment: ----ADDITIONAL INFORMATION---- Estimated GFR calculated using the 2009 CKD_EPI creatinine equation. Calcium, Total, P 9.1 8.6 - 10.0 mg/dL 12/27/2017 5:36 PM CDT [facility] [place] Glucose, P 89 70 - 140 mg/dL 12/27/2017 5:36 PM CDT [facility] [place] Blood (Blood, Venous) 12/27/2017 5:11 PM CDT 12/27/2017 5:16 PM CDT Gabriel Mccracken M.D. LAB BLOOD ADD-ON [facility] [place] [address] [place], [place] [id number] [place] [address] * (ABNORMAL) Lipid Panel (01/25/2016 8:48 AM [...] for FH and FDB is available through [facility]: FH/ADH Genetic Reflex Panel (test ADHP). Acquired (non-genetic) causes of markedly increased LDL cholesterol include cholestatic liver disease due to the presence of LpX. If a genetic form of hypercholesterolemia is suspected, family studies including biochemical testing for lipids (total cholesterol,triglycerides, LDL cholesterol and HDL cholesterol) are recommended. ??Please contact the laboratory at or the on-line test catalog at [facility] for information about how to order these [...] Recently Relevant to Health Maintenance Care Teams Building Construction Inspector Relationship Specialty Start Date End Date Elsewhere, Pcp PCP - General Family Medicine 08/06/17
--- OUTSIDE RECORDS SUMMARY | 2023-09-24 09:50 | XMS_ITS | Encounter Summary ---
Author Name Unknown Organization [facility] Address [address] [place] [address] Care Team Providers Care Pocket Secretary Assembler Name Role Phone Elsewhere, Pcp Primary Care Provider Unavailabl e Encounter Details Date Type Department Care Team (Late st Contact Info) Description 11/07/2017 [facility] [address] [place] [address] Terrell Fernandez M.D. [address] [place] [address] Obesity Unspecified (Primary Dx) Social History Tobacco [...] Primary documented in this encounter Care Teams Pocket Secretary Assembler Relationship Specialty Start Date End Date Elsewhere, Pcp PCP - General Family Medicine 08/06/17 documented as of this encounter
--- OUTSIDE RECORDS SUMMARY | 2023-09-24 09:50 | XMS_ITS | Clinical Summary ---
Author Name Unknown Organization [facility] Address [place], [place] [address] Care Team Providers Care Teacher Advisor Name Role Phone Terrell Fernandez MD Primary Care Provider [phone] Allergies Active Allergy Reactions Criticality Noted Date [...] Department Care Team Description 07/02/2023 9:38 PM INCIDENT RESPONSE MANAGER - 07/02/2023 11:51 PM INCIDENT RESPONSE MANAGER Emergency [facility] [address] [place] [address] Rickie Bailey MD Varicose veins of ankle [...] Comments Blood Pressure 135/85 07/02/2023 11:00 PM INCIDENT RESPONSE MANAGER Pulse 92 07/02/2023 11:00 PM INCIDENT RESPONSE MANAGER Temperature 37.1 ??C (98.7 ??F) 07/02/2023 9:49 PM CS T Respiratory Rate 18 07/02/2023 11:0 0 PM INCIDENT RESPONSE MANAGER Oxygen Saturation 96% 07/02/2023 11: 00 PM INCIDENT RESPONSE MANAGER Inhaled Oxygen Concentration - - Weight 203.8 kg (449 lb 4.8 oz) 07/02/2023 9:49 PM INCIDENT RESPONSE MANAGER Height 190.5 cm (6' 3) 07/02/2023 9:49 PM INCIDENT RESPONSE MANAGER Body Mass Index 56.16 07/02/2023 9:49 PM INCIDENT RESPONSE MANAGER Plan of Treatment Health Maintenance Due Date [...] 7:11 AM 06/02/2012 12:53 PM Care Teams Teacher Advisor Relationship Specialty Start Date End Date Terrell Fernandez MD [address] [place] [address] PCP - General Family Practice 08/11/21
--- OUTSIDE RECORDS SUMMARY | 2023-09-24 09:50 | XMS_ITS | Encounter Summary ---
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 [address] [place] [address] [facility] Region Referral ID Status Reason Start Date Expiration Date Visits Re quested Visits Authorized [id number] Closed 07/11/2023 07/10/2024 1 1 Encounter Details Date Type Department Care Team (Latest Contact Info) Description 07/30/2023 2:45 PM CDT - 07/30/2023 11:59 PM CDT Hospital Encounter Department of Radiology in [place], [place] [address] [place] [address] Cuco Brown P.A.-C. [address] [place] [address] Varicose Veins Of Bilateral Lower [...] of the anterior accessory saphenous vein. A rn emergency vein is present off the posterior tibial vein. LEFT: Status post endovascular venous laser ablation of the great saphenous vein in 2017. 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 Varicosities arise off the anterior accessory saphenous vein in the upper thigh and connected to the remnant great saphenous vein in the calf and knee. A rn emergency arises off the posterior tibial vein and [...] of the anterior accessory saphenous vein. A rn emergency vein is present off the posterior tibial vein. LEFT: Status post endovascular venous laser ablation of the great saphenous vein in 2017. 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 Varicosities arise off the anterior accessory saphenous vein in the upper thigh and connected to the remnant great saphenous vein in the calf and knee. A rn emergency arises off the posterior tibial vein and [...] of the anterior accessory saphenous vein. A rn emergency veinis present off the posterior tibial vein. LEFT: Status post endovascular venous laser ablation of the greatsaphenous vein in 2017. Severe incompetence of the great saphenous vein inthe knee. Varicosities arise off the anterior accessory saphenous vein inthe upper thigh and connected to the remnant great saphenous vein in the calf and knee. A rn emergency arises offthe posterior tibial vein and has [...] of the anterior accessory saphenous vein. A rn emergency veinis present off the posterior tibial vein. LEFT: Status post endovascular venous laser ablation of the greatsaphenous vein in 2017. Severe incompetence of the great saphenous vein inthe knee. Varicosities arise off the anterior accessory saphenous vein inthe upper thigh and connected to the remnant great saphenous vein in the calf and knee. A rn emergency arises offthe posterior tibial vein and has multiple varicosities, approximately 4cm above a superficial ulcer in the medial left ankle. 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
--- OUTSIDE RECORDS SUMMARY | 2023-09-24 09:50 | XMS_ITS | Encounter Summary ---
Author Name Unknown Organization [facility] Address [address] [place] [address] Care Team Providers Care Plant Attendant Name Role Phone Elsewhere, Pcp Primary Care Provider Unavailabl e Encounter Details Date Type Department Care Team (Late st Contact Info) Description 03/25/2018 [facility] [address] [place] [address] Terrell Fernandez M.D. [address] [place] [address] Contracture Dupuytren's (Primary Dx) Social History Tobacco [...] Primary documented in this encounter Care Teams Plant Attendant Relationship Specialty Start Date End Date Elsewhere, Pcp PCP - General Family Medicine 08/06/17 documented as of this encounter
--- OUTSIDE RECORDS SUMMARY | 2023-09-24 09:50 | XMS_ITS | Encounter Summary ---
Author Name Unknown Organization [facility] Address [address] [place] [address] Care Team Providers Care Vp Genetic Name Role Phone Elsewhere, Pcp Primary Care Provider Unavailabl e Encounter Details Date Type Department Care Team (Late st Contact Info) Description 07/11/2023 2:10 PM AGENT TICKETING GATE Ancillary Procedure Department of General Surgery Social [...] SURGERY IMAGE EXAM Routine 07/11/2023 2:10 PM AGENT TICKETING GATE documented in this encounter Results * Leg-General Surgery Image Exam (07/11/2023 2:10 PM AGENT TICKETING GATE) 07/11/2023 2:10 PM AGENT TICKETING GATE Narrative IIMS - 07/11/2023 2:12 PM AGENT TICKETING GATE This order has been created and auto-finalized to support the import of images acquired without order. The clinical documentation to support these images can be found on the encounter that produced images. Provider Not In System IMG NON RAD IMAGI NG PROCEDURES IIMS NA documented in this encounter Visit Diagnoses Not on filedocumented in this encounter Care Teams Vp Genetic Relationship Specialty Start Date End Date Elsewhere, Pcp PCP - General Family Medicine 08/06/17 documented as of this encounter
--- OUTSIDE RECORDS SUMMARY | 2023-09-24 09:50 | XMS_ITS | Encounter Summary ---
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 [address] [place] [address] [facility] Region Referral ID Status Reason Start Date Expiration Date Visits Re quested Visits Authorized [id number] Closed 07/11/2023 07/10/2024 1 1 SHER ACCORDION Reason for Visit * Reason Comments Consult Varicose veins * Appointment Request (Routine) - Closed Specialty Diagnoses / Procedures Referred By Contac t Referred To Contact General Surgery Referral ID Status Reason Start Date Expiration Date Visits Re quested Visits Authorized [id number] Closed 07/05/2023 07/04/2024 1 1 Encounter Details Date Type Department Care Team (Latest Contact Info) Description 07/11/2023 2:00 PM FINISHER ACCORDION Comprehensive Visit Department of General Surgery in [place], [place] [address] [place] [address] Cuco Brown P.A.-C. [address], [place] [address] Varicose Veins Of Bilateral Lower Extremity With [...] patient wasadvised of the need to wear [id number] compression stockings for a minimum of 3 months. They understand once the ultrasound is complete, it will be reviewed by Dr. Tobias for consideration of treatment. Additionally, the nursing staff will complete the prior authorization process after which they will receive a phone call to notify them of approval and discuss scheduling the procedure. All of their questions were answered. SHER ACCORDION documented in this encounter Plan of Treatment [...] of the anterior accessory saphenous vein. A academic vice president vein is present off the posterior tibial vein. LEFT: Status post endovascular venous laser ablation of the great saphenous vein in 2017. 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 Varicosities arise off the anterior accessory saphenous vein in the upper thigh and connected to the remnant great saphenous vein in the calf and knee. A academic vice president arises off the posterior tibial vein and [...] of the anterior accessory saphenous vein. A academic vice president vein is present off the posterior tibial vein. LEFT: Status post endovascular venous laser ablation of the great saphenous vein in 2017. 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 Varicosities arise off the anterior accessory saphenous vein in the upper thigh and connected to the remnant great saphenous vein in the calf and knee. A academic vice president arises off the posterior tibial vein and [...] of the anterior accessory saphenous vein. A academic vice president veinis present off the posterior tibial vein. LEFT: Status post endovascular venous laser ablation of the greatsaphenous vein in 2017. Severe incompetence of the great saphenous vein inthe knee. Varicosities arise off the anterior accessory saphenous vein inthe upper thigh and connected to the remnant great saphenous vein in the calf and knee. A academic vice president arises offthe posterior tibial vein and has [...] of the anterior accessory saphenous vein. A academic vice president veinis present off the posterior tibial vein. LEFT: Status post endovascular venous laser ablation of the greatsaphenous vein in 2017. Severe incompetence of the great saphenous vein inthe knee. Varicosities arise off the anterior accessory saphenous vein inthe upper thigh and connected to the remnant great saphenous vein in the calf and knee. A academic vice president arises offthe posterior tibial vein and has multiple varicosities, approximately 4cm above a superficial ulcer in the medial left ankle. 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
--- OUTSIDE RECORDS SUMMARY | 2023-09-24 09:50 | XMS_ITS | Clinical Summary ---
Author Name Unknown Organization [facility] Address [address] [place] [address] Care Team Providers Care Vice President Global Digital Marketing Name Role Phone Elsewhere, Pcp Primary Care Provider Unavailabl e Source Comments Patient records contain information from all sites at [facility]. For routine questions regarding patient records, call [phone] during business hours, M-F 8:00 AM - 5:00 PM Central Time. Record requests for emergency care only can be directed to [phone] at any time.[facility] Allergies Active Allergy Reactions Criticality Noted Date [...] CDT Hospital Encounter Department of Radiology in [place], [place] [address] [address] Cuco Brown P.A.-C. 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 A furniture finisher helper vein is present off the posterior tibial vein. LEFT: Status post endovascular venous laser ablation of the great saphenous vein in 2017. 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 Varicosities arise off the anterior accessory saphenous vein in the upper thigh and connected to the remnant great saphenous vein in the calf and knee. A furniture finisher helper arises off the posterior tibial vein and [...] of the anterior accessory saphenous vein. A furniture finisher helper vein is present off the posterior tibial vein. LEFT: Status post endovascular venous laser ablation of the great saphenous vein in 2017. 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 Varicosities arise off the anterior accessory saphenous vein in the upper thigh and connected to the remnant great saphenous vein in the calf and knee. A furniture finisher helper arises off the posterior tibial vein and [...] of the anterior accessory saphenous vein. A furniture finisher helper veinis present off the posterior tibial vein. LEFT: Status post endovascular venous laser ablation of the greatsaphenous vein in 2017. Severe incompetence of the great saphenous vein inthe knee. Varicosities arise off the anterior accessory saphenous vein inthe upper thigh and connected to the remnant great saphenous vein in the calf and knee. A furniture finisher helper arises offthe posterior tibial vein and has [...] of the anterior accessory saphenous vein. A furniture finisher helper veinis present off the posterior tibial vein. LEFT: Status post endovascular venous laser ablation of the greatsaphenous vein in 2017. Severe incompetence of the great saphenous vein inthe knee. Varicosities arise off the anterior accessory saphenous vein inthe upper thigh and connected to the remnant great saphenous vein in the calf and knee. A furniture finisher helper arises offthe posterior tibial vein and has multiple varicosities, approximately 4cm above a superficial ulcer in the medial left ankle. Cuco Brown P.A.-C. IMG US PROCEDUR ES * Leg-General Surgery Image Exam (07/11/2023 2:10 PM MENTAL HEALTH ASSISTANT) 07/11/2023 2:10 PM MENTAL HEALTH ASSISTANT Narrative [facility] - 07/11/2023 2:12 PM MENTAL HEALTH ASSISTANT This order has been created and auto-finalized [...] - 5.2 mmol/L 12/27/2017 5:36 PM CDT [facility] Sodium, P 140 135 - 145 mmol/L 12/27/2017 5:36 PM CDT [facility] Chloride, P 102 98 - 107 mmol/L 12/27/2017 5:36 PM CDT [facility] Bicarbonate, P 25 22 - 29 mmol/L 12/27/2017 5:36 PM CDT [facility] Anion Gap, P 13 7 - 15 12/27/2017 5:36 PM CDT [facility] BUN (Blood Urea Nitrogen), P 15 8 - 24 mg/dL 12/27/2017 5:36 PM CDT [facility] Creatinine 0.85 0.74 - 1.35 mg/dL 12/27/2017 5:36 PM CDT [facility] eGFR-Black/Afri can Sierra [place]an >90 >=60 mL/min/BSA 12/27/2017 5:36 PM CDT [facility] Comment: ----ADDITIONAL INFORMATION---- Estimated GFR calculated using the 2009 CKD_EPI creatinine equation. eGFR Non-Black/Afric an Sierra [place]an >90 >=60 mL/min/BSA 12/27/2017 5:36 PM CDT [facility] Comment: ----ADDITIONAL INFORMATION---- Estimated GFR calculated using the 2009 CKD_EPI creatinine equation. Calcium, Total, P 9.1 8.6 - 10.0 mg/dL 12/27/2017 5:36 PM CDT [facility] Glucose, P 89 70 - 140 mg/dL 12/27/2017 5:36 PM CDT [facility] Blood (Blood, Venous) 12/27/2017 5:11 PM CDT 12/27/2017 5:16 PM CDT Gabriel Mccracken M.D. LAB BLOOD ADD-ON [facility] [address] * (ABNORMAL) Lipid Panel (01/25/2016 8:48 [...] for FH and FDB is available through [employer]: FH/ADH Genetic Reflex Panel (test ADHP). Acquired (non-genetic) causes of markedly increased LDL cholesterol include cholestatic liver disease due to the presence of LpX. If a genetic form of hypercholesterolemia is suspected, family studies including biochemical testing for lipids (total cholesterol,triglycerides, LDL cholesterol and HDL cholesterol) are recommended. ??Please contact the laboratory at or the on-line test catalog at [facility] for information about how to order these [...] Recently Relevant to Health Maintenance Care Teams Vice President Global Digital Marketing Relationship Specialty Start Date End Date Elsewhere, Pcp PCP - General Family Medicine 08/06/17
--- OUTSIDE RECORDS SUMMARY | 2023-09-24 09:50 | XMS_ITS | Encounter Summary ---
Author Name Unknown Organization [facility] Address [address] [place] [address] Care Team Providers Care Aerospace Technician Name Role Phone Elsewhere, Pcp Primary Care Provider Unavailabl e Reason for Visit * Reason Comments Bleeding/Bruising Encounter Details Date Type Department Care Team (Late st Contact Info) Description 07/02/2023 9:37 PM PASTORAL ASSISTANT - 07/02/2023 11:51 PM PASTORAL ASSISTANT Emergency [facility] [address] [place] [id number] Varicose Veins Of Right Lower Extremity With [...] Primary documented in this encounter Care Teams Aerospace Technician Relationship Specialty Start Date End Date Elsewhere, Pcp PCP - General Family Medicine 08/06/17 documented as of this encounter
--- OUTSIDE RECORDS SUMMARY | 2023-09-24 09:51 | XMS_ITS | Data Portability ---
Author Name Unknown Address [address] [place] [address] Phone [phone] Organization [place] [facility], [employer] Address [address] [address] Assessment Encounter Date Assessment Date Assessment LastModified [...] Organization Details Last Modified Time Details Appointments Office Visit 2023 03:00P Kenzie George Not available Not available Not available Lab None recorde d. Referral None recorde d. Procedures None recorde d. Surgeries None recorde d. Imaging None recorde d. Medication Orders None recorde d. Patient TargetsNo targets recorded. Patient InstructionsNo instructions recorded. Reason for Referral None Reported. Problems Name Status Onset Date Resolution Date Notes Provider Name and Address Organization Details Recorded Time Foot joint pain Active 019 Foot joint pain; Original Code: 624327097 Maximino ginal Codesystem: SNOMED CT Classifica tion: Medical Confi rmation Status: Confirmed Not Available [facility] 3 09:13:23 Hypertensive disorder Active 017 Hypertensive disorder; Original Code: 7561239015 Or iginal Codesystem: SNOMED CT Classifica tion: Medical Confi rmation Status: Confirmed Not Available [facility] 3 09:13:23 Peroneal tendinitis of left lower limb Active 019 Peroneal tendinitis of left lower limb; Original Code: 5223274062 Or iginal Codesystem: SNOMED CT Classifica tion: Medical Confi rmation Status: Confirmed Not Available [facility] 3 09:13:23 Heart disease Active 017 Heart disease; Original Code: 73373679 Orig inal Codesystem: SNOMED CT Classifica tion: Medical Confi rmation Status: Confirmed Not Available [facility] 3 09:13:23 Foot pain Active 017 Foot pain; Original Code: [id number] Maximino ginal Codesystem: SNOMED CT Classifica tion: Medical Confi rmation Status: Confirmed Not Available [facility] 3 09:13:23 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 Procedures Surgical History Date Name Laterality Status Provider Name and Address Organization Details Recorded Time [address] Christianson completed [facility]ws - [facility] 09/06/2023 16:12:[address] Christianson active SOPHIE Mathews - [facility] 01/11/2023 14:18:[address] Christianson completed Arvind George, DPKenzie [address] [place], [address], [facility] - [facility] [...] Diagnosis SNOMED-CT Code 8361 Arvind George DPM [place] [facility] [address] [place] [address] 12/28/2022 14:45:58 12/28/2022 16:06:42 Paronychia of toe of right foot [id number] 02 [id number] Arvind George DPM [place] [facility] [address] [place] [address] 09/06/2023 15:53:58 09/11/2023 10:41:24 Ingrowing nail [id number] Paronychia of toe of right foot [id number] 02 Health Concerns Section Related Observation LastModified by Organization Detai ls LastModified Time None Recorded Concern Status LastModified by Organization Details LastModified Time None Recorded Advance Directives Directive None Recorded Payers Encounter Date Sequence Insurance Name Policy Number Policy Lin Covered Member ID Lin Member ID Guarantor Name 09/06/2023 1 [place] [id number] Robert Charles [id number] Robert Charles 12/28/2022 1 MEDICA CHOICE [facility] - CHOICE PLUS (POS) Robert Charles [id number] Robert Charles Notes Date Note Type Note [...] the right Hallux. Arvind George DPM [address] [place], [address], [facility] 12/28/2022 15:54:14 [...] the right Hallux. Arvind George DPM [address] [place], [address], [facility] 09/10/2023 14:32:25
== END 2023-09-24 09:49 | disposition home or self-care (01) ==
LOC: WOUND 09:48
PROVIDERS: PCP Family Medicine; Visit Provider Nurse Practitioner Family
DX: I87.312 Chronic venous hypertension (idiopathic) with ulcer of left lower extremity (principal); I87.2 Venous insufficiency (chronic) (peripheral); L97.328 Non-pressure chronic ulcer of left ankle with other specified severity; I89.0 Lymphedema, not elsewhere classified
CPT/HCPCS: G0463

== ENCOUNTER 2024-05-12 14:00 | Outpatient (CLI) | payer BC, SELFPAY | END 2024-05-12 14:11 | disposition home or self-care (01) | LOC: WOUND 05-27 08:27 | PROVIDERS: PCP Family Medicine; Visit Provider Nurse Practitioner Family | DX: I89.0 Lymphedema, not elsewhere classified (principal); I73.9 Peripheral vascular disease, unspecified; E66.01 Morbid (severe) obesity due to excess calories; Z68.43 Body mass index [BMI] 50.0-59.9, adult | CPT/HCPCS: 97602; G0463 ==

== ENCOUNTER 2024-06-09 09:25 | Outpatient (CLI) | payer BC, SELFPAY | END 2024-06-09 09:26 | disposition home or self-care (01) | LOC: WOUND 09:26 | PROVIDERS: PCP Family Medicine; Visit Provider Nurse Practitioner Family | DX: I89.0 Lymphedema, not elsewhere classified (principal); I73.9 Peripheral vascular disease, unspecified; E66.01 Morbid (severe) obesity due to excess calories; Z68.43 Body mass index [BMI] 50.0-59.9, adult | CPT/HCPCS: 97602 ==

== ENCOUNTER 2024-07-07 09:52 | Outpatient (CLI) | payer BC, SELFPAY | END 2024-07-07 09:53 | disposition home or self-care (01) | LOC: WOUND 09:52 | PROVIDERS: PCP Family Medicine; Visit Provider Nurse Practitioner Family | DX: I89.0 Lymphedema, not elsewhere classified (principal); I73.9 Peripheral vascular disease, unspecified; E66.01 Morbid (severe) obesity due to excess calories; Z68.43 Body mass index [BMI] 50.0-59.9, adult | CPT/HCPCS: G0463 ==

== ENCOUNTER 2024-07-20 14:55 | Outpatient (CLI) | payer BC, SELFPAY | END 2024-07-20 14:56 | disposition home or self-care (01) | PROVIDERS: PCP Family Medicine; Visit Provider Nurse Practitioner Family | DX: I10 Essential (primary) hypertension (principal); L03.115 Cellulitis of right lower limb | CPT/HCPCS: 80048; 85025 ==

== ENCOUNTER 2024-08-04 08:59 | Outpatient (CLI) | payer BC, SELFPAY | END 2024-08-04 09:00 | disposition home or self-care (01) | LOC: WOUND 08:59 | PROVIDERS: PCP Family Medicine; Visit Provider Family Medicine | DX: I89.0 Lymphedema, not elsewhere classified (principal); I73.9 Peripheral vascular disease, unspecified; E66.01 Morbid (severe) obesity due to excess calories; Z68.43 Body mass index [BMI] 50.0-59.9, adult | CPT/HCPCS: G0463 ==

== ENCOUNTER 2024-09-22 10:48 | Outpatient (CLI) | payer BC, SELFPAY | END 2024-09-22 10:49 | disposition home or self-care (01) | PROVIDERS: PCP Family Medicine; Visit Provider Family Medicine | DX: I10 Essential (primary) hypertension (principal); N40.1 Benign prostatic hyperplasia with lower urinary tract symptoms; R35.1 Nocturia; Z12.5 Encounter for screening for malignant neoplasm of prostate | CPT/HCPCS: 80048; 80061; G0103 ==

== ENCOUNTER 2024-11-25 08:53 | Outpatient (CLI) | payer BC, SELFPAY | END 2024-11-25 08:54 | disposition home or self-care (01) | LOC: RAD 08:53 | PROVIDERS: PCP Family Medicine; Visit Provider Family Medicine | DX: I71.20 Thoracic aortic aneurysm, without rupture, unspecified (principal); I35.1 Nonrheumatic aortic (valve) insufficiency; I34.0 Nonrheumatic mitral (valve) insufficiency; I07.1 Rheumatic tricuspid insufficiency; I48.91 Unspecified atrial fibrillation | CPT/HCPCS: 93306 ==